=== PATIENT | male | born 1945 | race Caucasian/White ===

== ENCOUNTER 2016-12-23 11:30 | Emergency (ER) | payer MEDICARE, OTHER ==
[2016-12-23 11:33] VITALS: BP 133/62; PULSE 96; RESP 18; TEMP 97.4
[2016-12-23] MEDS ORDERED: TOPICAL SKIN ADHESIVE 1 EACH AMP TOPICAL ONE (11:48)
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
== END 2016-12-23 12:13 | disposition home or self-care (01) ==
LOC: EC 11:30
DX: S01.81XA Laceration without foreign body of other part of head, initial encounter (principal); I11.0 Hypertensive heart disease with heart failure; I50.9 Heart failure, unspecified; I48.91 Unspecified atrial fibrillation; F32.9 Major depressive disorder, single episode, unspecified; Z87.891 Personal history of nicotine dependence; Z79.82 Long term (current) use of aspirin; Z79.899 Other long term (current) drug therapy; W22.09XA Striking against other stationary object, initial encounter
CPT/HCPCS: 12013; 99282

== ENCOUNTER 2017-04-10 13:40 | Emergency (ER) | payer MEDICARE, OTHER ==
[2017-04-10 14:03] VITALS: TEMP 98.2
[2017-04-10] MEDS ORDERED: SODIUM CHLORIDE 0.9% 500 ML IV STA (14:41)
--- NOTE | 2017-04-10 15:02 | ED ---
General Adult HPI - General Chief complaint: Shortness of Breath Stated complaint: anxiety Time Seen by Provider: 04/10/17 14:36 Source: EMS, RN notes reviewed, Caregiver Mode of arrival: EMS Limitations: altered mental status - History of Present Illness Initial comments: 71 yo male presents to the ER with cc of episode of anxiety and shortness of breath. They state that he was very shaky today he seemed to be having some difficulty in breathing today. They state that they were concerned due to the patient's behavior so they thought they should be seen. He stated his blood pressure was elevated during that period. They state that he does suffer from mental handicap they state that he does suffer from shortness of breath and time to time but this just seemed different so they were concerned. Patient denies any recent fever, chills, shortness of breath, chest pain, back pain, abdominal pain, nausea vomiting, numbness or tingling, dysuria or hematuria, constipation or diarrhea, headaches or visual changes, or any other current symptoms. - Related Data Home Medications Medication Instructions Recorded Confirmed Simvastatin [Zocor] 40 mg PO HS 06/21/15 04/10/17 Tamsulosin [Flomax] 0.4 mg PO BID 06/21/15 04/10/17 busPIRone HCL [Buspar] 30 mg PO BID 06/21/15 04/10/17 Aspirin EC [Ecotrin Low Dose] 81 mg PO HS 07/02/16 04/10/17 Benazepril HCl 20 mg PO BID 07/02/16 04/10/17 DULoxetine HCL [Cymbalta] 60 mg PO DAILY 07/02/16 04/10/17 Econazole Nitrate 1 applic TOPICAL HS 07/02/16 04/10/17 Isosorbide Mononitrate ER [Imdur] 30 mg PO HS 07/02/16 04/10/17 Divalproex [Depakote] 250 mg PO HS 04/10/17 04/10/17 Furosemide [Lasix] 20 mg PO DAILY 04/10/17 04/10/17 Metoprolol Succinate [Toprol XL] 50 mg PO DAILY 04/10/17 04/10/17 guaiFENesin-DM 100-10MG/5ML 10 ml PO Q4H PRN 04/10/17 04/10/17 [Robitussin DM] hydrALAZINE HCL [Apresoline] 50 mg PO TID 04/10/17 04/10/17 Allergies Allergy/AdvReac Type Severity Reaction Status Date / Time No Known Allergies Allergy Verified 04/10/17 14:11 Review of Systems ROS Statement: Those systems with pertinent positive or pertinent negative responses have been documented in the HPI. ROS Other: All systems not noted in ROS Statement are negative. Past Medical History Past Medical History: Atrial Fibrillation, Heart Failure, Dementia, Hypertension , Prostate Disorder Additional Past Medical History / Comment(s): Mild mental retardation, lives in a detention. Slightly SOB @ times, has some dizziness @ times. History of Any Multi-Drug Resistant Organisms: None Reported Past Surgical History: Unable to Obtain Additional Past Surgical History / Comment(s): Cataracts, teeth extracted,fell at detention and required stitiches in the past. Full surgical hx. not available. Past Anesthesia/Blood Transfusion Reactions: No Reported Reaction Past Psychological History: Depression Smoking Status: Former smoker Past Alcohol Use History: None Reported Past Drug Use History: None Reported - Past Family History Father History Unknown: Yes Family Medical History: Unable to Obtain Mother History Unknown: Yes Family Medical History: Unable to Obtain General Exam - General Exam Comments Initial Comments: General: The patient is awake and alert, in no distress, and does not appear acutely ill. Eye: Pupils are equal, round and reactive to light, extra-ocular movements are intact; there is normal conjunctiva bilaterally. No signs of icterus. Ears, nose, mouth and throat: There are moist mucous membranes and no oral lesions. Neck: The neck is supple, there is no tenderness. Cardiovascular: There is a regular rate and rhythm. No murmur, rub or gallop is appreciated. Respiratory: Lungs are clear to auscultation, respirations are non-labored, breath sounds are equal. No wheezes, stridor, rales, or rhonchi. Gastrointestinal: Soft, non-distended, non-tender abdomen without masses or organomegaly noted. There is no rebound or guarding present. No CVA tenderness. Bowel sounds are unremarkable. Back: There is no tenderness to palpation in the midline. There is no obvious deformity. No rashes noted. Musculoskeletal: Normal ROM, no tenderness, There is no pedal edema. There is no calf tenderness or swelling. Sensation intact. Pulses equal bilaterally 2+. Neurological: CN II-XII intact, There are no obvious motor or sensory deficits. Coordination appears grossly intact. Speech is normal. Skin: Skin is warm and dry and no rashes or lesions are noted. Psychiatric: Cooperative, appropriate mood & affect, normal judgment. Limitations: altered mental status Course Vital Signs 04/10/17 13:59 Temperature 98.2 F Pulse Rate 83 Respiratory 18 Rate Blood Pressure 177/90 O2 Sat by Pulse 97 Oximetry EKG Findings - EKG Comments: EKG Findings:: normal sinus rhythm 80 bpm, normal axis, no atopy, no S-T depressions or elevations, Medical Decision Making - Medical Decision Making 70-year-old male presents for episode where he seemed to be having difficulty breathing. Patient has remained stable here and is 97 on room air. Patient decided 50 comfortably that he has had no episodes and blood work is reviewed and show any acute processes. This time we discussed likely upper respiratory infection. We discussed follow-up with Dr. donnie sagastume. We discussed other etiologies and when to come back to the ER. Family and patient stated he understood and they are in agreement with plan. They'll be discharged. - Lab Data Result diagrams: 04/10/17 15:13 04/10/17 15:13 Lab Results 04/10/17 04/10/17 04/10/17 Range/Units 15:13 15:13 15:13 WBC 12.4 H (3.8-10.6) k/uL RBC 4.94 (4.30-5.90) m/uL Hgb 15.9 (13.0-17.5) gm/dL Hct 45.8 (39.0-53.0) % MCV 92.6 (80.0-100.0) fL MCH 32.2 (25.0-35.0) pg MCHC 34.8 (31.0-37.0) g/dL RDW 12.5 (11.5-15.5) % Plt Count 212 (150-450) k/uL Neutrophils % 86 % Lymphocytes % 4 % Monocytes % 6 % Eosinophils % 2 % Basophils % 0 % Neutrophils # 10.7 H (1.3-7.7) k/uL Lymphocytes # 0.5 L (1.0-4.8) k/uL Monocytes # 0.7 (0-1.0) k/uL Eosinophils # 0.2 (0-0.7) k/uL Basophils # 0.0 (0-0.2) k/uL PT (9.0-12.0) sec INR (<1.2) APTT (22.0-30.0) sec Sodium 132 L (137-145) mmol/L Potassium 4.1 (3.5-5.1) mmol/L Chloride 98 (98-107) mmol/L Carbon Dioxide 23 (22-30) mmol/L Anion Gap 11 mmol/L BUN 14 (9-20) mg/dL Creatinine 0.94 (0.66-1.25) mg/dL Est GFR (MDRD) Af Amer >60 (>60 ml/min/1.73 sqM) Est GFR (MDRD) Non-Af >60 (>60 ml/min/1.73 sqM) Glucose 121 H (74-99) mg/dL Calcium 9.2 (8.4-10.2) mg/dL Magnesium 1.9 (1.6-2.3) mg/dL Total Bilirubin 1.0 (0.2-1.3) mg/dL AST 23 (17-59) U/L ALT 33 (21-72) U/L Alkaline Phosphatase 79 (38-126) U/L Total Creatine Kinase 290 H (55-170) U/L CK-MB (CK-2) 2.6 H* (0.0-2.4) ng/mL CK-MB (CK-2) Rel Index 0.9 Troponin I <0.012 (0.000-0.034) ng/mL Total Protein 7.5 (6.3-8.2) g/dL Albumin 4.6 (3.5-5.0) g/dL 04/10/17 Range/Units 15:13 WBC (3.8-10.6) k/uL RBC (4.30-5.90) m/uL Hgb (13.0-17.5) gm/dL Hct (39.0-53.0) % MCV (80.0-100.0) fL MCH (25.0-35.0) pg MCHC (31.0-37.0) g/dL RDW (11.5-15.5) % Plt Count (150-450) k/uL Neutrophils % % Lymphocytes % % Monocytes % % Eosinophils % % Basophils % % Neutrophils # (1.3-7.7) k/uL Lymphocytes # (1.0-4.8) k/uL Monocytes # (0-1.0) k/uL Eosinophils # (0-0.7) k/uL Basophils # (0-0.2) k/uL PT 10.6 (9.0-12.0) sec INR 1.0 (<1.2) APTT 27.7 (22.0-30.0) sec Sodium (137-145) mmol/L Potassium (3.5-5.1) mmol/L Chloride (98-107) mmol/L Carbon Dioxide (22-30) mmol/L Anion Gap mmol/L BUN (9-20) mg/dL Creatinine (0.66-1.25) mg/dL Est GFR (MDRD) Af Amer (>60 ml/min/1.73 sqM) Est GFR (MDRD) Non-Af (>60 ml/min/1.73 sqM) Glucose (74-99) mg/dL Calcium (8.4-10.2) mg/dL Magnesium (1.6-2.3) mg/dL Total Bilirubin (0.2-1.3) mg/dL AST (17-59) U/L ALT (21-72) U/L Alkaline Phosphatase (38-126) U/L Total Creatine Kinase (55-170) U/L CK-MB (CK-2) (0.0-2.4) ng/mL CK-MB (CK-2) Rel Index Troponin I (0.000-0.034) ng/mL Total Protein (6.3-8.2) g/dL Albumin (3.5-5.0) g/dL - Radiology Data Radiology results: report reviewed, image reviewed Disposition Clinical Impression: Upper respiratory infection, Cough Disposition: HOME SELF-CARE Condition: Stable Instructions: Upper Respiratory Infection (ED) Additional Instructions: Please use medication as discussed. Please follow up with family doctor if symptoms have not improved over the next two days. Please return to the emergency room if your symptoms increase or worsen or for any other concerns. Referrals: Sari Molina MD [STAFF PHYSICIAN] - 1-2 days Time of Disposition: 16:13
[2017-04-10 15:24] LABS: Basophils % (A) 0 %; CH 32.1; CHCM 34.8; Eosinophils # (A) 0.2 k/uL (0-0.7); Eosinophils % (A) 2 %; HCT 45.8 % (39.0-53.0); HDW 2.48; HGB 15.9 gm/dL (13.0-17.5); Luc % (Auto) 2; Lymphocytes # (A) 0.5 k/uL (1.0-4.8); Lymphocytes % (A) 4 %; MCH 32.2 pg (25.0-35.0); MCHC 34.8 g/dL (31.0-37.0); MCV 92.6 fL (80.0-100.0); Mean Platelet Volume 6.7; Monocytes # (A) 0.7 k/uL (0-1.0); Monocytes % (A) 6 %; Neutrophils # (A) 10.7 k/uL (1.3-7.7); Neutrophils % (A) 86 %; RBC 4.94 m/uL (4.30-5.90); RDW 12.5 % (11.5-15.5); WBC 12.4 k/uL (3.8-10.6); WBC (Perox) 12.49
[2017-04-10 15:36] LABS: ALT 33 U/L (21-72); AST 23 U/L (17-59); Alkaline Phosphatase 79 U/L (38-126); Anion Gap 11 mmol/L; Blood Urea Nitrogen 14 mg/dL (9-20); Calcium 9.2 mg/dL (8.4-10.2); Carbon Dioxide 23 mmol/L (22-30); Chloride 98 mmol/L (98-107); Glucose 121 mg/dL (74-99); Magnesium 1.9 mg/dL (1.6-2.3); Non-African American GFR(MDRD) >60 (>60 ml/min/1.73 sqM); Potassium 4.1 mmol/L (3.5-5.1); Sodium 132 mmol/L (137-145); Total Protein 7.5 g/dL (6.3-8.2)
[2017-04-10 15:42] LABS: Partial Thromboplastin Time 27.7 sec (22.0-30.0); Prothrombin Time 10.6 sec (9.0-12.0)
[2017-04-10 15:44] LABS: Creatine Kinase 290 U/L (55-170)
[2017-04-10 15:57] LABS: Troponin I <0.012 ng/mL (0.000-0.034)
[2017-04-10 15:59] LABS: Creatine Kinase MB 2.6 ng/mL (0.0-2.4)
--- NOTE | 2017-04-10 16:05 | XR ---
EXAMINATION TYPE: XR chest 2V DATE OF EXAM: 04/10/2017 COMPARISON: Chest x-ray July 04, 2016. HISTORY: Anxiety and shortness of breath TECHNIQUE: Frontal and lateral views of the chest are obtained. FINDINGS: There is chronic parenchymal change without suspicious focal air space opacity, pleural ef fusion, or pneumothorax seen. The cardiac silhouette size is enlarged with ectatic and atherosclerot ic thoracic aorta. The osseous structures are demineralized. IMPRESSION: Chronic parenchymal changes and cardiomegaly without acute pulmonary process currently.
[2017-04-10 16:33] VITALS: BP 165/86; PULSE 87; RESP 17
== END 2017-04-10 16:33 | disposition home or self-care (01) ==
LOC: EC 13:40
DX: J06.9 Acute upper respiratory infection, unspecified (principal); R06.02 Shortness of breath; I48.91 Unspecified atrial fibrillation; I50.9 Heart failure, unspecified; I11.0 Hypertensive heart disease with heart failure; N42.9 Disorder of prostate, unspecified; F03.90 Unspecified dementia, unspecified severity, without behavioral disturbance, psychotic disturbance, mood disturbance, and anxiety; F32.9 Major depressive disorder, single episode, unspecified; Z87.891 Personal history of nicotine dependence; Z79.82 Long term (current) use of aspirin; Z79.899 Other long term (current) drug therapy
CPT/HCPCS: 36415; 71020; 80053; 82550; 82553; 83735; 84484; 85025; 85610; 85730; 93005; 96360; 99285

== ENCOUNTER 2017-05-14 09:05 | Inpatient (IN) | payer MEDICARE, OTHER ==
[2017-05-14 09:30] LABS: Glucose,Whole Blood 105 mg/dL (75-99)
[2017-05-14] MEDS ORDERED: SODIUM CHLORIDE 0.9% 1,000 ML IV STA (09:30)
--- NOTE | 2017-05-14 09:34 | ED ---
Neuro HPI - General Chief Complaint: Neuro Symptoms/Deficit Stated Complaint: slurred speach,facial droop Time Seen by Provider: 05/14/17 09:20 Source: patient, RN notes reviewed, old records reviewed, Caregiver Mode of arrival: wheelchair Limitations: physical limitation - History of Present Illness Is the patient presenting with stroke symptoms?: No Initial Comments: This is a 71-year-old male with a history of posttraumatic stress disorder hypertension possible UTI recently who is noted by his caregiver this morning to have right-sided facial droop leaning to the side and tongue deviating to the right side. This is since cleared up. He seems more back to his usual salt he's had no recent fevers chills nausea vomiting sweats no cough or phlegm production. - Related Data Home Medications: Home Medications Medication Instructions Recorded Confirmed Simvastatin [Zocor] 40 mg PO HS 06/21/15 05/14/17 Tamsulosin [Flomax] 0.4 mg PO BID 06/21/15 05/14/17 busPIRone HCL [Buspar] 30 mg PO BID 06/21/15 05/14/17 Aspirin EC [Ecotrin Low Dose] 81 mg PO HS 07/02/16 05/14/17 Benazepril HCl 20 mg PO BID 07/02/16 05/14/17 DULoxetine HCL [Cymbalta] 60 mg PO DAILY 07/02/16 05/14/17 Econazole Nitrate 1 applic TOPICAL HS 07/02/16 05/14/17 Isosorbide Mononitrate ER [Imdur] 30 mg PO HS 07/02/16 05/14/17 Divalproex [Depakote] 250 mg PO HS 04/10/17 05/14/17 Furosemide [Lasix] 20 mg PO DAILY 04/10/17 05/14/17 Metoprolol Succinate [Toprol XL] 50 mg PO DAILY 04/10/17 05/14/17 guaiFENesin-DM 100-10MG/5ML 10 ml PO Q4H PRN 04/10/17 05/14/17 [Robitussin DM] hydrALAZINE HCL [Apresoline] 50 mg PO TID 04/10/17 05/14/17 Loratadine [Claritin] 10 mg PO HS 05/14/17 05/14/17 hydrALAZINE HCL [Apresoline] 25 mg PO BID PRN 05/14/17 05/14/17 Allergies/Adverse Reactions: Allergies Allergy/AdvReac Type Severity Reaction Status Date / Time No Known Allergies Allergy Verified 05/14/17 09:46 Review of Systems ROS Statement: Those systems with pertinent positive or pertinent negative responses have been documented in the HPI. ROS Other: All systems not noted in ROS Statement are negative. General Exam - General Exam Comments Initial Comments: This is a well-developed asthenic appearing male who seems awake alert at this time Limitations: physical limitation General appearance: alert, in no apparent distress Head exam: Present: atraumatic, normocephalic, normal inspection Eye exam: Present: normal appearance, PERRL, EOMI. Absent: scleral icterus, conjunctival injection, periorbital swelling ENT exam: Present: mucous membranes dry, other (The patient is edentulous) Neck exam: Present: normal inspection. Absent: tenderness, meningismus, lymphadenopathy Respiratory exam: Present: normal lung sounds bilaterally. Absent: respiratory distress, wheezes, rales, rhonchi, stridor Cardiovascular Exam: Present: normal rhythm, irregular rhythm (Evidence of PVCs) , normal heart sounds. Absent: systolic murmur, diastolic murmur, rubs, gallop , clicks GI/Abdominal exam: Present: soft, normal bowel sounds. Absent: distended, tenderness, guarding, rebound, rigid Extremities exam: Present: normal inspection, full ROM, normal capillary refill. Absent: tenderness, pedal edema, joint swelling, calf tenderness Back exam: Present: normal inspection Neurological exam: Present: alert, oriented X3, CN II-XII intact Psychiatric exam: Present: normal affect, normal mood Skin exam: Present: warm, dry, intact, normal color. Absent: rash Stroke MDM - Lab Data Result diagrams: 05/14/17 09:40 05/14/17 09:40 Lab Results 05/14/17 05/14/17 05/14/17 Range/Units 09:28 09:40 09:40 WBC 6.3 (3.8-10.6) k/uL RBC 4.54 (4.30-5.90) m/uL Hgb 14.3 (13.0-17.5) gm/dL Hct 41.9 (39.0-53.0) % MCV 92.3 (80.0-100.0) fL MCH 31.4 (25.0-35.0) pg MCHC 34.1 (31.0-37.0) g/dL RDW 13.5 (11.5-15.5) % Plt Count 231 (150-450) k/uL Neutrophils % 57 % Lymphocytes % 23 % Monocytes % 10 % Eosinophils % 6 % Basophils % 1 % Neutrophils # 3.6 (1.3-7.7) k/uL Lymphocytes # 1.4 (1.0-4.8) k/uL Monocytes # 0.6 (0-1.0) k/uL Eosinophils # 0.4 (0-0.7) k/uL Basophils # 0.0 (0-0.2) k/uL PT (9.0-12.0) sec INR (<1.2) APTT (22.0-30.0) sec Sodium (137-145) mmol/L Potassium (3.5-5.1) mmol/L Chloride (98-107) mmol/L Carbon Dioxide (22-30) mmol/L Anion Gap mmol/L BUN (9-20) mg/dL Creatinine (0.66-1.25) mg/dL Est GFR (MDRD) Af Amer (>60 ml/min/1.73 sqM) Est GFR (MDRD) Non-Af (>60 ml/min/1.73 sqM) Glucose (74-99) mg/dL POC Glucose (mg/dL) 105 H (75-99) mg/dL POC Glu Car Tracer ID Juan Jose Camacho Calcium (8.4-10.2) mg/dL Magnesium (1.6-2.3) mg/dL Total Bilirubin (0.2-1.3) mg/dL AST (17-59) U/L ALT (21-72) U/L Alkaline Phosphatase (38-126) U/L Total Creatine Kinase 576 H (55-170) U/L CK-MB (CK-2) 7.1 H* (0.0-2.4) ng/mL CK-MB (CK-2) Rel Index 1.2 Troponin I <0.012 (0.000-0.034) ng/mL Total Protein (6.3-8.2) g/dL Albumin (3.5-5.0) g/dL 05/14/17 05/14/17 Range/Units 09:40 09:40 WBC (3.8-10.6) k/uL RBC (4.30-5.90) m/uL Hgb (13.0-17.5) gm/dL Hct (39.0-53.0) % MCV (80.0-100.0) fL MCH (25.0-35.0) pg MCHC (31.0-37.0) g/dL RDW (11.5-15.5) % Plt Count (150-450) k/uL Neutrophils % % Lymphocytes % % Monocytes % % Eosinophils % % Basophils % % Neutrophils # (1.3-7.7) k/uL Lymphocytes # (1.0-4.8) k/uL Monocytes # (0-1.0) k/uL Eosinophils # (0-0.7) k/uL Basophils # (0-0.2) k/uL PT 10.3 (9.0-12.0) sec INR 1.0 (<1.2) APTT 29.8 (22.0-30.0) sec Sodium 133 L (137-145) mmol/L Potassium 4.3 (3.5-5.1) mmol/L Chloride 98 (98-107) mmol/L Carbon Dioxide 28 (22-30) mmol/L Anion Gap 7 mmol/L BUN 22 H (9-20) mg/dL Creatinine 1.07 (0.66-1.25) mg/dL Est GFR (MDRD) Af Amer >60 (>60 ml/min/1.73 sqM) Est GFR (MDRD) Non-Af >60 (>60 ml/min/1.73 sqM) Glucose 89 (74-99) mg/dL POC Glucose (mg/dL) (75-99) mg/dL POC Glu Car Tracer ID Calcium 9.4 (8.4-10.2) mg/dL Magnesium 1.9 (1.6-2.3) mg/dL Total Bilirubin 0.7 (0.2-1.3) mg/dL AST 36 (17-59) U/L ALT 35 (21-72) U/L Alkaline Phosphatase 53 (38-126) U/L Total Creatine Kinase (55-170) U/L CK-MB (CK-2) (0.0-2.4) ng/mL CK-MB (CK-2) Rel Index Troponin I (0.000-0.034) ng/mL Total Protein 7.0 (6.3-8.2) g/dL Albumin 4.0 (3.5-5.0) g/dL - NIH Stroke Scale 1a. Level of Consciousness: (0) alert 1b. LOC Questions: (0) answers correctly 1c. LOC Commands: (0) performs tasks correctly 2. Best Gaze: (0) normal 3. Visual: (0) no visual loss 4. Facial Palsy: (0) normal symmetrical movement 5a. Motor Arm Left: (0) no drift 5b. Motor Arm Right: (0) no drift 6a. Motor Leg Left: (0) no drift 6b. Motor Leg Right: (0) no drift 7. Limb Ataxia: (0) absent 8. Sensory: (0) normal 9. Best Language: (0) no aphasia 10. Dysarthria: (0) normal 11. Extinction/Inattention: (0) no abnormality - Thrombolytic Inclusion/Exclusion Thrombolytic Contraindications: Rapidly Improving s/s - Medical Decision Making I did review the imaging and reports no acute findings. Patient is demonstrated no further symptoms he did have clinical evidence of TIA. He will be admitted I did discuss case with the patient the caregiver and with the admitting service. - EKG Data -: EKG Interpreted by Me EKG shows normal: sinus rhythm (Sinus rhythm rate 73. Interval 138 QRS 80 QT since QTC of 426/469 evidence of PVCs from 2 foci) Past Medical History Past Medical History: Atrial Fibrillation, Heart Failure, Dementia, Hypertension , Prostate Disorder Additional Past Medical History / Comment(s): Mild mental retardation, lives in a detention. Slightly SOB @ times, has some dizziness @ times. History of Any Multi-Drug Resistant Organisms: None Reported Past Surgical History: Unable to Obtain Additional Past Surgical History / Comment(s): Cataracts, teeth extracted,fell at detention and required stitiches in the past. Full surgical hx. not available. Past Anesthesia/Blood Transfusion Reactions: No Reported Reaction Past Psychological History: Depression Smoking Status: Former smoker Past Alcohol Use History: None Reported Past Drug Use History: None Reported - Past Family History Father History Unknown: Yes Family Medical History: Unable to Obtain Mother History Unknown: Yes Family Medical History: Unable to Obtain Course Vital Signs 05/14/17 05/14/17 05/14/17 09:16 09:30 09:40 Temperature 97.5 F L 97.3 F L 97.1 F L Pulse Rate 83 70 69 Respiratory 20 18 18 Rate Blood Pressure 158/86 164/87 160/83 O2 Sat by Pulse 97 99 98 Oximetry 05/14/17 05/14/17 05/14/17 09:55 10:10 10:25 Temperature 97.5 F L 97.6 F 97.0 F L Pulse Rate 70 65 70 Respiratory 17 18 18 Rate Blood Pressure 138/77 137/71 135/73 O2 Sat by Pulse 99 99 99 Oximetry 05/14/17 05/14/17 05/14/17 10:35 10:40 11:28 Temperature 97 F L Pulse Rate 72 64 68 Respiratory 17 18 18 Rate Blood Pressure 85/67 114/70 135/79 O2 Sat by Pulse 97 99 100 Oximetry - Reevaluation(s) Reevaluation #1: 05/14/17 11:44 I did reevaluate patient no further findings per the caregiver. No new complaints Disposition Clinical Impression: Transient cerebral ischemia Disposition: ADMITTED IP TO THIS [facility] Condition: Stable Referrals: Elliot Wolf MD [Primary Care Provider] - 1-2 days
[2017-05-14 09:59] LABS: Basophils % (A) 1 %; CH 31.1; CHCM 33.8; Eosinophils # (A) 0.4 k/uL (0-0.7); Eosinophils % (A) 6 %; HCT 41.9 % (39.0-53.0); HDW 2.34; HGB 14.3 gm/dL (13.0-17.5); Luc # (Auto) 0.24; Luc % (Auto) 4; Lymphocytes # (A) 1.4 k/uL (1.0-4.8); Lymphocytes % (A) 23 %; MCH 31.4 pg (25.0-35.0); MCHC 34.1 g/dL (31.0-37.0); MCV 92.3 fL (80.0-100.0); Mean Platelet Volume 7.9; Monocytes # (A) 0.6 k/uL (0-1.0); Monocytes % (A) 10 %; Neutrophils # (A) 3.6 k/uL (1.3-7.7); Neutrophils % (A) 57 %; RBC 4.54 m/uL (4.30-5.90); RDW 13.5 % (11.5-15.5); WBC 6.3 k/uL (3.8-10.6); WBC (Perox) 6.61
[2017-05-14 10:03] LABS: Partial Thromboplastin Time 29.8 sec (22.0-30.0); Prothrombin Time 10.3 sec (9.0-12.0)
[2017-05-14 10:04] LABS: ALT 35 U/L (21-72); AST 36 U/L (17-59); Alkaline Phosphatase 53 U/L (38-126); Anion Gap 7 mmol/L; Blood Urea Nitrogen 22 mg/dL (9-20); Calcium 9.4 mg/dL (8.4-10.2); Carbon Dioxide 28 mmol/L (22-30); Chloride 98 mmol/L (98-107); Glucose 89 mg/dL (74-99); Magnesium 1.9 mg/dL (1.6-2.3); Non-African American GFR(MDRD) >60 (>60 ml/min/1.73 sqM); Potassium 4.3 mmol/L (3.5-5.1); Sodium 133 mmol/L (137-145); Total Bilirubin 0.7 mg/dL (0.2-1.3)
--- NOTE | 2017-05-14 10:11 | CT ---
EXAMINATION TYPE: CT brain wo con for TPA DATE OF EXAM: 05/14/2017 COMPARISON: NONE HISTORY: 71-year-old male Lt sided facial droop, slurred speech TECHNIQUE: Examination was done in axial plane without intravenous contrast. Coronal and sagittal r econstructions performed. CT DLP: 1033.9 mGycm Automated exposure control for dose reduction was used. FINDINGS: There is no evidence of acute intracranial hemorrhage, acute ischemic changes, mass, mass-effect, or extra-axial fluid collection. There is no effacement of cerebral sulci or basal subarachnoid cister ns. 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 Mild to moderate patchy white matter hypodensities unchanged from 07/02/2016. There is no midline shift. Spangler-white matter distinction is preserved. Mild mucosal thickening throughout the ethmoid air cells and left maxillary sinus. Rightward nasal se ptal deviation. Mastoid air cells are well pneumatized. IMPRESSION: 1. No acute intracranial abnormality seen. If symptoms persist, follow-up CT or MRI. 2. Agenesis of the corpus callosum redemonstrated. Similar patchy white matter hypodensities suggest changes of chronic small vessel ischemic disease.
--- NOTE | 2017-05-14 10:14 | XR ---
EXAMINATION TYPE: XR chest 2V DATE OF EXAM: 05/14/2017 COMPARISON: 04/10/2017 HISTORY: 71-year-old male slurred speech, altered mental status, TECHNIQUE: Frontal and lateral views FINDINGS: Heart is upper limits of normal in size. Mild elongation/ectasia of the thoracic aorta is unchanged. Diffuse interstitial prominence is unchanged. Old healed left-sided rib fracture deformity. No consol idation or pleural effusion. Endplate spondylosis midthoracic spine. IMPRESSION: Chronic changes and borderline heart size. No acute process seen.
[2017-05-14 10:17] LABS: Creatine Kinase 576 U/L (55-170)
[2017-05-14 10:30] LABS: Troponin I <0.012 ng/mL (0.000-0.034)
[2017-05-14 10:39] LABS: Creatine Kinase MB 7.1 ng/mL (0.0-2.4)
[2017-05-14] MEDS ORDERED: hydrALAZINE HCL 25 MG TAB PO PRN (11:48)
[2017-05-14] MEDS ORDERED: guaiFENesin-DM 100-10MG/5ML 10 ML CUP PO PRN (11:48)
[2017-05-14] MEDS: SODIUM CHLORIDE 0.9% 1,000 ML IV SCH (12:05)
--- NOTE | 2017-05-14 14:44 | US ---
EXAMINATION TYPE: US carotid duplex BILAT DATE OF EXAM: 05/14/2017 COMPARISON: US 2015 carotids CLINICAL HISTORY: Stenosis. Slurred speech, face drooping EXAM MEASUREMENTS: RIGHT: Peak Systolic Velocity (PSV) cm/sec ----- Right CCA: 60.8 ----- Right ICA: 102.0 ----- Right ECA: 91.0 ICA/CCA ratio: 1.7 RIGHT: End Diastole cm/sec ----- Right CCA: 16.2 ----- Right ICA: 34.8 ----- Right ECA: 12.8 LEFT: Peak Systolic Velocity (PSV) cm/sec ----- Left CCA: 61.2 ----- Left ICA: 94.3 ----- Left ECA: 121.3 ICA/CCA ratio: 1.5 LEFT: End Diastole cm/sec ----- Left CCA: 16.1 ----- Left ICA: 31.5 ----- Left ECA: 31.5 VERTEBRALS (direction of flow): Right Vertebral: Antegrade Left Vertebral: Antegrade Rhythm: Normal Bilateral intimal thickening, plaque bilateral bulb and left CCA, no elevated velocities, no signific ant stenosis. Grayscale, color Doppler, spectral Doppler imaging performed of the carotid arteries IMPRESSION: No significant hemodynamic stenosis of the proximal internal carotid arteries bilaterall y by Doppler criteria, an indirect measurement of carotid stenosis
[2017-05-14] MEDS: hydrALAZINE HCL 50 MG TAB PO SCH ×2 (17:47→21:09)
[2017-05-14 19:03] LABS: Glucose,Whole Blood 119 mg/dL (75-99)
--- NOTE | 2017-05-14 19:05 | P.CNNES ---
History of Present Illness Consult date: 05/14/17 History of Present Illness: The patient is a 71-year-old man with history of posttraumatic stress disorder who resides in a [facility]. Apparently he was found by caregiver to have right -sided facial droop and tongue deviation to the right. He was brought to the hospital with these symptoms. The patient is a poor historian. He does have a history of mild MR atrial fibrillation dementia and hypertension. The patient denies any new weakness numbness or visual complaint. The patient had a CT of the brain which showed agenesis of the corpus callosum and chronic small vessel ischemic changes Review of Systems ROS unobtainable: due to mental status Past Medical History Past Medical History: Atrial Fibrillation, Heart Failure, Dementia, Hyperlipidemia, Hypertension Additional Past Medical History / Comment(s): Recent UTI-completed ABX, recently been "choking alittle", mild mental retardation, vertigo at times, SOB at times. History of Any Multi-Drug Resistant Organisms: None Reported Past Surgical History: Unable to Obtain Additional Past Surgical History / Comment(s): Bilateral cataracts removed with lens implants, teeth extracted. Past Anesthesia/Blood Transfusion Reactions: No Reported Reaction Smoking Status: Former smoker - Past Family History Father History Unknown: Yes Family Medical History: Unable to Obtain Mother History Unknown: Yes Family Medical History: Blood Disorder Additional Family Medical History / Comment(s): Mother had Factor 8 disease and was a bleeder. Medications and Allergies Home Medications Medication Instructions Recorded Confirmed Type Simvastatin [Zocor] 40 mg PO HS 06/21/15 05/14/17 History Tamsulosin [Flomax] 0.4 mg PO BID 06/21/15 05/14/17 History busPIRone HCL [Buspar] 30 mg PO BID 06/21/15 05/14/17 History Aspirin EC [Ecotrin Low Dose] 81 mg PO HS 07/02/16 05/14/17 History Benazepril HCl 20 mg PO BID 07/02/16 05/14/17 History DULoxetine HCL [Cymbalta] 60 mg PO DAILY 07/02/16 05/14/17 History Econazole Nitrate 1 applic TOPICAL HS 07/02/16 05/14/17 History Isosorbide Mononitrate ER [Imdur] 30 mg PO HS 07/02/16 05/14/17 History Divalproex [Depakote] 250 mg PO HS 04/10/17 05/14/17 History Furosemide [Lasix] 20 mg PO DAILY 04/10/17 05/14/17 History Metoprolol Succinate [Toprol XL] 50 mg PO DAILY 04/10/17 05/14/17 History guaiFENesin-DM 100-10MG/5ML 10 ml PO Q4H PRN 04/10/17 05/14/17 History [Robitussin DM] hydrALAZINE HCL [Apresoline] 50 mg PO TID 04/10/17 05/14/17 History Loratadine [Claritin] 10 mg PO HS 05/14/17 05/14/17 History hydrALAZINE HCL [Apresoline] 25 mg PO BID PRN 05/14/17 05/14/17 History Allergies Allergy/AdvReac Type Severity Reaction Status Date / Time No Known Allergies Allergy Verified 05/14/17 09:46 Physical Examination - Vital Signs Vital Signs: Vital Signs Temp Pulse Pulse Resp BP BP Pulse Ox 05/14/17 15:16 63 16 148/71 100 05/14/17 13:40 97.7 F 72 15 150/78 05/14/17 12:40 97.7 F 68 18 133/82 100 05/14/17 12:05 97 F L 66 15 133/62 100 05/14/17 11:40 97.4 F L 69 18 135/79 98 05/14/17 11:28 68 18 135/79 100 05/14/17 11:10 97.6 F 67 18 126/76 99 05/14/17 10:40 64 18 114/70 99 05/14/17 10:35 97 F L 72 17 85/67 97 05/14/17 10:25 97.0 F L 70 18 135/73 99 05/14/17 10:10 97.6 F 65 18 137/71 99 05/14/17 09:55 97.5 F L 70 17 138/77 99 05/14/17 09:40 97.1 F L 69 18 160/83 98 05/14/17 09:30 97.3 F L 70 18 164/87 99 05/14/17 09:16 97.5 F L 83 20 158/86 97 Intake and Output 05/14/17 05/14/17 05/14/17 06:59 14:59 22:59 Intake Total 180 Output Total 10 Balance 170 Intake: Oral 180 Output: Urine 10 Other: Voiding Method Urinal # Voids 1 Weight 58.967 kg Patient Weight 05/15/17 06:59 Weight 58.967 kg - Constitutional General appearance: average body habitus - EENT EENT: PERRL, hearing intact, vision intact - Respiratory Respiratory: lungs clear - Cardiovascular Cardiovascular: regular rate - Neurologic Total status the patient is mentally challenged. He did follow simple commands. He has some speech dysarthria. Cranial nerve examination: PERRL, EOMI, VFF, face symmetric, tongue midline Speech examination: other (Dysarthria) Detailed motor examination: grossly full strength in all extremities Results - Laboratory Findings CBC and BMP: 05/14/17 09:40 05/14/17 09:40 Abnormal Lab Findings: Abnormal Labs 05/14/17 05/14/17 05/14/17 09:28 09:40 09:40 Sodium 133 L BUN 22 H POC Glucose (mg/dL) 105 H Total Creatine Kinase 576 H CK-MB (CK-2) 7.1 H* Assessment and Plan (1) Transient cerebral ischemia Current Visit: Yes Status: Acute SNOMED Code(s): 353053747 (2) Cognitive developmental delay Current Visit: No Status: Chronic SNOMED Code(s): 189738032 Plan: The patient is a 71-year-old man admitted to the hospital with transient facial droop. He has had a CAT scan of the brain which was unremarkable except for stable appearing agenesis of the corpus callosum and chronic small vessel ischemic changes. He has Had a carotid ultrasound. This did not reveal any significant stenosis. . Recommend echocardiogram Patient's main risk factor for stroke is atrial fibrillation. Recommend cardiology evaluation.
[2017-05-14] MEDS: ASPIRIN 81 MG PO SCH (20:12)
[2017-05-14] MEDS: busPIRone HCl 10 MG TAB PO SCH (20:12)
[2017-05-14] MEDS: ISOSORBIDE MONONITRATE ER 30 MG TAB.ER.24H PO SCH (20:13)
[2017-05-14] MEDS: KETOCONAZOLE 2% SHAMPOO 1 APPLIC/ML TOPICAL SCH (20:13)
[2017-05-14] MEDS: DIVALPROEX 250 MG TABLET.DR PO SCH (20:13)
[2017-05-14] MEDS: TAMSULOSIN 0.4 MG CAP.ER.24H PO SCH (20:14)
[2017-05-14] MEDS ORDERED: LORATADINE 10 MG TAB PO SCH (21:00)
[2017-05-14] MEDS ORDERED: ATORVASTATIN 20 MG TAB PO SCH (21:00)
[2017-05-14 21:01] LABS: Appearance,Urine Cloudy (Clear); Bacteria,Urine Rare /hpf; Bilirubin,Urine Negative (Negative); Glucose,Urine (UA) Negative (Negative); Ketones,Urine Negative (Negative); Leukocyte Esterase,Urine Negative (Negative); Nitrite,Urine Negative (Negative); Particle Count 10005; Protein,Urine Negative (Negative); RBC,Urine 2 /hpf (0-5); Specific Gravity,Urine 1.009 (1.001-1.035); UA Billing (MACRO vs. MICRO) MICRO; Urobilinogen,Urine <2.0 mg/dL (<2.0); WBC,Urine 1 /hpf (0-5)
--- NOTE | 2017-05-14 23:02 | P.HPIM ---
History of Present Illness H&P Date: 05/14/17 Chief Complaint: Slurred speech facial droop HISTORY OF PRESENT ILLNESS: 71-year-old male with developmental delay patient of Dr. Lj Wolf chronic stable medical conditions that include atrial fibrillation, heart failure, dementia, hyperlipidemia, hypertension who resides in a nursing home was found by his caregivers to have right-sided facial droop and tongue deviation to the right. He was brought to the hospital for further evaluation, patient himself is a poor historian, most information obtained from medical record. REVIEW OF SYSTEMS Difficult to complete due to patient's developmental delay PAST MEDICAL HISTORY Past medical history: Atrial fibrillation, heart failure, dementia, hypertension , prostate disorder Past surgical history: Cataracts, teeth extracted, full history not available Past psychological history: Depression SOCIAL HISTORY: Additional psychological/social history: Smoking use history: One pack per day 30 years, quit in 1996 Alcohol use history: None Drug use history: None FAMILY HISTORY: Mother: Factor VIII bleeding disorder Father: Unavailable HOME MEDICATION: Hydralazine 25 mg by mouth twice a day when necessary Robitussin-DM 10 mL by mouth every 4 hours when necessary, Claritin 10 mg by mouth at bedtime Isosorbide mononitrate ER 30 mg by mouth at bedtime Econazole Nitrate topical application at at bedtime. Aspirin EC 81 mg by mouth at bedtime Hydralazine 50 mg by mouth 3 times a day Tamsulosin 0.4 mg by mouth twice a day Simvastatin 40 mg by mouth at bedtime Divalproex 250 mg by mouth at bedtime Benzapril 20 mg by mouth twice a day Buspirone 30 mg by mouth twice a day metoprolol succinate 50 mg by mouth daily Furosemide 20 mg by mouth daily Duloxetine 60 mg by mouth daily ALLERGIES: No known ALLERGIES VITAL SIGNS: [Temperature 98.7, pulse 81, respiratory rate 19, blood pressure 180/90, oxygen saturation 98% on 2 L. BMI noted] GENERAL: [Thin build, lying in bed, comfortable]. EYES: [Pupils equal. Conjunctiva juan c]l. HEENT: [External appearance of nose and ears normal, oral cavity grossly normal] . NECK: [JVD not raised; masses not palpable]. HEART: [First and second heart sounds are normal; no edema]. LUNGS:[ Respiratory rate normal; clear to auscultation]. ABDOMEN: [Soft, nontender, liver spleen not palpable, no masses palpable]. LYMPHATICS: [No lymph nodes palpable in the axilla and neck]. PSYCH: [Alert and oriented x3; mood and affect juan c]l. NEUROLOGICAL: [Cranial nerves grossly intact; no facial asymmetry, power and sensation grossly intact]. INVESTIGATIONS: CBC grossly unremarkable sodium 133, Accu-Cheks noted. Brain CT: No acute intracranial abnormality seen. Agenesis of the corpus callosum redemonstrated. Similar patchy white matter hypodensities suggest changes of chronic small vessel ischemic disease Carotid ultrasound: No significant hemodynamic stenosis of the proximal internal carotid arteries bilaterally ASSESSMENT: -Possible Trans-ischemic attack in a patient who experienced tongue deviation and right sided facial droop -Essential hypertension, -benign prostatic hypertrophy -Chronic persistent atrial fibrillation, controlled rate not on any anti- coagulation at this time -Medical debility, patient uses a walker -Medical asthenia -Depression not otherwise specified PLAN: Home medication reordered, serial neuro checks, neurology consulted. We will continue to follow closely. 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 Pink. Past Medical History Past Medical History: Atrial Fibrillation, Heart Failure, Dementia, Hyperlipidemia, Hypertension Additional Past Medical History / Comment(s): Recent UTI-completed ABX, recently been "choking alittle", mild mental retardation, vertigo at times, SOB at times. History of Any Multi-Drug Resistant Organisms: None Reported Past Surgical History: Unable to Obtain Additional Past Surgical History / Comment(s): Bilateral cataracts removed with lens implants, teeth extracted. Past Anesthesia/Blood Transfusion Reactions: No Reported Reaction Smoking Status: Former smoker - Past Family History Father History Unknown: Yes Family Medical History: Unable to Obtain Mother History Unknown: Yes Family Medical History: Blood Disorder Additional Family Medical History / Comment(s): Mother had Factor 8 disease and was a bleeder. Medications and Allergies Home Medications Medication Instructions Recorded Confirmed Type Simvastatin [Zocor] 40 mg PO HS 06/21/15 05/14/17 History Tamsulosin [Flomax] 0.4 mg PO BID 06/21/15 05/14/17 History busPIRone HCL [Buspar] 30 mg PO BID 06/21/15 05/14/17 History Aspirin EC [Ecotrin Low Dose] 81 mg PO HS 07/02/16 05/14/17 History Benazepril HCl 20 mg PO BID 07/02/16 05/14/17 History DULoxetine HCL [Cymbalta] 60 mg PO DAILY 07/02/16 05/14/17 History Econazole Nitrate 1 applic TOPICAL HS 07/02/16 05/14/17 History Isosorbide Mononitrate ER [Imdur] 30 mg PO HS 07/02/16 05/14/17 History Divalproex [Depakote] 250 mg PO HS 04/10/17 05/14/17 History Furosemide [Lasix] 20 mg PO DAILY 04/10/17 05/14/17 History Metoprolol Succinate [Toprol XL] 50 mg PO DAILY 04/10/17 05/14/17 History guaiFENesin-DM 100-10MG/5ML 10 ml PO Q4H PRN 04/10/17 05/14/17 History [Robitussin DM] hydrALAZINE HCL [Apresoline] 50 mg PO TID 04/10/17 05/14/17 History Loratadine [Claritin] 10 mg PO HS 05/14/17 05/14/17 History hydrALAZINE HCL [Apresoline] 25 mg PO BID PRN 05/14/17 05/14/17 History Allergies Allergy/AdvReac Type Severity Reaction Status Date / Time No Known Allergies Allergy Verified 05/14/17 09:46 Physical Exam Vitals: Vital Signs Temp Pulse Pulse Resp BP BP Pulse Ox 05/14/17 20:00 98.7 F 81 19 180/90 98 05/14/17 15:16 63 16 148/71 100 05/14/17 13:40 97.7 F 72 15 150/78 05/14/17 12:40 97.7 F 68 18 133/82 100 05/14/17 12:05 97 F L 66 15 133/62 100 05/14/17 11:40 97.4 F L 69 18 135/79 98 05/14/17 11:28 68 18 135/79 100 05/14/17 11:10 97.6 F 67 18 126/76 99 05/14/17 10:40 64 18 114/70 99 05/14/17 10:35 97 F L 72 17 85/67 97 05/14/17 10:25 97.0 F L 70 18 135/73 99 05/14/17 10:10 97.6 F 65 18 137/71 99 05/14/17 09:55 97.5 F L 70 17 138/77 99 05/14/17 09:40 97.1 F L 69 18 160/83 98 05/14/17 09:30 97.3 F L 70 18 164/87 99 05/14/17 09:16 97.5 F L 83 20 158/86 97 Intake and Output 05/14/17 05/14/17 05/14/17 06:59 14:59 22:59 Intake Total 360 Output Total 810 Balance -450 Intake: Oral 360 Output: Urine 810 Other: Voiding Method Urinal Incontinent # Voids 0 # Bowel Movements 1 Weight 58.967 kg Patient Weight 05/15/17 06:59 Weight 58.967 kg Results CBC & Chem 7: 05/14/17 09:40 05/14/17 09:40 Labs: Abnormal Lab Results - Last 24 Hours (Table) 05/14/17 05/14/17 05/14/17 Range/Units 09:28 09:40 09:40 Sodium 133 L (137-145) mmol/L BUN 22 H (9-20) mg/dL POC Glucose (mg/dL) 105 H (75-99) mg/dL Total Creatine Kinase 576 H (55-170) U/L CK-MB (CK-2) 7.1 H* (0.0-2.4) ng/mL Urine Bacteria (None) /hpf 05/14/17 05/14/17 Range/Units 19:01 19:15 Sodium (137-145) mmol/L BUN (9-20) mg/dL POC Glucose (mg/dL) 119 H (75-99) mg/dL Total Creatine Kinase (55-170) U/L CK-MB (CK-2) (0.0-2.4) ng/mL Urine Bacteria Rare H (None) /hpf Thrombosis Risk Factor Assmnt - Choose All That Apply Any of the Below Risk Factors Present?: Yes Other Risk Factors: Yes Each Risk Factor Represents 2 Points: Age 61-74 years Other congenital or acquired thrombophilia - If yes, enter type in comment: No Thrombosis Risk Factor Assessment Total Risk Factor Score: 2 Thrombosis Risk Factor Assessment Level: Low Risk
[2017-05-15 00:17] LABS: Cholesterol 101 mg/dL (<200); HDL Cholesterol 57 mg/dL (40-60)
--- NOTE | 2017-05-15 07:54 | HP ---
HISTORY AND PHYSICAL DATE OF ADMISSION: 05/14/2017. ATTENDING NOTE: This patient is seen and examined by me. I discussed with my nurse practitioner, Ms. Malhotra. This is a 71-year-old patient who lives in a senior living. Followed by [facility], Dr. Wolf. Chronic stable medical condition includes BPH, hypertension, atrial fibrillation, history of mental retardation, uses a walker to get about. Patient is not a good historian. Patient was sent in because there was some facial asymmetry noted. Exact duration is unknown, but symptoms completely resolved by the time he came here. Patient denies any double vision, any headache, or any weakness of any particular site. EXAMINATION: On examination, temperature 97.7, pulse 72, respirations 15, blood pressure 150/78, pulse ox 100 on 2-L. GENERAL APPEARANCE: Lying in bed. Patient has a prominent nasal bridge. No facial asymmetry. LUNGS: Clear. CARDIOVASCULAR: First and second sounds are normal. NEUROLOGICAL: Weinberg equal and symmetrical. Sensation grossly preserved. INVESTIGATIONS: White count normal, hemoglobin 14.3, potassium 4.3, troponin negative. EKG shows PVCs. Carotid Doppler unremarkable. CT scan of the brain nonspecific. ASSESSMENT: 1. Possible transient ischemic attack. 2. Benign prostatic hypertrophy. 3. Essential hypertension. 4. PVCs. 5. Gait dysfunction, at baseline uses a walker. 6. Chronic mental retardation with significant cognitive impairment. PLAN: Patient is on aspirin. Neurology was consulted. Neuro checks are in place. Will also add Lipitor. Patient's symptoms are completely resolved. 1. MMODL / IJN: [id number] /
[2017-05-15] MEDS: METOPROLOL SUCCINATE (ER) 50 MG TAB.ER.24H PO SCH (08:44)
[2017-05-15] MEDS: FUROSEMIDE 20 MG TAB PO SCH (08:44)
[2017-05-15] MEDS: TAMSULOSIN 0.4 MG CAP.ER.24H PO SCH ×2 (08:44→20:18)
[2017-05-15] MEDS: hydrALAZINE HCL 50 MG TAB PO SCH ×3 (08:44→22:11)
[2017-05-15] MEDS: busPIRone HCl 10 MG TAB PO SCH ×2 (08:44→20:16)
[2017-05-15] MEDS: CLOPIDOGREL 75 MG TAB PO SCH (08:44)
[2017-05-15] MEDS: ENOXAPARIN 40 MG/0.4 ML SYRINGE SQ SCH (08:45)
[2017-05-15] MEDS: LISINOPRIL 20 MG TAB PO SCH (08:45)
[2017-05-15] MEDS: DULoxetine HCL 60 MG CAPSULE.DR PO SCH (08:45)
[2017-05-15] MEDS ORDERED: ASPIRIN 325 MG TAB PO SCH (09:00)
--- NOTE | 2017-05-15 12:37 | ECHOF ---
Referral Reason:TIA MEASUREMENTS -------- HEIGHT: 170.2 cm WEIGHT: 55.8 kg BP: 113/69 IVSd: 1.3 cm (0.6 - 1.1) LVIDd: 4.3 cm (3.9 - 5.3) LVPWd: 1.2 cm (0.6 - 1.1) IVSs: 1.6 cm LVIDs: 3.4 cm LVPWs: 1.1 cm LA Diam: 3.8 cm (2.7 - 3.8) LAESV Index (A-L): 51.18 ml/m Ao Diam: 3.5 cm (2.0 - 3.7) AV Cusp: 2.6 cm (1.5 - 2.6) LA Diam: 4.3 cm (2.7 - 3.8) MV E Jabier: 0.95 m/s MV DecT: 218 ms MV A Jabier: 0.62 m/s MV E/A Ratio: 1.53 AR PHT: 367 ms RAP: 5.00 mmHg RVSP: 35.07 mmHg FINDINGS -------- Sinus rhythm. This was a technically good study. The left ventricular size is normal. There is mild concentric left ventricular hypertrophy. Overa ll left ventricular systolic function is normal with, an EF between 55 - 60 %. The right ventricle is normal in size. LA is severely dilated >40 ml/m2 The right atrial size is normal. There is mild aortic regurgitation. Mild mitral regurgitation is present. Mild tricuspid regurgitation present. There is no evidence of pulmonary hypertension. The right v entricular systolic pressure, as measured by Doppler, is 35.07mmHg. Trace/mild (physiologic) pulmonic regurgitation. The aortic root size is normal. There is no pericardial effusion. CONCLUSIONS -------- 1. The left ventricular size is normal. 2. There is mild concentric left ventricular hypertrophy. 3. Overall left ventricular systolic function is normal with, an EF between 55 - 60 %. 4. LA is severely dilated >40 ml/m2 5. There is mild aortic regurgitation. 6. Mild mitral regurgitation is present. 7. Mild tricuspid regurgitation present. 8. There is no evidence of pulmonary hypertension. 9. The right ventricular systolic pressure, as measured by Doppler, is 35.07mmHg. 10. Trace/mild (physiologic) pulmonic regurgitation. 11. The aortic root size is normal. 12. There is no pericardial effusion. FREIGHT ADJUSTER: Hortencia Chan RDCS
[2017-05-15 13:39] LABS: Appearance,Urine Cloudy (Clear); Bilirubin,Urine Negative (Negative); Glucose,Urine (UA) Negative (Negative); Ketones,Urine Trace (Negative); Leukocyte Esterase,Urine Moderate (Negative); Mucus,Urine Occasional /hpf; Nitrite,Urine Negative (Negative); Particle Count 2452; Protein,Urine Trace (Negative); RBC,Urine 110 /hpf (0-5); Specific Gravity,Urine 1.017 (1.001-1.035); Sperm,Urine Rare /hpf; Squamous Epithelial Cell,Urine 1 /hpf (0-4); UA Billing (MACRO vs. MICRO) MICRO; Urobilinogen,Urine <2.0 mg/dL (<2.0); WBC,Urine 20 /hpf (0-5)
[2017-05-15] MEDS: SODIUM CHLORIDE 0.9% 1,000 ML IV SCH (14:25)
[2017-05-15] MEDS ORDERED: RX INFO: IV CONTRAST WAS GIVEN 1 EACH MISC MISCELLANE PRN (15:34)
[2017-05-15] MEDS: cefTRIAXone IN SWFI 1,000 MG/10 ML SYRINGE IVP SCH (16:13)
--- NOTE | 2017-05-15 18:22 | PN ---
PROGRESS NOTE DATE OF SERVICE: 05/15/2017 ATTENDING NOTE: Patient was seen and examined by me. I discussed with my nurse practitioner, Ms. Malhotra. This is a patient from a shelter, admitted with what was initially felt to be a TIA with facial asymmetry. The patient's caregiver is present. The patient states her speech is also affected and is sometimes having difficulty finding words. This is still persistent. Patient has some numbness in the face. Speech Therapy has been consulted. EXAMINATION: Temperature 97.7, pulse 70, blood pressure 122/65, pulse ox 97% on room air. Speech is slightly slow. INVESTIGATIONS: White count 6.3. Potassium 4.3. Additionally, the patient is complaining of some difficulty urine and suprapubic discomfort and patient's UA was sent off, which has come back showing positive with leuko esterase. ASSESSMENT: 1. Acute stroke. 2. Acute urinary tract infection with cystitis. PLAN: Will start the patient on IV ceftriaxone. Will do a CT angio of the brain and neck. Care was discussed with the caregiver at the bedside. The patient is to continue with aspirin and Lipitor. Follow. MMODL / IJN: [id number] /
[2017-05-15] MEDS: ATORVASTATIN 40 MG TAB PO SCH (20:16)
[2017-05-15] MEDS: ASPIRIN 81 MG PO SCH (20:16)
[2017-05-15] MEDS: ISOSORBIDE MONONITRATE ER 30 MG TAB.ER.24H PO SCH (20:17)
[2017-05-15] MEDS: DIVALPROEX 250 MG TABLET.DR PO SCH (20:17)
[2017-05-15] MEDS: KETOCONAZOLE 2% SHAMPOO 1 APPLIC/ML TOPICAL SCH (20:18)
--- NOTE | 2017-05-15 20:47 | P.PN ---
Progress Note - Text Progress Note Date: 05/15/17 DATE OF SERVICE: 05/15/2017 PRESENTING COMPLAINT: Slurred speech facial droop HISTORY OF PRESENT ILLNESS: 71-year-old male developed mental delay presented to the emergency department with right facial droop and slurred speech. Patient lives in a care home has developmental delay. Caregivers were alerted to the change in the patient brought him in and was admitted for the same. INTERVAL HISTORY: 05/15/2017: Patient seen in follow-up today, sitting up appears comfortable, however says he doesn't feel right. Caregiver from care home is at the bedside and is able to fill in details. Patient states he has continued numbness to his nose is doesn't feel right and the fact that he can't speak more clearly isn't him. Also having burning with urination urine culture and UA sent. Tolerating his diet eating about 50-75% of his meal requires transfer assistance, last BM 05/15. REVIEW OF SYSTEMS: Done for constitutional ,cardiovascular, GI, pulmonary with relevant findings as above. CURRENT MEDICATIONS Aspirin, Lipitor, BuSpar, Rocephin, Plavix, Depakote, Cymbalta, Lovenox, Lasix, Robitussin, Apresoline, Imdur, Zestril, Toprol-XL, Flomax. PHYSICAL EXAM VITAL SIGNS: Temperature 96.2, pulse 67, respiratory rate 18, blood pressure 120/66, oxygen saturation 97% on room air. GENERAL APPEARANCE: Lying in bed, not in distress. EYES: Pupils equal. Conjunctiva normal. NECK: JVD not raised. Mass not palpable. RESPIRATORY: Respiratory effort normal. Lungs clear to auscultation. CARDIOVASCULAR: First and second sounds normal. No edema. ABDOMEN: Soft. Liver and spleen not palpable. No tenderness. No mass palpable. PSYCHIATRY: Alert and oriented x3. Mood and affect normal. NEUROLOGICAL: Mild right facial droop and numbness in the face Power and sensation grossly intact INVESTIGATIONS: No new labs Echocardiogram: Sinus rhythm, mild mitral, aortic and tricuspid regurgitation ASSESSMENT: -Acute stroke -Acute urinary tract infection with cystitis -Essential hypertension -Benign prostatic hypertrophy -Chronic persistent atrial fibrillation, rate controlled not on any anticoagulation at this time, currently in sinus rhythm. -Medical debility, patient uses walker. -Medical asthenia. -Depression not otherwise specified. PLAN: Start the patient on ceftriaxone for urinary tract infection. CT angios the brain and neck pending. Await additional recommendations from neurology. Continue current medication and treatment plan. Plan of care discussed with caregiver and patient at the bedside. We will follow closely. 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 Pink
[2017-05-16] MEDS: hydrALAZINE HCL 50 MG TAB PO SCH ×3 (08:14→21:14)
[2017-05-16] MEDS: busPIRone HCl 10 MG TAB PO SCH ×2 (08:14→19:51)
[2017-05-16] MEDS: METOPROLOL SUCCINATE (ER) 50 MG TAB.ER.24H PO SCH (08:14)
[2017-05-16] MEDS: DULoxetine HCL 60 MG CAPSULE.DR PO SCH (08:14)
[2017-05-16] MEDS: FUROSEMIDE 20 MG TAB PO SCH (08:14)
[2017-05-16] MEDS: ENOXAPARIN 40 MG/0.4 ML SYRINGE SQ SCH (08:15)
[2017-05-16] MEDS: TAMSULOSIN 0.4 MG CAP.ER.24H PO SCH ×3 (08:15→21:14)
[2017-05-16] MEDS: LISINOPRIL 20 MG TAB PO SCH (08:15)
[2017-05-16] MEDS: CLOPIDOGREL 75 MG TAB PO SCH (08:15)
[2017-05-16] MEDS: cefTRIAXone IN SWFI 1,000 MG/10 ML SYRINGE IVP SCH (08:19)
[2017-05-16] MEDS: SODIUM CHLORIDE 0.9% 1,000 ML IV SCH (11:53)
--- NOTE | 2017-05-16 12:05 | CT ---
EXAMINATION TYPE: CT angio head neck DATE OF EXAM: 05/15/2017 HISTORY: Acute stroke. COMPARISON: Ultrasound Doppler duplex 05/14/2017, CT brain 05/14/2017 CT DLP: 227.5 mGycm. Automated Exposure Control for Dose Reduction was Utilized. TECHNIQUE: CTA scan of the neck and [place] of [place] is performed without and with IV Contrast, zane ent injected with 65 mL of Omnipaque 350, axial images are obtained, coronal and sagittal reformatted images are reviewed. Three-D reconstructed images are created on an independent workstation and revi ewed. FINDINGS: Carotid/Vascular Structures: The transverse aorta, innominate artery, left and right common carotid a rteries, left and right subclavian arteries are patent. The vertebral arteries are patent and codomin ant. Internal and external carotid arteries are patent, no evident filling defect to suggest dissecti on, no hemodynamic significant stenosis evident. Vascular calcifications are mild. Ascending aorta is dilated. Descending aorta also ectatic. [place] of [place] shows no evident aneurysm. No vascular malformation. Internal carotid arteries, vert ebrobasilar system are patent. No filling defect to suggest embolus or dissection. Other: Degenerative disc disease, multilevel foraminal encroachment present within the cervical spine . Sinus disease noted incidentally. Patient is edentulous. Previously described brain changes are not ed incidentally. IMPRESSION: Mild atheromatous changes. No abnormality evident to account for patient's symptoms.
[2017-05-16] MEDS ORDERED: ACETAMINOPHEN TAB 325 MG TAB PO PRN (17:16)
--- NOTE | 2017-05-16 17:45 | P.PN ---
Progress Note - Text Progress Note Date: 05/16/17 DATE OF SERVICE: 05/16/2017 PRESENTING COMPLAINT: Slurred speech facial droop HISTORY OF PRESENT ILLNESS: 71-year-old male developed mental delay presented to the emergency department with right facial droop and slurred speech. Patient lives in a skilled nursing has developmental delay. Caregivers were alerted to the change in the patient brought him in and was admitted for the same. INTERVAL HISTORY: 05/16/2017: Patient sitting up on the edge of the bed eating his lunch states he feels somewhat better continues to have suprapubic pain, patient developed urinary retention yesterday was straight cathed 3 separate occasions [place] catheter placed. Patient urine blood-tinged, remains on antibiotic therapy, tolerating his diet, requires transfer assistance. 05/15/2017: Patient seen in follow-up today, sitting up appears comfortable, however says he doesn't feel right. Caregiver from skilled nursing is at the bedside and is able to fill in details. Patient states he has continued numbness to his nose is doesn't feel right and the fact that he can't speak more clearly isn't him. Also having burning with urination urine culture and UA sent. Tolerating his diet eating about 50-75% of his meal requires transfer assistance, last BM 05/15. REVIEW OF SYSTEMS: Done for constitutional ,cardiovascular, GI, pulmonary with relevant findings as above. CURRENT MEDICATIONS Acetaminophen Aspirin, Lipitor, BuSpar, Rocephin, Plavix, Depakote, Cymbalta, Lovenox, Lasix, Robitussin, Apresoline, Imdur, Zestril, Toprol-XL, Flomax. PHYSICAL EXAM VITAL SIGNS: Temperature 97.6, pulse 77, respiratory rate 18, blood pressure 170/83, oxygen saturation 96% on room air GENERAL APPEARANCE: Sitting on the edge of the bed, not in distress. EYES: Pupils equal. Conjunctiva normal. NECK: JVD not raised. Mass not palpable. RESPIRATORY: Respiratory effort normal. Lungs diminished to auscultation. CARDIOVASCULAR: First and second sounds normal. No edema. ABDOMEN: Soft. Liver and spleen not palpable. No tenderness. No mass palpable. PSYCHIATRY: Alert and oriented x3. Mood and affect normal. NEUROLOGICAL: Mild right facial droop and numbness in the face Power and sensation grossly intact INVESTIGATIONS: No new labs ASSESSMENT: -Acute stroke -Acute urinary tract infection with cystitis -Urinary retention likely due to BPH -Essential hypertension -Benign prostatic hypertrophy -Chronic persistent atrial fibrillation, rate controlled not on any anticoagulation at this time, currently in sinus rhythm. -Medical debility, patient uses walker. -Medical asthenia. -Depression not otherwise specified. PLAN: Continue ceftriaxone for urinary tract infection. Patient developed urinary retention yesterday was straight cathed 3 times and [place] catheter was subsequently placed. Flomax added to patient's regimen. CTA of the brain and neck negative for any abnormality to account for the patient's symptoms of stroke. Await additional input from neurology. Continue current medication and treatment plan. Plan of care discussed with caregiver and patient at the bedside. We will follow closely. [employer] T[employer]NER AND FORMER statement: Patient was seen and examined by nurse practitioner Carla Malhotra and all elements of the case discussed with attending Dr. Pink
[2017-05-16] MEDS: ISOSORBIDE MONONITRATE ER 30 MG TAB.ER.24H PO SCH (19:51)
[2017-05-16] MEDS: ASPIRIN 81 MG PO SCH (19:51)
[2017-05-16] MEDS: DIVALPROEX 250 MG TABLET.DR PO SCH (19:51)
[2017-05-16] MEDS: ATORVASTATIN 40 MG TAB PO SCH (19:51)
[2017-05-16] MEDS: KETOCONAZOLE 2% SHAMPOO 1 APPLIC/ML TOPICAL SCH (21:14)
--- NOTE | 2017-05-16 22:47 | PN ---
PROGRESS NOTE DATE OF SERVICE: 05/16/2017 ATTENDING NOTE: The patient was seen and examined be. I discussed with my nurse practitioner, Ms. Malhotra. This is a patient admitted with acute stroke affecting his speech and facial droop. Speech has actually improved. In the meantime, patient also developed some acute renal failure from acute UTI for which patient is on IV antibiotics. Appetite is getting better. EXAMINATION: Afebrile, pulse 59, blood pressure 162/80. LUNGS: Clear. ABDOMEN: Suprapubic tenderness has decreased. ASSESSMENT: 1. Acute stroke, possibly in the speech area of the internal capsule, likely ischemic in a right-handed patient. 2. Acute urinary tract infection with cystitis with urine cultures pending. PLAN: Continue patient on aspirin and IV ceftriaxone. The patient will continue to get better. Will discontinue patient's [place] catheter in the morning. The patient's Flomax will be changed to 0.8 mg q.h.s. MMNICKOL / GONZALON: [id number] /
[2017-05-17 08:03] LABS: Basophils # (A) 0.1 k/uL (0-0.2); Basophils % (A) 1 %; CH 30.9; CHCM 32.6; Eosinophils # (A) 0.4 k/uL (0-0.7); Eosinophils % (A) 4 %; HCT 45.4 % (39.0-53.0); HDW 2.36; HGB 15.1 gm/dL (13.0-17.5); Luc # (Auto) 0.27; Luc % (Auto) 3; Lymphocytes # (A) 1.8 k/uL (1.0-4.8); Lymphocytes % (A) 17 %; MCH 31.6 pg (25.0-35.0); MCHC 33.2 g/dL (31.0-37.0); MCV 95.3 fL (80.0-100.0); Mean Platelet Volume 7.6; Monocytes # (A) 0.8 k/uL (0-1.0); Monocytes % (A) 8 %; Neutrophils # (A) 7.4 k/uL (1.3-7.7); Neutrophils % (A) 69 %; RBC 4.76 m/uL (4.30-5.90); WBC 10.7 k/uL (3.8-10.6); WBC (Perox) 10.26
[2017-05-17] MEDS: busPIRone HCl 10 MG TAB PO SCH ×2 (08:13→20:29)
[2017-05-17] MEDS: hydrALAZINE HCL 50 MG TAB PO SCH ×3 (08:13→21:32)
[2017-05-17] MEDS: DULoxetine HCL 60 MG CAPSULE.DR PO SCH (08:13)
[2017-05-17] MEDS: FUROSEMIDE 20 MG TAB PO SCH (08:13)
[2017-05-17] MEDS: CLOPIDOGREL 75 MG TAB PO SCH (08:13)
[2017-05-17] MEDS: ENOXAPARIN 40 MG/0.4 ML SYRINGE SQ SCH (08:13)
[2017-05-17] MEDS: LISINOPRIL 20 MG TAB PO SCH (08:14)
[2017-05-17] MEDS: METOPROLOL SUCCINATE (ER) 50 MG TAB.ER.24H PO SCH (08:14)
[2017-05-17 08:21] LABS: Anion Gap 13 mmol/L; Blood Urea Nitrogen 15 mg/dL (9-20); Calcium 9.4 mg/dL (8.4-10.2); Carbon Dioxide 25 mmol/L (22-30); Chloride 101 mmol/L (98-107); Glucose 98 mg/dL (74-99); Non-African American GFR(MDRD) >60 (>60 ml/min/1.73 sqM); Potassium 4.1 mmol/L (3.5-5.1); Sodium 139 mmol/L (137-145)
[2017-05-17] MEDS: cefTRIAXone IN SWFI 1,000 MG/10 ML SYRINGE IVP SCH (08:36)
[2017-05-17] MEDS: SODIUM CHLORIDE 0.9% 1,000 ML IV SCH (10:58)
[2017-05-17] MEDS: TAMSULOSIN 0.4 MG CAP.ER.24H PO SCH (16:21)
--- NOTE | 2017-05-17 18:54 | P.PN ---
Progress Note - Text Progress Note Date: 05/17/17 DATE OF SERVICE: 05/17/2017 PRESENTING COMPLAINT: Slurred speech facial droop HISTORY OF PRESENT ILLNESS: 71-year-old male developed mental delay presented to the emergency department with right facial droop and slurred speech. Patient lives in a correction has developmental delay. Caregivers were alerted to the change in the patient brought him in and was admitted for the same. INTERVAL HISTORY: 05/17/2017: Patient lying in bed appears comfortable, no facial droop noted, no complaints of numbness, speech is still somewhat difficult to understand. Mentation and ability to communicate his thoughts appears to be at his baseline. continues to have suprapubic pain Canada removed yesterday, urinating about 100 mL each time he urinates, and it is frequently. Urine is bloody. Continues to have urinary retention, straight cathed one time. Tolerating his diet, up with assistance, last BM 05/15/2017. 05/16/2017: Patient sitting up on the edge of the bed eating his lunch states he feels somewhat better continues to have suprapubic pain, patient developed urinary retention yesterday was straight cathed 3 separate occasions [place] catheter placed. Patient urine blood-tinged, remains on antibiotic therapy, tolerating his diet, requires transfer assistance. 05/15/2017: Patient seen in follow-up today, sitting up appears comfortable, however says he doesn't feel right. Caregiver from correction is at the bedside and is able to fill in details. Patient states he has continued numbness to his nose is doesn't feel right and the fact that he can't speak more clearly isn't him. Also having burning with urination urine culture and UA sent. Tolerating his diet eating about 50-75% of his meal requires transfer assistance, last BM 05/15. REVIEW OF SYSTEMS: Done for constitutional ,cardiovascular, GI, pulmonary with relevant findings as above. CURRENT MEDICATIONS Acetaminophen Aspirin, Lipitor, BuSpar, Rocephin, Plavix, Depakote, Cymbalta, Lovenox, Lasix, Robitussin, Apresoline, Imdur, Zestril, Toprol-XL, Flomax. PHYSICAL EXAM VITAL SIGNS: Temperature 97.4, pulse 72, respiratory rate 17, blood pressure 142/86, oxygen saturation 98% on room air. GENERAL APPEARANCE: Lying in bed, not in distress. EYES: Pupils equal. Conjunctiva normal. NECK: JVD not raised. Mass not palpable. RESPIRATORY: Respiratory effort normal. Lungs diminished to auscultation. CARDIOVASCULAR: First and second sounds normal. No edema. ABDOMEN: Soft. Liver and spleen not palpable. No tenderness. No mass palpable. PSYCHIATRY: Alert and oriented x3. Mood and affect normal. NEUROLOGICAL: Mild right facial droop and numbness in the face Power and sensation grossly intact GENITOURINARY: Bloody drainage noted from patient's penis, urine continues to be pink tinged INVESTIGATIONS: White blood cell count 10.7, BMP unremarkable Urine culture pending ASSESSMENT: -Acute stroke with some speech dysarthria, tongue deviation and right-sided facial droop, improving -Acute urinary tract infection with cystitis, slow to respond -Urinary retention likely due to BPH -Hematuria secondary to straight catheterization -Essential hypertension -Benign prostatic hypertrophy -Chronic persistent atrial fibrillation, rate controlled not on any anticoagulation at this time, currently in sinus rhythm. -Medical debility, patient uses walker. -Medical asthenia. -Depression not otherwise specified. -Leukocytosis likely due to UTI PLAN: Continue serial neuro checks, ceftriaxone for urinary tract infection. Patient continues to have urinary retention requiring straight catheterization, [place] replaced, urology consulted, plan of care discussed at the bedside we will continue to monitor closely. HIDE PASTER statement: Patient was seen and examined by nurse practitioner Carla Malhotra and all elements of the case discussed with attending Dr. Pink
--- NOTE | 2017-05-17 19:12 | PN ---
PROGRESS NOTE DATE OF SERVICE: 06/16/17. The patient is seen and examined by me. I discussed with my nurse practitioner, Ms. Mariemandieelaina. Patient admitted with stroke, also UTI. [place] catheter was taken out this morning. Patient had some hematuria. Otherwise, urinary symptoms are much improved. EXAM: Afebrile, pulse 72, respirations 17, blood pressure 142/86, pulse ox 98% on room air. ABDOMEN: Soft, nontender. Mild facial numbness as before. LABORATORY DATA: White count 10.7, potassium 4.1. Urine culture came back negative. ASSESSMENT: 1. Acute stroke, possibly in the speech area and the internal capsule, likely ischemic in a right-handed patient. 2. Acute urinary tract infection with cystitis with urine culture being negative. 3. Benign prostatic hypertrophy. 4. Traumatic hematuria with benign prostatic hypertrophy causing urinary retention. PLAN: We will see how the patient has done without the trial of DC [place] catheter. The patient's Flomax was changed to 0.8 q.h.s. yesterday. If there are more urine symptoms we will have to consult Urology for the same. In the meantime, continue with antibiotics. MMODL / IJN: [id number] /
[2017-05-17] MEDS: DIVALPROEX 250 MG TABLET.DR PO SCH (20:29)
[2017-05-17] MEDS: KETOCONAZOLE 2% SHAMPOO 1 APPLIC/ML TOPICAL SCH (20:29)
[2017-05-17] MEDS: ISOSORBIDE MONONITRATE ER 30 MG TAB.ER.24H PO SCH (20:29)
[2017-05-17] MEDS: ASPIRIN 81 MG PO SCH (20:29)
[2017-05-17] MEDS: ATORVASTATIN 40 MG TAB PO SCH (20:29)
[2017-05-18] MEDS: busPIRone HCl 10 MG TAB PO SCH (07:26)
[2017-05-18] MEDS: LISINOPRIL 20 MG TAB PO SCH (07:26)
[2017-05-18] MEDS: METOPROLOL SUCCINATE (ER) 50 MG TAB.ER.24H PO SCH (07:26)
[2017-05-18] MEDS: DULoxetine HCL 60 MG CAPSULE.DR PO SCH (07:26)
[2017-05-18] MEDS: CLOPIDOGREL 75 MG TAB PO SCH (07:26)
[2017-05-18] MEDS: FUROSEMIDE 20 MG TAB PO SCH (07:26)
[2017-05-18] MEDS: hydrALAZINE HCL 50 MG TAB PO SCH (07:26)
[2017-05-18] MEDS: ENOXAPARIN 40 MG/0.4 ML SYRINGE SQ SCH (07:27)
[2017-05-18 07:30] VITALS: BP 125/72; PULSE 65; RESP 16; TEMP 96.8
--- NOTE | 2017-05-18 07:38 | P.GSCN ---
History of Present Illness Consult date: 05/18/17 Reason for Consult: Retention and hematuria. History of present illness: The patient is a 71-year-old gentleman from a [facility] was brought to the hospital because of facial droop and slurring of speech.. That he has had a transient ischemic attack. The symptoms seem to be improving. The patient has gone into urinary retention during this period of time. He was on intermittent catheterization but now has an indwelling catheter. 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 He apparently was on tamsulosin twice a day prehospitalization. I'm not aware as to whether he has seen a urologist in the past. He had inflamed looking urine at the culture was negative. He is little blood in the [place] catheter. Denies problems prior to coming into the hospital with urination however how reliable that is, isn't certain. Review of Systems ROS unobtainable: due to mental status Past Medical History Past Medical History: Atrial Fibrillation, Heart Failure, Dementia, Hyperlipidemia, Hypertension Additional Past Medical History / Comment(s): Recent UTI-completed ABX, recently been "choking alittle", mild mental retardation, vertigo at times, SOB at times. History of Any Multi-Drug Resistant Organisms: None Reported Past Surgical History: Unable to Obtain Additional Past Surgical History / Comment(s): Bilateral cataracts removed with lens implants, teeth extracted. Past Anesthesia/Blood Transfusion Reactions: No Reported Reaction Smoking Status: Former smoker - Past Family History Father History Unknown: Yes Family Medical History: Unable to Obtain Mother History Unknown: Yes Family Medical History: Blood Disorder Additional Family Medical History / Comment(s): Mother had Factor 8 disease and was a bleeder. Medications and Allergies Home Medications Medication Instructions Recorded Confirmed Type Simvastatin [Zocor] 40 mg PO HS 06/21/15 05/14/17 History Tamsulosin [Flomax] 0.4 mg PO BID 06/21/15 05/14/17 History busPIRone HCL [Buspar] 30 mg PO BID 06/21/15 05/14/17 History Aspirin EC [Ecotrin Low Dose] 81 mg PO HS 07/02/16 05/14/17 History Benazepril HCl 20 mg PO BID 07/02/16 05/14/17 History DULoxetine HCL [Cymbalta] 60 mg PO DAILY 07/02/16 05/14/17 History Econazole Nitrate 1 applic TOPICAL HS 07/02/16 05/14/17 History Isosorbide Mononitrate ER [Imdur] 30 mg PO HS 07/02/16 05/14/17 History Divalproex [Depakote] 250 mg PO HS 04/10/17 05/14/17 History Furosemide [Lasix] 20 mg PO DAILY 04/10/17 05/14/17 History Metoprolol Succinate [Toprol XL] 50 mg PO DAILY 04/10/17 05/14/17 History guaiFENesin-DM 100-10MG/5ML 10 ml PO Q4H PRN 04/10/17 05/14/17 History [Robitussin DM] hydrALAZINE HCL [Apresoline] 50 mg PO TID 04/10/17 05/14/17 History Loratadine [Claritin] 10 mg PO HS 05/14/17 05/14/17 History hydrALAZINE HCL [Apresoline] 25 mg PO BID PRN 05/14/17 05/14/17 History Allergies Allergy/AdvReac Type Severity Reaction Status Date / Time No Known Allergies Allergy Verified 05/14/17 09:46 Surgical - Exam Vital Signs Temp Pulse Resp BP Pulse Ox 97.5 F L 83 20 158/86 97 05/14/17 09:16 05/14/17 09:16 05/14/17 09:16 05/14/17 09:16 05/14/17 09:16 - General well developed, well nourished, no distress - ENT no hearing loss - Neck trachea midline - Respiratory normal expansion, normal respiratory effort - Cardiovascular Rhythm: regular - Abdomen Abdomen: soft, non tender - Genitourinary The penis is circumcised and normal. There is an indwelling catheter. The testes are both small. The scrotum was unremarkable. The prostate is 30 g soft and benign. - Rectum Rectum: normal sphincter tone - Integumentary no rash, no growths - Neurologic normal coordination, normal sensation - Musculoskeletal normal posture - Psychiatric oriented to person, oriented to place, speech is normal Results - Labs 05/17/17 07:34 05/17/17 07:34 Abnormal Lab Results - Last 24 Hours (Table) 05/17/17 Range/Units 07:34 WBC 10.7 H (3.8-10.6) k/uL Diabetes panel 05/17/17 Range/Units 07:34 Sodium 139 (137-145) mmol/L Potassium 4.1 (3.5-5.1) mmol/L Chloride 101 (98-107) mmol/L Carbon Dioxide 25 (22-30) mmol/L BUN 15 (9-20) mg/dL Creatinine 0.92 (0.66-1.25) mg/dL Glucose 98 (74-99) mg/dL Calcium 9.4 (8.4-10.2) mg/dL Calcium panel 05/17/17 Range/Units 07:34 Calcium 9.4 (8.4-10.2) mg/dL Pituitary panel 05/17/17 Range/Units 07:34 Sodium 139 (137-145) mmol/L Potassium 4.1 (3.5-5.1) mmol/L Chloride 101 (98-107) mmol/L Carbon Dioxide 25 (22-30) mmol/L BUN 15 (9-20) mg/dL Creatinine 0.92 (0.66-1.25) mg/dL Glucose 98 (74-99) mg/dL Calcium 9.4 (8.4-10.2) mg/dL Adrenal panel 05/17/17 Range/Units 07:34 Sodium 139 (137-145) mmol/L Potassium 4.1 (3.5-5.1) mmol/L Chloride 101 (98-107) mmol/L Carbon Dioxide 25 (22-30) mmol/L BUN 15 (9-20) mg/dL Creatinine 0.92 (0.66-1.25) mg/dL Glucose 98 (74-99) mg/dL Calcium 9.4 (8.4-10.2) mg/dL Assessment and Plan Assessment: Impression: Acute urine retention post transient ischemic attack. Chronic urinary outlet obstruction by history. Recommendations: The patient has failed intermittent catheterization now has an indwelling catheter. It is not uncommon for patients post stroke or TIA to go into urinary retention. Frequently there is bladder overdistention which leads to lower recuperation a spontaneous voiding. he apparently has a chronic outlet obstruction being on tamsulosin twice a day. I would leave the catheter in for 5 days before another voiding trial is undertaken. if He goes home he should go back with an indwelling catheter and follow-up in our office for that voiding trial.
[2017-05-18] MEDS: cefTRIAXone IN SWFI 1,000 MG/10 ML SYRINGE IVP SCH (08:02)
[2017-05-18] MEDS: SODIUM CHLORIDE 0.9% 1,000 ML IV SCH (09:51)
[2017-05-18 11:03] LABS: Basophils % (A) 0 %; CH 32.2; CHCM 34.7; Eosinophils # (A) 0.3 k/uL (0-0.7); Eosinophils % (A) 4 %; HCT 41.1 % (39.0-53.0); HDW 2.52; HGB 13.6 gm/dL (13.0-17.5); Luc # (Auto) 0.19; Luc % (Auto) 2; Lymphocytes # (A) 1.3 k/uL (1.0-4.8); Lymphocytes % (A) 16 %; MCH 30.9 pg (25.0-35.0); MCHC 33.1 g/dL (31.0-37.0); MCV 93.3 fL (80.0-100.0); Mean Platelet Volume 7.9; Monocytes # (A) 0.6 k/uL (0-1.0); Monocytes % (A) 7 %; Neutrophils # (A) 5.6 k/uL (1.3-7.7); Neutrophils % (A) 70 %; RDW 12.4 % (11.5-15.5); WBC 8.1 k/uL (3.8-10.6); WBC (Perox) 7.97
[2017-05-18 11:39] VITALS: BMI 19.3
--- NOTE | 2017-05-19 07:40 | DS ---
DISCHARGE SUMMARY DATE OF ADMISSION: 05/14/2017 DATE OF DISCHARGE: 05/18/2017 FINAL DIAGNOSES: 1. Acute stroke, possibly in the speech area and the internal capsule, likely ischemic in a right-handed patient. 2. Acute urinary tract infection with cystitis with urine cultures being negative. 3. Benign prostatic hypertrophy causing urine outflow obstruction. 4. Traumatic hematuria due to [place] catheter. 5. Essential hypertension. 6. Premature ventricular contractions. 7. Gait dysfunction, uses a walker at baseline. 8. Chronic mental retardation with significant cognitive impairment. HOSPITAL COURSE: This patient presented with acute stroke affecting his speech and some sensation on his face. A 2-D echocardiogram showed preserved LV function, no thrombus was reported. CT angio of the brain did not grape picker anything. Carotid Doppler did not show any significant stenosis. The patient's speech did improve. The patient's LDL came back at 31. The patient also developed UTI with cystitis. Cultures were negative. The patient developed urinary obstruction was given a trial of [place], was still retaining urine. Hence, [place] was placed. Seen by Urology. Patient will go home with a [place]. The patient's Flomax was changed from twice a day to once a day 0.8 mg q.h.s. On exam, abdomen is soft, nontender. The patient is able to communicate. DISCHARGE MEDICATIONS: 1. Zocor 40 mg q.h.s. 2. BuSpar 30 mg p.o. b.i.d. 3. Aspirin 81 mg p.o. q.h.s. 4. Benazepril 20 mg p.o. b.i.d. 5. Cymbalta 60 mg p.o. daily. 6. Econazole topical q.h.s. 7. Imdur ER 30 mg q.h.s. 8. Depakote 250 mg q.h.s. 9. Lasix 20 mg p.o. daily. 10.Toprol XL 50 mg p.o. daily. 11.Robitussin DM p.r.n. 12.Hydralazine 50 mg p.o. t.i.d. 13.Claritin 10 mg q.h.s. 14.Hydralazine 25 mg b.i.d. p.r.n. 15.Plavix 75 mg p.o. daily. 16.Bactrim DS 1 tab q.12, fourteen tablets. 17.Flomax 0.8 mg q.h.s. Follow up with Dr. Cason in 1 week. Follow up with Visiting Physician, Dr. Wlof, in 3 days; Dr. White in 1 week. The patient will be discharged home with a [place] catheter. Discharge planning more than 35 minutes. BERNARD / ALICJA: [id number] /
--- NOTE | 2017-06-21 16:47 | PN ---
PROGRESS NOTE ADDENDUM: Patient's progress note dictated on 05/17/17 at time at 1758 pm date transcribed 05/17/2017 at 1903 pm, the correct date of service should read May 17, 2017. MMODL / IJN: [id number] /
== END 2017-05-18 14:26 | disposition home health service (06) | DRG 64 ==
LOC: EC 09:05 → 6SEL 11:50 → 4MS4W 05-15 11:27
PROVIDERS: ADMIT Hospitalist; ATTEND Hospitalist
DX: I63.9 Cerebral infarction, unspecified (principal); Q04.0 Congenital malformations of corpus callosum; N17.9 Acute kidney failure, unspecified; F03.90 Unspecified dementia, unspecified severity, without behavioral disturbance, psychotic disturbance, mood disturbance, and anxiety; I48.1 Persistent atrial fibrillation; N13.8 Other obstructive and reflux uropathy; I50.9 Heart failure, unspecified; I11.0 Hypertensive heart disease with heart failure; E78.5 Hyperlipidemia, unspecified; F32.9 Major depressive disorder, single episode, unspecified; F43.10 Post-traumatic stress disorder, unspecified; F70 Mild intellectual disabilities; I48.2 Chronic atrial fibrillation; I49.3 Ventricular premature depolarization; N30.91 Cystitis, unspecified with hematuria; N40.1 Benign prostatic hyperplasia with lower urinary tract symptoms; R33.8 Other retention of urine; Z79.82 Long term (current) use of aspirin; Z79.899 Other long term (current) drug therapy; Z83.2 Family history of diseases of the blood and blood-forming organs and certain disorders involving the immune mechanism; Z87.891 Personal history of nicotine dependence; Z96.1 Presence of intraocular lens
CPT/HCPCS: 36415; 70450; 70496; 70498; 71020; 80048; 80053; 80061; 81001; 81003; 82550; 82553; 83735; 84484; 85025; 85610; 85730; 87086; 93005; 93306; 93880; 94760; 96360; 96361; 99285

== ENCOUNTER 2018-02-06 15:57 | Inpatient (IN) | payer MEDICARE, OTHER ==
[2018-02-06] MEDS ORDERED: SODIUM CHLORIDE 0.9% 1,000 ML IV STA (16:10)
[2018-02-06] MEDS ORDERED: SODIUM CHLORIDE 0.9% 500 ML IV STA (16:10)
[2018-02-06] MEDS ORDERED: DIAZEPAM 5 MG/ML 2 ML INJ IVP STA (16:20)
[2018-02-06 16:58] LABS: Basophils % (A) 0 %; Eosinophils # (A) 0.1 k/uL (0-0.7); Eosinophils % (A) 1 %; HGB 14.2 gm/dL (13.0-17.5); Lymphocytes # (A) 0.8 k/uL (1.0-4.8); Lymphocytes % (A) 5 %; MCH 30.3 pg (25.0-35.0); MCHC 32.9 g/dL (31.0-37.0); Monocytes # (A) 0.7 k/uL (0-1.0); Monocytes % (A) 5 %; Neutrophils # (A) 13.2 k/uL (1.3-7.7); Neutrophils % (A) 89 %; Platelet Count 210 k/uL (150-450); RBC 4.68 m/uL (4.30-5.90); WBC 14.9 k/uL (3.8-10.6)
[2018-02-06 17:06] LABS: Appearance,Urine Clear (Clear); Bilirubin,Urine Negative (Negative); Blood,Urine Negative (Negative); Color,Urine Light Yellow; Glucose,Urine (UA) 2+ (Negative); Ketones,Urine Negative (Negative); Leukocyte Esterase,Urine Negative (Negative); Nitrite,Urine Negative (Negative); Protein,Urine Negative (Negative); Specific Gravity,Urine 1.008 (1.001-1.035); Urobilinogen,Urine <2.0 mg/dL (<2.0)
[2018-02-06 17:10] LABS: Partial Thromboplastin Time 23.6 sec (22.0-30.0); Prothrombin Time 10.2 sec (9.0-12.0)
--- NOTE | 2018-02-06 17:11 | ED ---
General Adult HPI - General Chief complaint: Fall Stated complaint: Fall Time Seen by Provider: 02/06/18 16:01 Source: patient, EMS, RN notes reviewed, old records reviewed Mode of arrival: EMS Limitations: no limitations - History of Present Illness Initial comments: This is a 72-year-old male the ER for evaluation. Patient's a for evaluation regarding fall. Patient unknown cause of fall. Complaining of left-sided pain shaking not feeling well. Feels terrible. No syncope. No headache no chest pain or shortness of breath no abdominal pain - Related Data Home Medications Medication Instructions Recorded Confirmed Simvastatin [Zocor] 40 mg PO HS@06/21/15 02/06/18 busPIRone HCL [Buspar] 30 mg PO BID@06/21/15 02/06/18 Aspirin EC [Ecotrin Low Dose] 81 mg PO HS@07/02/16 02/06/18 DULoxetine HCL [Cymbalta] 60 mg PO BID@,07/02/16 02/06/18 Econazole Nitrate 1 applic TOPICAL DAILY 07/02/16 02/06/18 Isosorbide Mononitrate ER [Imdur] 30 mg PO HS@07/02/16 02/06/18 Furosemide [Lasix] 20 mg PO DAILY@04/10/17 02/06/18 Metoprolol Succinate [Toprol XL] 50 mg PO DAILY@04/10/17 02/06/18 hydrALAZINE HCL [Apresoline] 50 mg PO TID@,04/10/17 02/06/18 Loratadine [Claritin] 10 mg PO HS@05/14/17 02/06/18 Benazepril HCl 40 mg PO DAILY@02/06/18 02/06/18 Clopidogrel [Plavix] 75 mg PO HS@02/06/18 02/06/18 Divalproex ER [Depakote ER] 250 mg PO HS@02/06/18 02/06/18 Divalproex Sodium [Depakote] 125 mg PO DAILY@02/06/18 02/06/18 Divalproex Sodium [Depakote] 250 mg PO HS@02/06/18 02/06/18 Finasteride [Proscar] 5 mg PO DAILY@08 02/06/18 02/06/18 QUEtiapine FUMARATE [SEROquel] 25 - 50 mg PO HS@20 02/06/18 02/06/18 Tamsulosin [Flomax] 0.4 mg PO BID@08,02/06/18 02/06/18 hydrOXYzine HCL [Atarax] 25 mg PO HS PRN 02/06/18 02/06/18 Allergies Allergy/AdvReac Type Severity Reaction Status Date / Time No Known Allergies Allergy Verified 02/06/18 16:13 Review of Systems ROS Statement: Those systems with pertinent positive or pertinent negative responses have been documented in the HPI. ROS Other: All systems not noted in ROS Statement are negative. Past Medical History Past Medical History: Atrial Fibrillation, Heart Failure, Dementia, Hyperlipidemia, Hypertension Additional Past Medical History / Comment(s): Recent UTI-completed ABX, recently been "choking alittle", mild mental retardation, vertigo at times, SOB at times. History of Any Multi-Drug Resistant Organisms: None Reported Past Surgical History: Unable to Obtain Additional Past Surgical History / Comment(s): Bilateral cataracts removed with lens implants, teeth extracted. Past Anesthesia/Blood Transfusion Reactions: No Reported Reaction Past Psychological History: Anxiety, Depression, PTSD Smoking Status: Former smoker Past Alcohol Use History: None Reported Past Drug Use History: None Reported - Past Family History Father History Unknown: Yes Family Medical History: Unable to Obtain Mother History Unknown: Yes Family Medical History: Blood Disorder Additional Family Medical History / Comment(s): Mother had Factor 8 disease and was a bleeder. General Exam - General Exam Comments Initial Comments: Left hip, leg is significantly shortened and rotated externally Limitations: no limitations General appearance: alert, in no apparent distress Head exam: Present: atraumatic, normocephalic, normal inspection Eye exam: Present: normal appearance, PERRL, EOMI. Absent: scleral icterus, conjunctival injection, periorbital swelling ENT exam: Present: normal exam, mucous membranes moist Neck exam: Present: normal inspection. Absent: tenderness, meningismus, lymphadenopathy Respiratory exam: Present: normal lung sounds bilaterally. Absent: respiratory distress, wheezes, rales, rhonchi, stridor Cardiovascular Exam: Present: regular rate, normal rhythm, normal heart sounds. Absent: systolic murmur, diastolic murmur, rubs, gallop, clicks GI/Abdominal exam: Present: soft, normal bowel sounds. Absent: distended, tenderness, guarding, rebound, rigid Extremities exam: Present: normal inspection, full ROM, normal capillary refill. Absent: tenderness, pedal edema, joint swelling, calf tenderness Back exam: Present: normal inspection Neurological exam: Present: alert, oriented X3, CN II-XII intact Psychiatric exam: Present: normal affect, normal mood Skin exam: Present: warm, dry, intact, normal color. Absent: rash Course Vital Signs 02/06/18 16:01 Temperature 98.3 F Pulse Rate 86 Respiratory 20 Rate Blood Pressure 171/88 O2 Sat by Pulse 99 Oximetry - Reevaluation(s) Reevaluation #1: 02/06/18 18:45 At this time patient having much improved pain control EKG Findings - EKG Comments: EKG Findings:: EKG shows sinus at a rate of 84, DE 180, QRS 80, QTC 545 Medical Decision Making - Medical Decision Making 72 male the ER significant left hip pain positive left hip fracture. Patient will be admitted for orthopedic care and evaluation - Lab Data Result diagrams: 02/06/18 16:35 02/06/18 16:35 Lab Results 02/06/18 02/06/18 02/06/18 Range/Units 16:35 16:35 16:35 WBC 14.9 H (3.8-10.6) k/uL RBC 4.68 (4.30-5.90) m/uL Hgb 14.2 (13.0-17.5) gm/dL Hct 43.0 (39.0-53.0) % MCV 92.0 (80.0-100.0) fL MCH 30.3 (25.0-35.0) pg MCHC 32.9 (31.0-37.0) g/dL RDW 13.0 (11.5-15.5) % Plt Count 210 (150-450) k/uL Neutrophils % 89 % Lymphocytes % 5 % Monocytes % 5 % Eosinophils % 1 % Basophils % 0 % Neutrophils # 13.2 H (1.3-7.7) k/uL Lymphocytes # 0.8 L (1.0-4.8) k/uL Monocytes # 0.7 (0-1.0) k/uL Eosinophils # 0.1 (0-0.7) k/uL Basophils # 0.0 (0-0.2) k/uL PT (9.0-12.0) sec INR (<1.2) APTT (22.0-30.0) sec Sodium 137 (137-145) mmol/L Potassium 4.1 (3.5-5.1) mmol/L Chloride 102 (98-107) mmol/L Carbon Dioxide 23 (22-30) mmol/L Anion Gap 12 mmol/L BUN 19 (9-20) mg/dL Creatinine 1.10 (0.66-1.25) mg/dL Est GFR (CKD-EPI)AfAm 76 (>60 ml/min/1.73 sqM) Est GFR (CKD-EPI)NonAf 66 (>60 ml/min/1.73 sqM) Glucose 162 H (74-99) mg/dL Calcium 9.3 (8.4-10.2) mg/dL Phosphorus 3.6 (2.5-4.5) mg/dL Magnesium 2.0 (1.6-2.3) mg/dL Total Bilirubin 0.4 (0.2-1.3) mg/dL AST 21 (17-59) U/L ALT 29 (21-72) U/L Alkaline Phosphatase 72 (38-126) U/L Total Creatine Kinase 82 (55-170) U/L CK-MB (CK-2) 1.1 (0.0-2.4) ng/mL CK-MB (CK-2) Rel Index 1.3 Troponin I <0.012 (0.000-0.034) ng/mL Total Protein 7.4 (6.3-8.2) g/dL Albumin 4.4 (3.5-5.0) g/dL Urine Color Urine Appearance (Clear) Urine pH (5.0-8.0) Ur Specific [place] (1.001-1.035) Urine Protein (Negative) Urine Glucose (UA) (Negative) Urine Ketones (Negative) Urine Blood (Negative) Urine Nitrite (Negative) Urine Bilirubin (Negative) Urine Urobilinogen (<2.0) mg/dL Ur Leukocyte Esterase (Negative) 02/06/18 02/06/18 Range/Units 16:35 16:35 WBC (3.8-10.6) k/uL RBC (4.30-5.90) m/uL Hgb (13.0-17.5) gm/dL Hct (39.0-53.0) % MCV (80.0-100.0) fL MCH (25.0-35.0) pg MCHC (31.0-37.0) g/dL RDW (11.5-15.5) % Plt Count (150-450) k/uL Neutrophils % % Lymphocytes % % Monocytes % % Eosinophils % % Basophils % % Neutrophils # (1.3-7.7) k/uL Lymphocytes # (1.0-4.8) k/uL Monocytes # (0-1.0) k/uL Eosinophils # (0-0.7) k/uL Basophils # (0-0.2) k/uL PT 10.2 (9.0-12.0) sec INR 1.0 (<1.2) APTT 23.6 (22.0-30.0) sec Sodium (137-145) mmol/L Potassium (3.5-5.1) mmol/L Chloride (98-107) mmol/L Carbon Dioxide (22-30) mmol/L Anion Gap mmol/L BUN (9-20) mg/dL Creatinine (0.66-1.25) mg/dL Est GFR (CKD-EPI)AfAm (>60 ml/min/1.73 sqM) Est GFR (CKD-EPI)NonAf (>60 ml/min/1.73 sqM) Glucose (74-99) mg/dL Calcium (8.4-10.2) mg/dL Phosphorus (2.5-4.5) mg/dL Magnesium (1.6-2.3) mg/dL Total Bilirubin (0.2-1.3) mg/dL AST (17-59) U/L ALT (21-72) U/L Alkaline Phosphatase (38-126) U/L Total Creatine Kinase (55-170) U/L CK-MB (CK-2) (0.0-2.4) ng/mL CK-MB (CK-2) Rel Index Troponin I (0.000-0.034) ng/mL Total Protein (6.3-8.2) g/dL Albumin (3.5-5.0) g/dL Urine Color Light Yellow Urine Appearance Clear (Clear) Urine pH 7.0 (5.0-8.0) Ur Specific [place] 1.008 (1.001-1.035) Urine Protein Negative (Negative) Urine Glucose (UA) 2+ H (Negative) Urine Ketones Negative (Negative) Urine Blood Negative (Negative) Urine Nitrite Negative (Negative) Urine Bilirubin Negative (Negative) Urine Urobilinogen <2.0 (<2.0) mg/dL Ur Leukocyte Esterase Negative (Negative) - Radiology Data Radiology results: report reviewed (X-ray left hip positive for fracture), image reviewed Disposition Clinical Impression: Fall, Closed left hip fracture Disposition: ADMITTED IP TO THIS [facility] Condition: Fair Is patient prescribed a controlled substance at d/c from ED?: No Referrals: Nonstaff,Physician [Primary Care Provider] - 1-2 days
[2018-02-06 17:23] LABS: Albumin 4.4 g/dL (3.5-5.0); Calcium 9.3 mg/dL (8.4-10.2); Creatine Kinase 82 U/L (55-170); Phosphorus 3.6 mg/dL (2.5-4.5); Potassium 4.1 mmol/L (3.5-5.1); Total Bilirubin 0.4 mg/dL (0.2-1.3); Total Protein 7.4 g/dL (6.3-8.2)
[2018-02-06 17:35] LABS: Creatine Kinase MB 1.1 ng/mL (0.0-2.4); Troponin I <0.012 ng/mL (0.000-0.034)
--- NOTE | 2018-02-06 18:27 | XR ---
EXAMINATION TYPE: XR Hip Complete LT DATE OF EXAM: 02/06/2018 COMPARISON: None HISTORY: Pain TECHNIQUE: 2 view left hip FINDINGS: There is an intertrochanteric fracture. There is avulsion of the lesser trochanter. Femoral head articulates with the acetabulum. Additional fractures are not identified. IMPRESSION: 1. Intertrochanteric fracture left hip
--- NOTE | 2018-02-06 18:30 | XR ---
EXAMINATION TYPE: XR chest 1V DATE OF EXAM: 02/06/2018 COMPARISON: 05/14/2017 INDICATION: Weakness TECHNIQUE: Single frontal view of the chest is obtained. FINDINGS: The heart size is normal. Superior mediastinum appears somewhat full. This can be related to patient positioning and rotational exam. The pulmonary vasculature is prominent. Mild diffuse increased lung markings are present. IMPRESSION: 1. Correlate for volume overload. 2. Positioning is suboptimal. Follow-up chest study is recommended to reevaluate the mediastinum.
[2018-02-06] MEDS ORDERED: MORPHINE SULFATE 4 MG/ML SYRINGE IVP STA (18:39)
[2018-02-06] MEDS ORDERED: hydrOXYzine HCL 25 MG TAB PO PRN (21:24)
[2018-02-06] MEDS ORDERED: LORazepam 2 MG/ML INJ IV PRN (21:26)
[2018-02-06 21:41] LABS: Glucose,Whole Blood 143 mg/dL (75-99)
[2018-02-06] MEDS: busPIRone HCl 10 MG TAB PO SCH (22:36)
[2018-02-06] MEDS: QUEtiapine 25 MG TAB PO SCH (22:36)
[2018-02-06] MEDS: DIVALPROEX SPRINKLE 125 MG CAP.SPRINK PO SCH (22:37)
[2018-02-06] MEDS: DULoxetine HCL 60 MG CAPSULE.DR PO SCH (22:39)
[2018-02-06] MEDS: ISOSORBIDE MONONITRATE ER 30 MG TAB.ER.24H PO SCH (22:39)
[2018-02-06] MEDS: hydrALAZINE HCL 50 MG TAB PO SCH (22:39)
[2018-02-07 00:26] LABS: T4, Free (Free Thyroxine) 1.04 ng/dL (0.78-2.19)
[2018-02-07] MEDS: MORPHINE SULFATE 4 MG/ML SYRINGE IVP PRN ×3 (03:47→21:57)
[2018-02-07] MEDS: SODIUM CHLORIDE 0.9% 1,000 ML IV SCH ×2 (04:10→21:39)
[2018-02-07] MEDS ORDERED: DULoxetine HCL 60 MG CAPSULE.DR PO SCH (08:00)
[2018-02-07] MEDS ORDERED: busPIRone HCl 10 MG TAB PO SCH (08:00)
[2018-02-07] MEDS ORDERED: hydrALAZINE HCL 50 MG TAB PO SCH (08:00)
[2018-02-07] MEDS: hydrALAZINE HCL 50 MG TAB PO SCH ×3 (09:19→21:42)
[2018-02-07] MEDS: METOPROLOL SUCCINATE (ER) 50 MG TAB.ER.24H PO SCH (09:19)
[2018-02-07] MEDS: LISINOPRIL 20 MG TAB PO SCH (09:19)
[2018-02-07] MEDS: FUROSEMIDE 20 MG TAB PO SCH (09:20)
[2018-02-07] MEDS: TAMSULOSIN 0.4 MG CAP.ER.24H PO SCH ×2 (09:20→21:56)
[2018-02-07] MEDS: DULoxetine HCL 60 MG CAPSULE.DR PO SCH ×2 (09:21→21:41)
[2018-02-07] MEDS: ENOXAPARIN 40 MG/0.4 ML SYRINGE SQ SCH (10:03)
[2018-02-07] MEDS: DIVALPROEX SPRINKLE 125 MG CAP.SPRINK PO SCH ×2 (11:35→21:56)
[2018-02-07] MEDS: FINASTERIDE 5 MG TAB PO SCH (11:35)
[2018-02-07] MEDS: busPIRone HCl 10 MG TAB PO SCH ×2 (11:35→21:57)
--- NOTE | 2018-02-07 12:01 | CONS ---
CONSULTATION Mr. Alas is a 72-year-old gentleman who is seen for preop cardiac evaluation. This patient's history obtained from the chart. Patient is rather unreliable historian and unable to give any detailed history. The patient came with a history of fall and sustained a fracture of the hip the patient has a history of hypertension and possible history of chest pain. He has been taking Imdur. The patient's physical activities are limited. There is no definite history suggestive congestive cardiac failure. Recently patient was admitted with symptoms suggestive of TIA in May. At that time, CT angiogram of the carotid artery was done, which did not show any significant abnormality. There is no history of diabetes. There is no definite prior history of myocardial infarction. According to the EMR, the patient has been told by one of the cardiologists that if any kind of cardiac intervention is done he stands a very low chance of any survival. The patient had an echocardiogram done in June of 2017 which revealed a normal left ventricular systolic function. HOME MEDICATIONS: Include Zocor, BuSpar 30 mg daily. Cymbalta 60 mg b.i.d., Lasix 20 mg daily. Imdur 30 mg daily. Toprol-XL 50 mg daily. Hydralazine 50 mg t.i.d. The patient is also on benazepril 40 mg daily. Plavix 75 mg daily. Depakote, Lasix 20 mg daily, Seroquel 25 mg daily and Atarax. PAST MEDICAL HISTORY: Includes a question of history of possible atrial fibrillation. We do not have any documentation. Dementia, hyperlipidemia, hypertension and posttraumatic stress disorder. Possible history of TIA and the mild mental retardation. Past surgical history includes bilateral cataract surgery. PHYSICAL EXAMINATION: At present reveals a 72-year-old gentleman who is not in any respiratory distress. Lying comfortably in the bed. Heart rate is 86 per minute, oxygen saturation is 99%. HEENT examination is negative. Neck is supple. There is no significant increase in jugular venous pressure. Both the carotid pulses are felt. There is no bruit. Chest is symmetrical. Heart the PMI is not felt. First and second heart sounds are normal. Lungs are clinically clear to auscultation and percussion. Abdomen is negative. Extremities: There is no evidence of any leg edema. EKG shows significant baseline artifact but appears to be sinus rhythm without any acute ischemic changes. Electrolytes and creatinine are normal. Patient's hemoglobin is 14.2, chest x-ray does not show any significant failure. FINAL IMPRESSION: This patient is admitted with left hip fracture. Clinically patient at present is comfortable. There is no history suggestive of unstable angina or evidence of congestive cardiac failure. There is a questionable history of TIA and atrial fibrillation in the past. The patient has been taking aspirin and Plavix that we will put on hold and whenever it is okay with Dr. Cheung one can proceed with the surgery in next 2-3 days. I will recommend to get an echo and Doppler study. We will continue his blood pressure medications at present. MMODL / IJN: [id number] /
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
[2018-02-07] MEDS: CLOTRIMAZOLE 1% CREAM 15 GM TUBE TOPICAL SCH (19:22)
[2018-02-07] MEDS ORDERED: DIVALPROEX SPRINKLE 125 MG CAP.SPRINK PO SCH (20:00)
[2018-02-07] MEDS ORDERED: ISOSORBIDE MONONITRATE ER 30 MG TAB.ER.24H PO SCH (20:00)
[2018-02-07] MEDS ORDERED: QUEtiapine 25 MG TAB PO SCH (20:00)
[2018-02-07] MEDS ORDERED: DIVALPROEX ER 250 MG TAB.ER.24H PO SCH (20:00)
[2018-02-07] MEDS: ASPIRIN 81 MG PO SCH (21:41)
[2018-02-07] MEDS: ATORVASTATIN 20 MG TAB PO SCH (21:41)
[2018-02-07] MEDS: ISOSORBIDE MONONITRATE ER 30 MG TAB.ER.24H PO SCH (21:42)
[2018-02-07] MEDS: LORATADINE 10 MG TAB PO SCH (21:56)
[2018-02-07] MEDS: QUEtiapine 25 MG TAB PO SCH (21:56)
--- NOTE | 2018-02-07 22:34 | PN ---
PROGRESS NOTE DATE OF SERVICE: 02/07/2018. SUBJECTIVE: A 72-year-old white male who has been cleared by Cardiology for surgery. Remains on Lovenox for blood thinner, Lipitor for cholesterol, Imdur for coronary artery disease as well as Toprol-XL, beta mauro. He has been cleared for surgery. He has a hip fracture and will need surgery. No chest pain, shortness of breath. OBJECTIVE: Temp 98, pulse 85 to 95, respiratory 15 to 20, blood pressure is 140s to 150s over 70s to 80s, O2 is 94% on room air. CARDIOVASCULAR: S1, S2. LUNGS: Clear. GI: Soft. PSYCH: Giving appropriate answers. MUSCULOSKELETAL: Difficulty with movement of the hip. ASSESSMENT: Hip fracture, coronary artery disease, hypertension, dyslipidemia, possible rheumatoid arthritis, dementia. PLAN: Continue current treatment. He is cleared for surgery per Cardiology. Monitor electrolytes and hemoglobin. TSH is a little bit high and he may need a little bit of boost to his thyroid medication. MMODL / IJN: [id number] /
[2018-02-08] MEDS: MORPHINE SULFATE 4 MG/ML SYRINGE IVP PRN ×2 (03:37→22:06)
[2018-02-08] MEDS: busPIRone HCl 10 MG TAB PO SCH ×2 (08:20→20:17)
[2018-02-08] MEDS: DULoxetine HCL 60 MG CAPSULE.DR PO SCH ×2 (08:21→20:18)
[2018-02-08] MEDS: DIVALPROEX SPRINKLE 125 MG CAP.SPRINK PO SCH ×2 (08:21→20:21)
[2018-02-08] MEDS: hydrALAZINE HCL 50 MG TAB PO SCH ×3 (08:22→20:18)
[2018-02-08] MEDS: FINASTERIDE 5 MG TAB PO SCH (08:22)
[2018-02-08] MEDS: FUROSEMIDE 20 MG TAB PO SCH (08:22)
[2018-02-08] MEDS: LISINOPRIL 20 MG TAB PO SCH (08:23)
[2018-02-08] MEDS: METOPROLOL SUCCINATE (ER) 50 MG TAB.ER.24H PO SCH (08:23)
[2018-02-08] MEDS: TAMSULOSIN 0.4 MG CAP.ER.24H PO SCH ×2 (08:24→20:18)
[2018-02-08] MEDS: CLOTRIMAZOLE 1% CREAM 15 GM TUBE TOPICAL SCH (10:21)
[2018-02-08] MEDS: ENOXAPARIN 40 MG/0.4 ML SYRINGE SQ SCH (10:21)
--- NOTE | 2018-02-08 11:19 | P.PN ---
Subjective Mr. Alas is seen and examined sitting up in bed in no acute distress. Past medical history significant for hypertension, dyslipidemia, SVT and non- rheumatic aortic regurgitation. He follows with Dr. Naqvi in the office. He fell out of bed and sustained a fracture of the left hip. He is currently on plavix secondary to CVA/TIA in the past. Orthopedics is planning for closed reduction and IM screw fixation. He recently underwent an echocardiogram in the office 2017 which revealed preserved LV systolic function with EF 50-55%, severely dilated left atrium, mild concentric left ventricular hypertrophy, mild mitral regurgitation, moderate to severe aortic regurgitation with a mean gradient of 8 mmHg, mild TR and mild pulmonic regurgitation with an RVSP of 41 mmHg. Blood pressure 132/81 heart rate 86 afebrile maintaining oxygen saturation on room air. He denies symptoms of chest pain, shortness of breath, dizziness or palpitations. Objective - Vital Signs Vital signs: Vital Signs Temp 99.3 F 02/08/18 00:15 Pulse 86 02/08/18 00:15 Resp 18 02/08/18 00:15 BP 132/81 02/08/18 00:15 Pulse Ox 93 L 02/08/18 00:15 Intake & Output 02/07/18 02/08/18 02/08/18 18:59 06:59 18:59 Intake Total 700 Output Total 1300 250 Balance -1300 450 Intake: Intake, IV Titration 400 Amount Sodium Chloride 0.9% 1, 400 000 ml @ 50 mls/hr IV . [facility] Rx#:[id number] Oral 300 Output: Urine 1300 250 Other: Voiding Method Indwelling Catheter Indwelling Catheter - Exam GENERAL: Well-appearing, well-nourished and in no acute distress. NECK: Supple without JVD or thyromegaly. LUNGS: Breath sounds clear to auscultation bilaterally. Respiration equal and unlabored. No wheezes, rales or rhonchi. HEART: Regular rate and rhythm with murmur at the base, no rubs or gallops. S1 and S2 heard. EXTREMITIES: Normal range of motion, no edema. No clubbing or cyanosis. Peripheral pulses intact. Ecchymosis noted to the left lower extremity. - Labs CBC & Chem 7: 02/06/18 16:35 02/06/18 16:35 Labs: Microbiology - Last 24 Hours (Table) 02/06/18 16:35 Urine Culture - Final Urine,Voided Assessment and Plan Assessment: ASSESSMENT Left hip fracture status post fall from bed Aortic valve insufficiency with moderate aortic regurgitation Hypertension Dyslipidemia PLAN We will not repeat an echocardiogram since he just had one in the office, report has been reviewed and I will have it placed in the patients chart. Continue current medical regimen. Stable from a cardiac perspective. We will continue to follow him in the post-operative phase. Nurse Practitioner note has been reviewed, I agree with a documented findings and plan of care. Patient was seen and examined.
[2018-02-08] MEDS: ASPIRIN 81 MG PO SCH (20:17)
[2018-02-08] MEDS: ATORVASTATIN 20 MG TAB PO SCH (20:17)
[2018-02-08] MEDS: ISOSORBIDE MONONITRATE ER 30 MG TAB.ER.24H PO SCH (20:18)
[2018-02-08] MEDS: LORATADINE 10 MG TAB PO SCH (20:18)
[2018-02-08] MEDS: QUEtiapine 25 MG TAB PO SCH (22:06)
[2018-02-08] MEDS: SODIUM CHLORIDE 0.9% 1,000 ML IV SCH (22:11)
--- NOTE | 2018-02-08 22:23 | PN ---
PROGRESS NOTE SUBJECTIVE: 72-year-old white male with left hip fracture having surgery in the morning. Cardiology is cleared for surgery. He is having no chest pain, shortness of breath. Vital signs stable. Afebrile. Cardiovascular S1, S2. Lungs clear. GI soft. ASSESSMENT: 1. Left hip fracture. 2. Hypertension. 3. Coronary artery disease. Continue current treatment. Surgery in the morning. MMODL / IJN: [id number] /
[2018-02-09] MEDS: MORPHINE SULFATE 4 MG/ML SYRINGE IVP PRN ×3 (05:00→23:19)
[2018-02-09] MEDS: ENOXAPARIN 40 MG/0.4 ML SYRINGE SQ SCH (08:31)
[2018-02-09] MEDS: TAMSULOSIN 0.4 MG CAP.ER.24H PO SCH ×2 (08:36→21:59)
[2018-02-09] MEDS: hydrALAZINE HCL 50 MG TAB PO SCH ×4 (08:36→22:09)
[2018-02-09] MEDS: METOPROLOL SUCCINATE (ER) 50 MG TAB.ER.24H PO SCH (08:36)
[2018-02-09] MEDS: FUROSEMIDE 20 MG TAB PO SCH (08:36)
[2018-02-09] MEDS: DULoxetine HCL 60 MG CAPSULE.DR PO SCH ×2 (08:36→21:57)
[2018-02-09] MEDS: busPIRone HCl 10 MG TAB PO SCH ×2 (08:36→21:57)
[2018-02-09] MEDS: DIVALPROEX SPRINKLE 125 MG CAP.SPRINK PO SCH ×2 (08:37→21:58)
[2018-02-09] MEDS: LISINOPRIL 20 MG TAB PO SCH (08:39)
[2018-02-09] MEDS: CLOTRIMAZOLE 1% CREAM 15 GM TUBE TOPICAL SCH (09:48)
[2018-02-09] MEDS: FINASTERIDE 5 MG TAB PO SCH (09:48)
--- NOTE | 2018-02-09 12:53 | ECHOF ---
Referral Reason:pre op eval MEASUREMENTS -------- HEIGHT: 157.5 cm WEIGHT: 59.0 kg BP: 132/81 RVIDd: 2.9 cm (< 3.3) IVSd: 0.9 cm (0.6 - 1.1) LVIDd: 4.8 cm (3.9 - 5.3) LVPWd: 0.9 cm (0.6 - 1.1) IVSs: 1.2 cm LVIDs: 3.4 cm LVPWs: 1.2 cm LAESV Index (A-L): 41.89 ml/m Ao Diam: 3.3 cm (2.0 - 3.7) AV Cusp: 1.6 cm (1.5 - 2.6) LA Diam: 3.2 cm (2.7 - 3.8) MV E Jabier: 1.13 m/s MV DecT: 195 ms MV A Jabier: 0.48 m/s MV E/A Ratio: 2.34 AR PHT: 460 ms RAP: 5.00 mmHg RVSP: 36.60 mmHg FINDINGS -------- Sinus rhythm. This was a technically adequate study. The left ventricular size is normal. Left ventricular wall thickness is normal. Overall left vent ricular systolic function is normal with, an EF between 55 - 60 %. The right ventricle is mildly enlarged. LA is severely dilated >40 ml/m2 RA appears enlarged. Aortic valve is trileaflet and is mildly thickened. There is moderate aortic regurgitation. There is no evidence of aortic stenosis. The mitral valve leaflets are mildly thickened. Ztjk-ey-xueutenr mitral regurgitation is present. Mild tricuspid regurgitation present. There is borderline pulmonary hypertension. The right ventr icular systolic pressure, as measured by Doppler, is 36.60mmHg. The pulmonic valve was not well visualized. The aortic root is borderline dilated, up to 3.5 cm. IVC Not well visulized. There is no pericardial effusion. CONCLUSIONS -------- 1. Sinus rhythm. 2. This was a technically adequate study. 3. The left ventricular size is normal. 4. Left ventricular wall thickness is normal. 5. Overall left ventricular systolic function is normal with, an EF between 55 - 60 %. 6. The right ventricle is mildly enlarged. 7. LA is severely dilated >40 ml/m2 8. RA appears enlarged. 9. Aortic valve is trileaflet and is mildly thickened. 10. There is moderate aortic regurgitation. 11. The mitral valve leaflets are mildly thickened. 12. Achj-vm-gsglrlwa mitral regurgitation is present. 13. Mild tricuspid regurgitation present. 14. There is borderline pulmonary hypertension. 15. The right ventricular systolic pressure, as measured by Doppler, is 36.60mmHg. 16. The pulmonic valve was not well visualized. 17. The aortic root is borderline dilated, up to 3.5 cm. 18. IVC Not well visulized. 19. There is no pericardial effusion. MANAGER CASE MANAGEMENT: Jerry Scales RDCS
[2018-02-09] MEDS: SODIUM CHLORIDE 0.9% 1,000 ML IV SCH (17:32)
[2018-02-09] MEDS ORDERED: ONDANSETRON 4 MG/2 ML VIAL IVP PRN (18:04)
[2018-02-09] MEDS ORDERED: MAGNESIUM HYDROXIDE 2,400 MG/10 ML CUP PO PRN (18:04)
[2018-02-09] MEDS ORDERED: DIAZEPAM 5 MG TAB PO PRN (18:04)
[2018-02-09] MEDS ORDERED: NALOXONE 0.4 MG/ML 1 ML VIAL IV PRN (18:04)
[2018-02-09] MEDS ORDERED: HYDROmorphone 1 MG/ML 1 ML SYRINGE IVP PRN ×3 (18:04)
[2018-02-09] MEDS ORDERED: SODIUM CHLORIDE 0.9% 1,000 ML IV SCH (18:15)
[2018-02-09] MEDS ORDERED: fentaNYL (PF) 50 MCG/ML 2 ML AMP ONE (18:24)
[2018-02-09] MEDS ORDERED: ceFAZolin 1,000 MG VIAL IVPB ONE (18:24)
[2018-02-09] MEDS ORDERED: LACTATED RINGERS 1,000 ML IV ONE (18:24)
[2018-02-09] MEDS ORDERED: PROPOFOL 10 MG/ML 20 ML VIAL IV ONE (18:24)
[2018-02-09] MEDS ORDERED: ceFAZolin 1,000 MG in SODIUM CHLORIDE 0.9% 1,000 ML IRRIGATION ONE (18:52)
--- NOTE | 2018-02-09 19:27 | P.OP ---
Date of Procedure: 02/09/18 Preoperative Diagnosis: Four-part intertrochanteric fracture left hip Postoperative Diagnosis: Four-part intertrochanteric fracture left hip Procedure(s) Performed: Close reduction and intramedullary hip screw fixation left hip Implants: [employer] intertan nail 125, 11.5 mm x 18 cm. [employer] Intertan integrated interlocking lag screw, 100 mm lag screw, 95 mm compression screw. [employer] L-P screw, 5.0 mm x 27.5 mm. Anesthesia: spinal Surgeon: Jayy Cheung Physician Assistant Primary Care #1: Fanny Brown Estimated Blood Loss (ml): 50 Pathology: none sent Condition: stable Disposition: PACU Indications for Procedure: This is a 72-year-old gentleman sustained a fall and a 4 part intratrochanteric fracture of the left hip. After medical clearance was obtained discussed the surgical nonsurgical treatment options with him at length as well as his family. Recommended a close reduction and intramedullary hip screw fixation of the left hip, and informed consent was obtained. Operative Findings: The operative findings are consistent with a four-part intertrochanteric fracture left hip Description of Procedure: The patient was seen in the preoperative area, consent was reviewed, and the operative site was marked with a skin marker. The patient was brought to the operating room and placed on the operating room table. Anesthesia was administered by the anesthesia department. 2 g of Ancef were administered intravenously. The patient was placed supine on the fracture table with the fractured extremity in traction boot. His other extremity was placed in a well leg hong and his bony prominences were padded. A universal timeout was then performed which confirmed the patient's name, surgical site, ALLERGIES, and consent. Fracture reduction was performed with traction and adduction maneuver which was confirmed with fluoroscopy. After reduction was performed, the extremity was then prepped and draped in the usual sterile fashion. Utilizing fluoroscopy to identify the tip of the greater trochanter, a 3 cm incision was made just proximal to the greater trochanter. Utilizing a curved awl, the starting hole was created at the tip of the greater trochanter and centralized in the AP plane. These locations were confirmed by fluoroscopy. Guidewire was then inserted down the medullary canal. Sequentially reaming of the femur was performed to 13 mm distally and 17 mm proximally. After reaming, appropriate size nail was inserted over the guidewire. The nail was inserted to the appropriate depth and the guidewire was removed. The lag screw targeting device was placed in the jig and a small skin incision was made and the targeting guide was placed down to bone. Utilizing the distally threaded guidewire, the guidewire was placed in the appropriate position in the femoral head, both anterior, posterior and mediolateral. Next, the drill for the second screw was then placed through the guide and drilled to the appropriate depth. The guidewire was measured and the appropriate depth was then reamed. The final size screw was placed to the appropriate depth. Traction was released and the fracture site was compressed with the aid of the second screw. The proximal drill guide was then removed and the distal drill guide was then inserted in the jig. Skin incision was made down to bone and the distal drill guide was then placed. Distal hole was then drilled and measured to the appropriate depth. Distal screw was then placed. The entire jig was then removed and final fluoroscopic x-rays were obtained. The wounds were then irrigated copiously with saline solution. Fascia was closed with 0-Vicryl. Subcutaneous tissues were closed with 2-0 Vicryl and the skin was closed with lucero. Sterile dressings were applied. The patient was transported to the recovery room in stable condition. The assistant reading teacher LIZZIE Calderón was required due the complexity of surgery the need for skilled neurosurgical physician assistant for positioning draping retraction and fracture reduction.
[2018-02-09 20:48] LABS: Basophils % (A) 0 %; Eosinophils # (A) 0.1 k/uL (0-0.7); Eosinophils % (A) 0 %; HCT 32.3 % (39.0-53.0); Lymphocytes # (A) 1.3 k/uL (1.0-4.8); Lymphocytes % (A) 10 %; MCH 31.6 pg (25.0-35.0); MCHC 33.7 g/dL (31.0-37.0); MCV 93.6 fL (80.0-100.0); Mean Platelet Volume 7.2; Monocytes # (A) 1.5 k/uL (0-1.0); Monocytes % (A) 12 %; Neutrophils # (A) 9.8 k/uL (1.3-7.7); Neutrophils % (A) 76 %; Platelet Count 266 k/uL (150-450); RBC 3.45 m/uL (4.30-5.90); WBC 12.9 k/uL (3.8-10.6)
[2018-02-09 20:55] LABS: HGB 10.9 gm/dL (13.0-17.5)
--- NOTE | 2018-02-09 21:26 | XR ---
PROCEDURE: XR Hip Limited LT, one view DATE AND TIME: 02/09/2018 7:54 PM REFERRING PHYSICIAN: Fanny Brown CLINICAL INDICATION: PHH, post op TECHNIQUE: Department protocol. COMPARISON: None FINDINGS: Postoperative views show subcutaneous emphysema and cutaneous lucero, but no unexpected po stoperative findings. The left femoral neck fracture is seen post ORIF, in anatomic positioning and a lignment. IMPRESSION: Postop left hip
[2018-02-09] MEDS: QUEtiapine 25 MG TAB PO SCH (21:57)
[2018-02-09] MEDS: ATORVASTATIN 20 MG TAB PO SCH (21:57)
[2018-02-09] MEDS: LORATADINE 10 MG TAB PO SCH (21:57)
[2018-02-09] MEDS: SENNOSIDES-DOCUSATE SODIUM 1 EACH TAB PO SCH (21:58)
[2018-02-09] MEDS: ISOSORBIDE MONONITRATE ER 30 MG TAB.ER.24H PO SCH (21:58)
[2018-02-09] MEDS: ASPIRIN 81 MG PO SCH (21:58)
[2018-02-09] MEDS: ceFAZolin IN SWFI 2 GM/20 ML SYRINGE IVP SCH (23:19)
[2018-02-10] MEDS ORDERED: SODIUM CHLORIDE 0.9% 500 ML IV ONE (03:24)
[2018-02-10] MEDS: SODIUM CHLORIDE 0.9% 1,000 ML IV SCH ×3 (04:21→12:13)
--- NOTE | 2018-02-10 06:34 | PN ---
PROGRESS NOTE SUBJECTIVE: A 72-year-old white male with left hip fracture. The patient is improved from medical standpoint. Surgery is this afternoon. He has been cleared for Cardiology for surgery. CARDIOVASCULAR: S1,S2. LUNGS: Clear. GI: Soft. Extremities show tender to palpation of the left hip. ASSESSMENT: 1. Preop left hip fracture. 2. History of coronary artery disease. 3. Hypertension. Cleared for surgery. MMODL / IJN: [id number] /
[2018-02-10] MEDS: busPIRone HCl 10 MG TAB PO SCH ×2 (09:57→20:54)
[2018-02-10] MEDS: DIVALPROEX SPRINKLE 125 MG CAP.SPRINK PO SCH ×2 (09:57→20:54)
[2018-02-10] MEDS: TAMSULOSIN 0.4 MG CAP.ER.24H PO SCH ×2 (09:58→20:07)
[2018-02-10] MEDS: METOPROLOL SUCCINATE (ER) 50 MG TAB.ER.24H PO SCH (09:58)
[2018-02-10] MEDS: LISINOPRIL 20 MG TAB PO SCH (09:58)
[2018-02-10] MEDS: FUROSEMIDE 20 MG TAB PO SCH (09:58)
[2018-02-10] MEDS: hydrALAZINE HCL 50 MG TAB PO SCH ×3 (09:58→20:08)
[2018-02-10] MEDS: CLOPIDOGREL 75 MG TAB PO SCH (09:58)
--- NOTE | 2018-02-10 09:58 | XR ---
Limited left hip HISTORY: Hip fracture 3 intraoperative C-arm images document the procedure.
[2018-02-10] MEDS: FINASTERIDE 5 MG TAB PO SCH (09:59)
[2018-02-10] MEDS: DULoxetine HCL 60 MG CAPSULE.DR PO SCH ×2 (09:59→20:07)
[2018-02-10] MEDS: CLOTRIMAZOLE 1% CREAM 15 GM TUBE TOPICAL SCH (09:59)
[2018-02-10] MEDS: ENOXAPARIN 40 MG/0.4 ML SYRINGE SQ SCH (09:59)
[2018-02-10] MEDS: HYDROcodone/APAP 5-325MG 1 EACH TAB PO PRN ×3 (10:10→23:41)
--- NOTE | 2018-02-10 10:19 | FL ---
Fluoroscopy HISTORY: Open reduction internal fixation for hip fracture 1.02 minutes fluoroscopy time supplied to the referring clinician. 3 intraoperative C-arm images doc ument the procedure. See dictated report from orthopedic surgery.
--- NOTE | 2018-02-10 10:20 | P.PN ---
Subjective Progress Note Date: 02/10/18 This is a 72-year-old male who who is status post closed reduction and intramedullary hip screw fixation of left hip. This is postoperative day #1. Patient is seen and evaluated at bedside. Patient states that this pain is well controlled. Patient denies any new symptoms or complaints. Patient denies any fever/chills, numbness, weakness, tingling, abdominal pain, shortness of breath or chest pain. Objective - Vital Signs Vital signs: Vital Signs Temp 98 F 02/10/18 08:14 Pulse 98 02/10/18 08:14 Resp 12 02/10/18 08:14 BP 126/72 02/10/18 09:56 Pulse Ox 98 02/10/18 08:14 Intake & Output 02/09/18 02/10/18 02/10/18 18:59 06:59 18:59 Intake Total 461 1275 Output Total 1325 650 100 Balance -864 625 -100 Intake: IV 301 0 Intake, IV Titration 160 1275 Amount Sodium Chloride 0.9% 1, 100 000 ml @ 100 mls/hr IV . Q10H [facility] Rx#:[id number] Sodium Chloride 0.9% 1, 160 000 ml @ 50 mls/hr IV . Q20H [facility] Rx#:[id number] Sodium Chloride 0.9% 1, 675 000 ml @ 65 mls/hr IV . [id number] [facility] Rx#:[id number] Sodium Chloride 0.9% 500 500 ml @ 999 mls/hr IV .Q31M [facility] Rx#:[id number] Output: Urine 1325 550 100 Uretheral ([place]) 1050 200 100 Estimated Blood Loss 100 Other: Voiding Method Indwelling Catheter Indwelling Catheter - Exam Patient is alert and oriented and lying comfortably in bed in no acute distress. Vital signs are stable. Calf is soft and nontender to palpation. Dressing is clean, dry, and intact. Patient has full foot and ankle motion without pain or difficulty. Neurovascular status and circulatory status are intact. - Labs CBC & Chem 7: 02/09/18 20:32 02/06/18 16:35 Labs: Abnormal Lab Results - Last 24 Hours (Table) 02/09/18 Range/Units 20:32 WBC 12.9 H (3.8-10.6) k/uL RBC 3.45 L (4.30-5.90) m/uL Hgb 10.9 L D (13.0-17.5) gm/dL Hct 32.3 L (39.0-53.0) % Neutrophils # 9.8 H (1.3-7.7) k/uL Monocytes # 1.5 H (0-1.0) k/uL Assessment and Plan (1) Closed left hip fracture Current Visit: Yes Status: Acute Code(s): S72.002A - FRACTURE OF UNSP PART OF NECK OF LEFT FEMUR, INIT SNOMED Code(s): 150393263 (2) Fall Current Visit: Yes Status: Acute Code(s): W19.XXXA - UNSPECIFIED FALL, INITIAL ENCOUNTER SNOMED Code(s): 5924847 Plan: Continue routine postop care. Continue antocoagulation with aspirin and Plavix. 50% weightbearing to the left lower extremity with a walker. Daily dressing changes. Likely discharge to rehab in the next 1-2 days.
[2018-02-10] MEDS: ceFAZolin IN SWFI 2 GM/20 ML SYRINGE IVP SCH (10:25)
--- NOTE | 2018-02-10 12:07 | P.PN ---
Subjective Mr. Alas is seen and examined sitting up in bed in no acute distress. Past medical history significant for hypertension, dyslipidemia, SVT and non- rheumatic aortic regurgitation. He follows with Dr. Naqvi in the office. He fell out of bed and sustained a fracture of the left hip. He is currently on plavix secondary to CVA/TIA in the past. Orthopedics is planning for closed reduction and IM screw fixation. He recently underwent an echocardiogram in the office 2017 which revealed preserved LV systolic function with EF 50-55%, severely dilated left atrium, mild concentric left ventricular hypertrophy, mild mitral regurgitation, moderate to severe aortic regurgitation with a mean gradient of 8 mmHg, mild TR and mild pulmonic regurgitation with an RVSP of 41 mmHg. Blood pressure 132/81 heart rate 86 afebrile maintaining oxygen saturation on room air. He denies symptoms of chest pain, shortness of breath, dizziness or palpitations. 02/10/2018 Mr. Alas is seen and examined sitting up in bed eating breakfast. He underwent closed reduction and IM screw fixation of the left hip yesterday. He denies symptoms of chest pain, shortness of breath, dizziness or palpitations. Blood pressure 126/72 heart rate 98 afebrile maintaining oxygen saturation on room air. He is maintained on aspirin, atorvastatin, Plavix has been resumed, Lasix, hydralazine, Imdur, lisinopril, metoprolol. Objective - Vital Signs Vital signs: Vital Signs Temp 98 F 02/10/18 08:14 Pulse 98 02/10/18 08:14 Resp 12 02/10/18 08:14 BP 126/72 02/10/18 09:56 Pulse Ox 98 02/10/18 08:14 Intake & Output 02/09/18 02/10/18 02/10/18 18:59 06:59 18:59 Intake Total 461 1275 Output Total 1325 650 100 Balance -864 625 -100 Intake: IV 301 0 Intake, IV Titration 160 1275 Amount Sodium Chloride 0.9% 1, 100 000 ml @ 100 mls/hr IV . Q10H [facility] Rx#:[id number] Sodium Chloride 0.9% 1, 160 000 ml @ 50 mls/hr IV . Q20H [facility] Rx#:[id number] Sodium Chloride 0.9% 1, 675 000 ml @ 65 mls/hr IV . [id number] [facility] Rx#:[id number] Sodium Chloride 0.9% 500 500 ml @ 999 mls/hr IV .Q31M [facility] Rx#:[id number] Output: Urine 1325 550 100 Uretheral ([place]) 1050 200 100 Estimated Blood Loss 100 Other: Voiding Method Indwelling Catheter Indwelling Catheter - Exam GENERAL: Well-appearing, well-nourished and in no acute distress. NECK: Supple without JVD or thyromegaly. LUNGS: Breath sounds clear to auscultation bilaterally. Respiration equal and unlabored. No wheezes, rales or rhonchi. HEART: Regular rate and rhythm with murmur at the base, no rubs or gallops. S1 and S2 heard. EXTREMITIES: Normal range of motion, no edema. No clubbing or cyanosis. Peripheral pulses intact. Ecchymosis noted to the left lower extremity. - Labs CBC & Chem 7: 02/09/18 20:32 02/06/18 16:35 Labs: Abnormal Lab Results - Last 24 Hours (Table) 02/09/18 Range/Units 20:32 WBC 12.9 H (3.8-10.6) k/uL RBC 3.45 L (4.30-5.90) m/uL Hgb 10.9 L D (13.0-17.5) gm/dL Hct 32.3 L (39.0-53.0) % Neutrophils # 9.8 H (1.3-7.7) k/uL Monocytes # 1.5 H (0-1.0) k/uL Assessment and Plan Assessment: ASSESSMENT Left hip fracture status post fall from bed Aortic valve insufficiency with moderate aortic regurgitation Hypertension Dyslipidemia PLAN Stable from a cardiac perspective. Continue current medical regimen. Follow-up with Dr. Naqvi in 2-3 weeks. Nurse Practitioner note has been reviewed, I agree with a documented findings and plan of care. Patient was seen and examined.
[2018-02-10] MEDS: ATORVASTATIN 20 MG TAB PO SCH (20:06)
[2018-02-10] MEDS: LORATADINE 10 MG TAB PO SCH (20:06)
[2018-02-10] MEDS: SENNOSIDES-DOCUSATE SODIUM 1 EACH TAB PO SCH (20:06)
[2018-02-10] MEDS: ASPIRIN 81 MG PO SCH (20:07)
[2018-02-10] MEDS: ISOSORBIDE MONONITRATE ER 30 MG TAB.ER.24H PO SCH (20:07)
[2018-02-10] MEDS: QUEtiapine 25 MG TAB PO SCH (20:54)
--- NOTE | 2018-02-10 22:28 | PN ---
PROGRESS NOTE SUBJECTIVE: This is a 72-year-old white male, status post left hip fracture, hypertension, obesity, having no chest pain or shortness of breath. CARDIOVASCULAR: S1, S2. LUNGS: Clear. GI: Soft. MUSCULOSKELETAL: Left hip tenderness to palpation. ASSESSMENT: 1. Left hip fracture. 2. Hypertension. 3. Coronary artery disease. Continue with current treatment. Follow up in the next 24 to 48 hours. PT/OT. Possible rehab center for physical therapy. MMODL / IJN: [id number] /
[2018-02-11] MEDS: SODIUM CHLORIDE 0.9% 1,000 ML IV SCH ×5 (01:29→23:22)
[2018-02-11] MEDS: HYDROcodone/APAP 5-325MG 1 EACH TAB PO PRN ×2 (05:18→19:54)
[2018-02-11 06:51] LABS: Basophils % (A) 0 %; Eosinophils # (A) 0.1 k/uL (0-0.7); Eosinophils % (A) 1 %; HCT 22.4 % (39.0-53.0); Lymphocytes # (A) 1.3 k/uL (1.0-4.8); Lymphocytes % (A) 12 %; MCH 32.1 pg (25.0-35.0); MCHC 33.9 g/dL (31.0-37.0); MCV 94.6 fL (80.0-100.0); Monocytes # (A) 1.4 k/uL (0-1.0); Monocytes % (A) 13 %; Neutrophils # (A) 7.8 k/uL (1.3-7.7); Neutrophils % (A) 72 %; Platelet Count 192 k/uL (150-450); RBC 2.37 m/uL (4.30-5.90); RDW 13.6 % (11.5-15.5); WBC 10.8 k/uL (3.8-10.6)
[2018-02-11 06:52] LABS: HGB 7.6 gm/dL (13.0-17.5)
[2018-02-11] MEDS: TAMSULOSIN 0.4 MG CAP.ER.24H PO SCH ×2 (10:44→19:55)
[2018-02-11] MEDS: hydrALAZINE HCL 50 MG TAB PO SCH ×3 (10:44→19:49)
[2018-02-11] MEDS: DULoxetine HCL 60 MG CAPSULE.DR PO SCH ×2 (10:44→19:55)
[2018-02-11] MEDS: CLOPIDOGREL 75 MG TAB PO SCH (10:44)
[2018-02-11] MEDS: LISINOPRIL 20 MG TAB PO SCH ×2 (10:44→11:37)
[2018-02-11] MEDS: FUROSEMIDE 20 MG TAB PO SCH (10:44)
[2018-02-11] MEDS: FINASTERIDE 5 MG TAB PO SCH (10:44)
[2018-02-11] MEDS: busPIRone HCl 10 MG TAB PO SCH ×2 (10:45→20:00)
[2018-02-11] MEDS: ENOXAPARIN 40 MG/0.4 ML SYRINGE SQ SCH (10:46)
[2018-02-11] MEDS: CLOTRIMAZOLE 1% CREAM 15 GM TUBE TOPICAL SCH (10:46)
[2018-02-11] MEDS: DIVALPROEX SPRINKLE 125 MG CAP.SPRINK PO SCH ×2 (10:46→20:01)
[2018-02-11] MEDS ORDERED: SODIUM FERRIC GLUCONAT-SUCROSE 125 MG in SODIUM CHLORIDE 0.9% 100 ML IVPB ONE (11:00)
[2018-02-11] MEDS: METOPROLOL SUCCINATE (ER) 50 MG TAB.ER.24H PO SCH (11:37)
[2018-02-11] MEDS: FERROUS SULFATE 325 MG TAB PO SCH (11:39)
--- NOTE | 2018-02-11 13:15 | P.DS ---
Providers Date of admission: 02/06/18 18:37 Expected date of discharge: 02/11/18 Attending physician: Jayy Cheung Consults: 02/06/18 18:37 Consult Physician Routine Consulting Provider: Maciel Medeiros Consult Reason/Comments: med Do you want consulting provider notified?: Yes 02/06/18 21:27 Consult Physician Routine Consulting Provider: Luis Cee Consult Reason/Comments: pre op clearance Do you want consulting provider notified?: Yes, Notify in am Primary care physician: Physician Nonstaff - Discharge Diagnosis(es) (1) Closed left hip fracture Current Visit: Yes Status: Acute (2) Fall Current Visit: Yes Status: Acute Hospital Course: This is a 72-year-old male who sustained a left hip fracture after a fall. The patient presents for evaluation. After discussion and consideration the patient 's family elect to proceed with closed reduction and intramedullary hip screw fixation left hip. The patient is seen preoperatively by Dr. Cheung and medically cleared for surgery by internal medicine. Patient is admitted to [facility] on 02/06/2018 and closed reduction and intramedullary hip screw fixation of the left hip was performed on 2017. The procedures performed without complication or sequelae. The patient is doing well postoperatively. Labs and vital signs are stable on day of discharge. On day of discharge patient's hip incision is healing well. There is minimal erythema. There is minimal drainage noted at this time. There is minimal soft tissue swelling to the hip and thigh. Patient has full foot and ankle motion without difficulty or pain. Neurovascular status to the left lower extremity is intact. Patient is discharged to rehab in good condition. Please see med rec for accurate list of home medications. Patient Condition at Discharge: Fair Plan - Discharge Summary Discharge Rx Participant: No New Discharge Prescriptions: New HYDROcodone/APAP 5-325MG [[place] 5-325] 1 - 2 tab PO Q4-6H PRN #84 tab PRN Reason: Pain Sennosides [Senokot] 1 tab PO BID #60 tablet Aspirin [Adult Low Dose Aspirin EC] 81 mg PO DAILY #30 tablet. Clopidogrel [Plavix] 75 mg PO DAILY #30 tablet Aspirin 325 mg PO DAILY #30 tab Discontinued Aspirin EC [Ecotrin Low Dose] 81 mg PO HS@20 No Action Simvastatin [Zocor] 40 mg PO HS@20 busPIRone HCL [Buspar] 30 mg PO BID@08,20 DULoxetine HCL [Cymbalta] 60 mg PO BID@08,20 Econazole Nitrate 1 applic TOPICAL DAILY Isosorbide Mononitrate ER [Imdur] 30 mg PO HS@20 Furosemide [Lasix] 20 mg PO DAILY@08 hydrALAZINE HCL [Apresoline] 50 mg PO TID@,, Metoprolol Succinate [Toprol XL] 50 mg PO DAILY@08 Loratadine [Claritin] 10 mg PO HS@20 hydrOXYzine HCL [Atarax] 25 mg PO HS PRN PRN Reason: ITCH/ANXIETY QUEtiapine FUMARATE [SEROquel] 25 - 50 mg PO HS@20 Divalproex ER [Depakote ER] 250 mg PO HS@20 Divalproex Sodium [Depakote] 250 mg PO HS@20 Divalproex Sodium [Depakote] 125 mg PO DAILY@08 Benazepril HCl 40 mg PO DAILY@08 Finasteride [Proscar] 5 mg PO DAILY@08 Tamsulosin [Flomax] 0.4 mg PO BID@08, Clopidogrel [Plavix] 75 mg PO HS@20 Discharge Medication List Simvastatin [Zocor] 40 mg PO HS@20 06/21/15 [History] busPIRone HCL [Buspar] 30 mg PO BID@08,20 06/21/15 [History] DULoxetine HCL [Cymbalta] 60 mg PO BID@08,20 07/02/16 [History] Econazole Nitrate 1 applic TOPICAL DAILY 07/02/16 [History] Isosorbide Mononitrate ER [Imdur] 30 mg PO HS@20 07/02/16 [History] Furosemide [Lasix] 20 mg PO DAILY@08 04/10/17 [History] Metoprolol Succinate [Toprol XL] 50 mg PO DAILY@08 04/10/17 [History] hydrALAZINE HCL [Apresoline] 50 mg PO TID@,14,20 04/10/17 [History] Loratadine [Claritin] 10 mg PO HS@20 05/14/17 [History] Benazepril HCl 40 mg PO DAILY@08 02/06/18 [History] Clopidogrel [Plavix] 75 mg PO HS@20 02/06/18 [History] Divalproex ER [Depakote ER] 250 mg PO HS@02/06/18 [History] Divalproex Sodium [Depakote] 125 mg PO DAILY@02/06/18 [History] Divalproex Sodium [Depakote] 250 mg PO HS@02/06/18 [History] Finasteride [Proscar] 5 mg PO DAILY@02/06/18 [History] QUEtiapine FUMARATE [SEROquel] 25 - 50 mg PO HS@02/06/18 [History] Tamsulosin [Flomax] 0.4 mg PO BID@02/06/18 [History] hydrOXYzine HCL [Atarax] 25 mg PO HS PRN 02/06/18 [History] Aspirin 325 mg PO DAILY #30 tab 02/11/18 [Rx] Aspirin [Adult Low Dose Aspirin EC] 81 mg PO DAILY #30 tablet. 02/11/18 [Rx] Clopidogrel [Plavix] 75 mg PO DAILY #30 tablet 02/11/18 [Rx] HYDROcodone/APAP 5-325MG [[place] 5-325] 1 - 2 tab PO Q4-6H PRN #84 tab 02/11/18 [ Rx] Sennosides [Senokot] 1 tab PO BID #60 tablet 02/11/18 [Rx] Follow up Appointment(s)/Referral(s): Emilio Naqvi MD [STAFF PHYSICIAN] - 03/01/18 1:30 pm Nonstaff,Physician [Primary Care Provider] - 1-2 days Jayy Cheung DO [Doctor of Osteopathic Medicine] - 02/22/18 1:00 pm (with Gina) Activity/Diet/Wound Care/Special Instructions: 50% weightbearing with walker. Daily dressing changes. Emily to be removed in 10-14 days. Patient may shower in 24-48 hours if no drainage from the incision. Follow-up with [facility] in 2 weeks, please call with any questions or concerns [phone] Discharge Disposition: TRANSFER TO SNF/ECF
[2018-02-11 13:31] LABS: Glucose,Whole Blood 146 mg/dL (75-99)
[2018-02-11 15:10] LABS: Glucose,Whole Blood 90 mg/dL (75-99)
[2018-02-11] MEDS: METOPROLOL SUCCINATE (ER) 25 MG TAB.ER.24H PO SCH (16:19)
--- NOTE | 2018-02-11 16:51 | CT ---
EXAMINATION TYPE: CT chest angio for PE DATE OF EXAM: 02/11/2018 COMPARISON: NONE HISTORY: SOB CT DLP: 173.3 mGycm. Automated Exposure Control for Dose Reduction was Utilized. CONTRAST: CTA scan of the thorax is performed with IV Contrast, patient injected with 70 mL of Isovue 370, pulm onary embolism protocol. MIP Images are created on CT scanner and reviewed. FINDINGS: LUNGS: There is biapical pleural-parenchymal thickening and a calcified right upper lobe pulmonary gr anuloma. Noncalcified right lower lobe pulmonary nodule is seen on series 5 image 88 measuring 5 mm. Left basilar consolidation is high density in comparison to the paraspinal musculature and therefore likely relates to subsegmental atelectasis. Focal pleural thickening is seen along the left lung base on series 5 image 85 measuring 4 mm. Scattered areas of atelectasis are noted throughout. There is a lso intralobular septal thickening likely on the basis of mild interstitial pulmonary edema and in th e setting of cardiomegaly may relate to cardiogenic fluid overload. No suspicious pulmonary mass. T here is no pleural effusion or pneumothorax seen. MEDIASTINUM: There is aneurysmal dilatation of the ascending thoracic aorta measuring 4.1 cm and aort ic root measuring 4.4 cm. Descending thoracic aorta is within normal limits measuring 2.6 cm. Althoug h contrast timing is suboptimal there is no gross evidence of dissection of the thoracic aorta. There is satisfactory enhancement of the pulmonary artery and its branches, there is no CT evidence for pu lmonary embolism. There are no greater than 1 cm hilar or mediastinal lymph nodes. Calcified mediast inal lymph nodes are noted, benign. Heart is enlarged. No pericardial effusion. OTHER: Dystrophic calcifications likely from fat necrosis are seen within the the upper outer quadran t of the left chest extending into the axilla. Step-off of the inferior sternum relates to motion art ifact as this is also seen at the skin surface. Multilevel mild degenerative changes of the thoracic spine are noted. IMPRESSION: 1. No evidence of pulmonary embolus. 2. Ascending thoracic aortic aneurysm and dilatation of the aortic root. No gross evidence of dissect ion of the thoracic aorta. 3. Findings suggesting mild interstitial pulmonary edema, likely related to congestive heart failure in the setting of global cardiomegaly. 4. 5 mm right basilar pulmonary nodule and 4 mm left-sided pleural thickening thickened urinary evalu ated in 6-12 months for stability.
[2018-02-11] MEDS: SENNOSIDES-DOCUSATE SODIUM 1 EACH TAB PO SCH (19:55)
[2018-02-11] MEDS: ATORVASTATIN 20 MG TAB PO SCH (19:55)
[2018-02-11] MEDS: ISOSORBIDE MONONITRATE ER 30 MG TAB.ER.24H PO SCH (19:55)
[2018-02-11] MEDS: LORATADINE 10 MG TAB PO SCH (19:55)
[2018-02-11] MEDS: QUEtiapine 25 MG TAB PO SCH (20:01)
--- NOTE | 2018-02-11 22:56 | PN ---
PROGRESS NOTE SUBJECTIVE: This is a 72-year-old white male with left hip fracture, hypertension. Medications have been adjusted. He will be sent to rehab center today. CARDIOVASCULAR: S1, S2. LUNGS: Clear. GI: Soft. HEMATOLOGY: Negative Homans. ASSESSMENT: 1. Left hip fracture. 2. Generalized debility. Continue with PT, OT, rehab at [facility]. MMODL / IJN: [id number] /
[2018-02-12] MEDS: HYDROcodone/APAP 5-325MG 1 EACH TAB PO PRN ×3 (04:34→19:32)
[2018-02-12] MEDS: SODIUM CHLORIDE 0.9% 1,000 ML IV SCH ×2 (04:35→16:11)
--- NOTE | 2018-02-12 07:55 | P.PN ---
Subjective Progress Note Date: 02/12/18 This is a 72-year-old male who who is status post closed reduction and intramedullary hip screw fixation of left hip. This is postoperative day #3. Patient is seen and evaluated at bedside. Per the nurses, the patient became short of breath yesterday right after his iron infusion. A CT of the chest was done and is negative for pulmonary embolism. Patient's O2 sats are 97% on 4 L of oxygen. Patient denies any new symptoms or complaints today. Patient denies any fever/chills, numbness, weakness, tingling, abdominal pain, shortness of breath or chest pain. Objective - Vital Signs Vital signs: Vital Signs Temp 98.5 F 02/11/18 23:19 Pulse 88 02/11/18 23:19 Resp 20 02/11/18 23:19 BP 104/64 02/11/18 23:19 Pulse Ox 97 02/12/18 07:33 Intake & Output 02/11/18 02/12/18 02/12/18 18:59 06:59 18:59 Intake Total 1300 1250 Output Total 1350 600 Balance -50 650 Weight 48 kg Intake: Intake, IV Titration 800 1250 Amount Sodium Chloride 0.9% 1, 800 800 000 ml @ 100 mls/hr IV . Q10H [facility] Rx#:[id number] Sodium Ferric Gluconat- 450 Sucrose 125 mg In Sodium Chloride 0.9% 100 ml @ 100 mls/hr IVPB ONCE ONE Rx#:[id number] Oral 500 Output: Urine 1350 600 Straight 500 600 Uretheral ([place]) 850 Other: Voiding Method Indwelling Catheter - Exam Patient is resting comfortably in bed in no acute distress. Vital signs are stable. Calf is soft and nontender to palpation. Dressing is clean, dry, and intact. There is soft tissue swelling of the left thigh. Compartments are soft. Neurovascular status and circulatory status are intact. - Labs CBC & Chem 7: 02/11/18 06:24 02/06/18 16:35 Labs: Abnormal Lab Results - Last 24 Hours (Table) 02/11/18 Range/Units 13:29 POC Glucose (mg/dL) 146 H (75-99) mg/dL Assessment and Plan (1) Closed left hip fracture Current Visit: Yes Status: Acute Code(s): S72.002A - FRACTURE OF UNSP PART OF NECK OF LEFT FEMUR, INIT SNOMED Code(s): 824088866 (2) Fall Current Visit: Yes Status: Acute Code(s): W19.XXXA - UNSPECIFIED FALL, INITIAL ENCOUNTER SNOMED Code(s): 7821479 Plan: Continue routine postop care. Recheck hemoglobin. Continue antocoagulation with aspirin and Plavix. 50% weightbearing to the left lower extremity with a walker. Daily dressing changes. Appreciate input from medicine. Likely discharge to rehab in the next 1-2 days.
[2018-02-12] MEDS: FUROSEMIDE 20 MG TAB PO SCH (08:34)
[2018-02-12] MEDS: CLOPIDOGREL 75 MG TAB PO SCH (08:34)
[2018-02-12] MEDS: busPIRone HCl 10 MG TAB PO SCH ×2 (08:34→20:53)
[2018-02-12] MEDS: FERROUS SULFATE 325 MG TAB PO SCH (08:34)
[2018-02-12] MEDS: FINASTERIDE 5 MG TAB PO SCH (08:35)
[2018-02-12] MEDS: TAMSULOSIN 0.4 MG CAP.ER.24H PO SCH ×2 (08:35→20:54)
[2018-02-12] MEDS: ASPIRIN 325 MG TAB PO SCH (08:35)
[2018-02-12] MEDS: LISINOPRIL 20 MG TAB PO SCH (08:35)
[2018-02-12] MEDS: METOPROLOL SUCCINATE (ER) 25 MG TAB.ER.24H PO SCH (08:35)
[2018-02-12] MEDS: DULoxetine HCL 60 MG CAPSULE.DR PO SCH ×2 (08:35→20:54)
[2018-02-12] MEDS: ENOXAPARIN 40 MG/0.4 ML SYRINGE SQ SCH (08:35)
[2018-02-12] MEDS: DIVALPROEX SPRINKLE 125 MG CAP.SPRINK PO SCH ×2 (08:35→20:54)
[2018-02-12] MEDS: CLOTRIMAZOLE 1% CREAM 15 GM TUBE TOPICAL SCH (08:36)
[2018-02-12] MEDS: hydrALAZINE HCL 50 MG TAB PO SCH ×3 (08:47→20:54)
[2018-02-12 08:55] LABS: Basophils % (A) 0 %; Eosinophils % (A) 0 %; Lymphocytes # (A) 1.2 k/uL (1.0-4.8); Lymphocytes % (A) 9 %; MCH 32.3 pg (25.0-35.0); MCHC 35.5 g/dL (31.0-37.0); MCV 91.1 fL (80.0-100.0); Monocytes # (A) 1.3 k/uL (0-1.0); Monocytes % (A) 10 %; Neutrophils % (A) 79 %; Platelet Count 265 k/uL (150-450); RBC 2.16 m/uL (4.30-5.90); RDW 14.8 % (11.5-15.5); WBC 12.7 k/uL (3.8-10.6)
[2018-02-12 08:57] LABS: HCT 19.6 % (39.0-53.0)
[2018-02-12 11:50] VITALS: BMI 19.3
[2018-02-12] MEDS: QUEtiapine 25 MG TAB PO SCH (20:53)
[2018-02-12] MEDS: SENNOSIDES-DOCUSATE SODIUM 1 EACH TAB PO SCH (20:54)
[2018-02-12] MEDS: ISOSORBIDE MONONITRATE ER 30 MG TAB.ER.24H PO SCH (20:54)
[2018-02-12] MEDS: ATORVASTATIN 20 MG TAB PO SCH (20:54)
[2018-02-12] MEDS: LORATADINE 10 MG TAB PO SCH (20:54)
[2018-02-13] MEDS: SODIUM CHLORIDE 0.9% 1,000 ML IV SCH ×2 (00:56→02:15)
[2018-02-13] MEDS: HYDROcodone/APAP 5-325MG 1 EACH TAB PO PRN ×3 (02:48→18:11)
--- NOTE | 2018-02-13 08:50 | P.PN ---
Subjective Progress Note Date: 02/13/18 Principal diagnosis: Status post left hip IT nail This is a 72 year-old male post left hip IT nail. This is post-op day 4. The patient was evaluated at the bedside today. The patient denies nausea, vomiting , abdominal pain, shortness of breath, and chest pain this morning. He states his pain is controlled at this time. The patient has been up with physical therapy but has been moving slow. The patient did receive 1 unit of packed red blood cells yesterday for hemoglobin of 7.0. Objective - Vital Signs Vital signs: Vital Signs Temp 97.8 F 02/13/18 01:15 Pulse 85 02/13/18 01:15 Resp 16 02/13/18 01:15 BP 100/63 02/13/18 01:15 Pulse Ox 98 02/13/18 01:15 Intake & Output 02/12/18 02/13/18 02/13/18 18:59 06:59 18:59 Intake Total 500 1100 Output Total 1600 700 Balance -1100 400 Weight 48 kg Intake: Intake, IV Titration 500 1100 Amount Sodium Chloride 0.9% 1, 500 1100 000 ml @ 100 mls/hr IV . Q10H [facility] Rx#:[id number] Blood Product 0 Rc As-1 Unit 0 [id number] Output: Urine 1600 700 Other: Voiding Method Indwelling Catheter Indwelling Catheter - Exam The patient does not appear in acute distress. Alert and orientated x2. Dressing is clean dry and intact. Incision appears fine with no erythema or active drainage. Calf is soft and nontender. Good foot and ankle motion without difficulty. Sensation and circulatory status is intact. - Labs CBC & Chem 7: 02/13/18 08:35 02/06/18 16:35 Labs: Abnormal Lab Results - Last 24 Hours (Table) 02/12/18 02/12/18 Range/Units 08:09 10:30 WBC 12.7 H (3.8-10.6) k/uL RBC 2.16 L (4.30-5.90) m/uL Hgb 7.0 L* (13.0-17.5) gm/dL Hct 19.6 L* (39.0-53.0) % Neutrophils # 10.0 H (1.3-7.7) k/uL Monocytes # 1.3 H (0-1.0) k/uL Crossmatch See Detail Assessment and Plan (1) Status post hip surgery Current Visit: Yes Status: Acute Code(s): Z98.890 - OTHER SPECIFIED POSTPROCEDURAL STATES SNOMED Code(s): 497447305 (2) Closed left hip fracture Current Visit: Yes Status: Acute Code(s): S72.002A - FRACTURE OF UNSP PART OF NECK OF LEFT FEMUR, INIT SNOMED Code(s): 171885765 (3) Fall Current Visit: Yes Status: Acute Code(s): W19.XXXA - UNSPECIFIED FALL, INITIAL ENCOUNTER SNOMED Code(s): 3403225 Plan: 1. Continue pain control 2. Repeat CBC today 3. Anticoagulation with Lovenox per medical management 4. Continue physical therapy and ambulation 5. Anticipate discharge to skilled rehab next week
[2018-02-13 08:57] LABS: Basophils % (A) 0 %; Eosinophils # (A) 0.4 k/uL (0-0.7); Eosinophils % (A) 4 %; Lymphocytes % (A) 11 %; MCH 30.6 pg (25.0-35.0); MCHC 33.6 g/dL (31.0-37.0); MCV 91.2 fL (80.0-100.0); Mean Platelet Volume 6.9; Monocytes # (A) 0.9 k/uL (0-1.0); Monocytes % (A) 10 %; Neutrophils # (A) 7.5 k/uL (1.3-7.7); Neutrophils % (A) 75 %; Platelet Count 271 k/uL (150-450); RBC 2.15 m/uL (4.30-5.90)
[2018-02-13 08:58] LABS: HCT 19.6 % (39.0-53.0); HGB 6.6 gm/dL (13.0-17.5)
[2018-02-13] MEDS: FUROSEMIDE 10 MG/ML 4 ML VIAL IV SCH ×2 (09:47→23:31)
[2018-02-13] MEDS: TAMSULOSIN 0.4 MG CAP.ER.24H PO SCH ×2 (09:58→22:08)
[2018-02-13] MEDS: METOPROLOL SUCCINATE (ER) 25 MG TAB.ER.24H PO SCH (09:58)
[2018-02-13] MEDS: busPIRone HCl 10 MG TAB PO SCH ×2 (09:59→22:09)
[2018-02-13] MEDS: LISINOPRIL 20 MG TAB PO SCH (09:59)
[2018-02-13] MEDS: FINASTERIDE 5 MG TAB PO SCH (10:00)
[2018-02-13] MEDS: hydrALAZINE HCL 50 MG TAB PO SCH ×3 (10:00→22:07)
[2018-02-13] MEDS: DIVALPROEX SPRINKLE 125 MG CAP.SPRINK PO SCH ×2 (10:00→22:10)
[2018-02-13] MEDS: CLOTRIMAZOLE 1% CREAM 15 GM TUBE TOPICAL SCH (10:07)
[2018-02-13] MEDS: CLOPIDOGREL 75 MG TAB PO SCH (10:08)
[2018-02-13] MEDS: ASPIRIN 325 MG TAB PO SCH (10:08)
[2018-02-13] MEDS: DULoxetine HCL 60 MG CAPSULE.DR PO SCH ×2 (10:08→22:08)
[2018-02-13] MEDS: ENOXAPARIN 40 MG/0.4 ML SYRINGE SQ SCH (10:09)
[2018-02-13] MEDS: FUROSEMIDE 20 MG TAB PO SCH (13:34)
[2018-02-13] MEDS: FERROUS SULFATE 325 MG TAB PO SCH (13:38)
--- NOTE | 2018-02-13 13:40 | XR ---
EXAMINATION TYPE: XR chest 1V portable DATE OF EXAM: 02/13/2018 HISTORY: shortness of breath. REFERENCE: Previous study dated 02/06/2018. FINDINGS: The lungs appear clear. Pleural spaces are clear. Heart size upper limits of normal. There is some unfolding of the thoracic aorta. IMPRESSION: NO ACUTE INTRATHORACIC ABNORMALITY.
[2018-02-13 20:09] LABS: Glucose,Whole Blood 146 mg/dL (75-99)
[2018-02-13] MEDS: ATORVASTATIN 20 MG TAB PO SCH (22:07)
[2018-02-13] MEDS: SENNOSIDES-DOCUSATE SODIUM 1 EACH TAB PO SCH (22:08)
[2018-02-13] MEDS: ISOSORBIDE MONONITRATE ER 30 MG TAB.ER.24H PO SCH (22:08)
[2018-02-13] MEDS: LORATADINE 10 MG TAB PO SCH (22:08)
[2018-02-13] MEDS: QUEtiapine 25 MG TAB PO SCH (22:10)
--- NOTE | 2018-02-13 22:49 | PN ---
PROGRESS NOTE SUBJECTIVE: This 72-year-old white male is status post left hip fracture. He has hemoglobin down into the 6's. He is on Lovenox, Plavix and aspirin. No signs of any bleeding. We are going to give him a unit of blood. He is short of breath. Cardiology ordered Lasix 40 mg b.i.d. IVs will be cut down, give him a unit of blood, Lasix x2, check hemoglobin in the morning. Possibly will have to stop his Lovenox if any further bleeding occurs. PSYCH: Fair mood and affect. NEURO: Alert orient x3. GI: Soft. No mass. HEMATOLOGY: Negative Homans'. ASSESSMENT: 1. Left hip fracture. 2. Severe anemia, status post hip fracture. 3. History of arrhythmia. 4. Coronary artery disease. 5. Hypertension. 6. Possible dementia. Please see further orders. MMODL / IJN: [id number] /
[2018-02-14] MEDS: HYDROcodone/APAP 5-325MG 1 EACH TAB PO PRN ×4 (03:17→22:25)
[2018-02-14 08:24] LABS: Anisocytosis Slight; Basophils % (A) 0 %; Eosinophils # (A) 0.5 k/uL (0-0.7); Eosinophils % (A) 4 %; HCT 27.1 % (39.0-53.0); Lymphocytes # (A) 1.7 k/uL (1.0-4.8); Lymphocytes % (A) 12 %; MCHC 33.9 g/dL (31.0-37.0); MCV 88.6 fL (80.0-100.0); Mean Platelet Volume 6.6; Monocytes # (A) 1.1 k/uL (0-1.0); Monocytes % (A) 8 %; Neutrophils # (A) 9.9 k/uL (1.3-7.7); Neutrophils % (A) 74 %; Platelet Count 411 k/uL (150-450); RBC 3.05 m/uL (4.30-5.90); RDW 17.5 % (11.5-15.5); WBC 13.4 k/uL (3.8-10.6)
[2018-02-14 08:32] LABS: HGB 9.2 gm/dL (13.0-17.5)
[2018-02-14] MEDS: busPIRone HCl 10 MG TAB PO SCH ×2 (09:27→20:49)
[2018-02-14] MEDS: TAMSULOSIN 0.4 MG CAP.ER.24H PO SCH ×2 (09:27→20:50)
[2018-02-14] MEDS: FERROUS SULFATE 325 MG TAB PO SCH (09:27)
[2018-02-14] MEDS: LISINOPRIL 20 MG TAB PO SCH (09:27)
[2018-02-14] MEDS: hydrALAZINE HCL 50 MG TAB PO SCH ×3 (09:27→20:50)
[2018-02-14] MEDS: DIVALPROEX SPRINKLE 125 MG CAP.SPRINK PO SCH ×2 (09:27→20:49)
[2018-02-14] MEDS: FINASTERIDE 5 MG TAB PO SCH (09:27)
[2018-02-14] MEDS: METOPROLOL SUCCINATE (ER) 25 MG TAB.ER.24H PO SCH (09:27)
[2018-02-14] MEDS: DULoxetine HCL 60 MG CAPSULE.DR PO SCH ×2 (09:27→20:49)
[2018-02-14] MEDS: FUROSEMIDE 10 MG/ML 4 ML VIAL IV SCH ×2 (09:28→20:50)
[2018-02-14] MEDS: CLOTRIMAZOLE 1% CREAM 15 GM TUBE TOPICAL SCH (09:28)
--- NOTE | 2018-02-14 09:42 | P.PN ---
Subjective Progress Note Date: 02/14/18 Principal diagnosis: Status post left hip IT nail This is a 72 year-old male post left hip IT nail. This is post-op day 5. The patient was evaluated at the bedside today. The patient denies nausea, vomiting , abdominal pain, shortness of breath, and chest pain this morning. He states his pain is controlled at this time. The patient has been up with physical therapy but has been moving slow. The patient did receive 1 unit of packed red blood cells yesterday his hemoglobin this morning is 9.2. Objective - Vital Signs Vital signs: Vital Signs Temp 99.1 F 02/14/18 08:20 Pulse 89 02/14/18 08:20 Resp 14 02/14/18 08:20 BP 118/74 02/14/18 08:20 Pulse Ox 97 02/14/18 08:20 Intake & Output 02/13/18 02/14/18 02/14/18 18:59 06:59 18:59 Intake Total 540 780 Output Total 1949 1949 Balance -1410 -1170 Intake: IV 310 PRBCs 310 Intake, IV Titration 200 160 Amount Sodium Chloride 0.9% 1, 200 160 000 ml @ 100 mls/hr IV . Q10H [facility] Rx#:[id number] Oral 340 Blood Product 310 Rc As-1 Unit 310 [id number] Output: Urine 1949 1949 Straight 1949 1949 Other: Voiding Method Indwelling Catheter Indwelling Catheter Indwelling Catheter - Exam The patient does not appear in acute distress. Alert and orientated x2. Dressing is clean dry and intact. Incision appears fine with no erythema or active drainage. Calf is soft and nontender. Good foot and ankle motion without difficulty. Sensation and circulatory status is intact. - Labs CBC & Chem 7: 02/14/18 08:08 02/06/18 16:35 Labs: Abnormal Lab Results - Last 24 Hours (Table) 02/12/18 02/13/18 02/14/18 Range/Units 10:30 20:07 08:08 WBC 13.4 H (3.8-10.6) k/uL RBC 3.05 L (4.30-5.90) m/uL Hgb 9.2 L D (13.0-17.5) gm/dL Hct 27.1 L (39.0-53.0) % RDW 17.5 H (11.5-15.5) % Neutrophils # 9.9 H (1.3-7.7) k/uL Monocytes # 1.1 H (0-1.0) k/uL POC Glucose (mg/dL) 146 H (75-99) mg/dL Crossmatch See Detail Assessment and Plan (1) Status post hip surgery Current Visit: Yes Status: Acute Code(s): Z98.890 - OTHER SPECIFIED POSTPROCEDURAL STATES SNOMED Code(s): 552843584 (2) Closed left hip fracture Current Visit: Yes Status: Acute Code(s): S72.002A - FRACTURE OF UNSP PART OF NECK OF LEFT FEMUR, INIT SNOMED Code(s): 193407911 (3) Fall Current Visit: Yes Status: Acute Code(s): W19.XXXA - UNSPECIFIED FALL, INITIAL ENCOUNTER SNOMED Code(s): 1080525 Plan: 1. Continue pain control 2. Anticoagulation with Lovenox per medical management 3. Continue physical therapy and ambulation 4. Anticipate discharge to skilled rehab in the next 1-2 days if medically cleared.
[2018-02-14] MEDS: ASPIRIN 325 MG TAB PO SCH (10:19)
[2018-02-14] MEDS: CLOPIDOGREL 75 MG TAB PO SCH (10:19)
[2018-02-14] MEDS: ENOXAPARIN 40 MG/0.4 ML SYRINGE SQ SCH (10:27)
--- NOTE | 2018-02-14 19:14 | PN ---
PROGRESS NOTE SUBJECTIVE: 72-year-old white male status post hip surgery. Hemoglobin was low, given one unit of blood yesterday; hemoglobin went up to 9.2. We will give some iron through the IV today. ProBNP is 1020. We are going to take him off Lovenox due to bleeding, possible bleeding and severe anemia and keep him on his Plavix and aspirin. He is up in a chair. He is breathing better. Temp 99.1, pulse 89, respiratory 14, O2 97% on room air, blood pressure 120s over 70s. Cardiovascular S1-S2. Lungs decreased breath sounds x4. Hematology negative Homans. Psych: Fair mood and affect. He is to continue with current treatment. As mentioned stop Lovenox. Continue Plavix and aspirin. Follow up next 24 to 48 hours. MMODL / IJN: [id number] /
[2018-02-14] MEDS: ATORVASTATIN 20 MG TAB PO SCH (20:48)
[2018-02-14] MEDS: ISOSORBIDE MONONITRATE ER 30 MG TAB.ER.24H PO SCH (20:50)
[2018-02-14] MEDS: LORATADINE 10 MG TAB PO SCH (20:50)
[2018-02-14] MEDS: QUEtiapine 25 MG TAB PO SCH (20:50)
[2018-02-14] MEDS: SENNOSIDES-DOCUSATE SODIUM 1 EACH TAB PO SCH (20:50)
[2018-02-15] MEDS: HYDROcodone/APAP 5-325MG 1 EACH TAB PO PRN ×2 (04:37→12:24)
[2018-02-15 07:18] VITALS: BP 134/74; PULSE 75; RESP 14; TEMP 97.4
--- NOTE | 2018-02-15 08:33 | P.DS ---
Providers Date of admission: 02/06/18 18:37 Expected date of discharge: 02/15/18 Attending physician: Jayy Cheung Consults: 02/06/18 18:37 Consult Physician Routine Consulting Provider: Maciel Medeiros Consult Reason/Comments: med Do you want consulting provider notified?: Yes 02/06/18 21:27 Consult Physician Routine Consulting Provider: Luis Cee Consult Reason/Comments: pre op clearance Do you want consulting provider notified?: Yes, Notify in am Primary care physician: Physician Nonstaff - Discharge Diagnosis(es) (1) Closed left hip fracture Current Visit: Yes Status: Acute (2) Fall Current Visit: Yes Status: Acute Hospital Course: This is a 72-year-old male who sustained a left hip fracture after a fall. The patient presents for evaluation. After discussion and consideration the patient 's family elect to proceed with closed reduction and intramedullary hip screw fixation left hip. The patient is seen preoperatively by Dr. Cheung and medically cleared for surgery by internal medicine. Patient is admitted to [facility] on 02/06/2018 and closed reduction and intramedullary hip screw fixation of the left hip was performed on 2017. The procedures performed without complication or sequelae. The patient is doing well postoperatively. Patient had a CT of the chest that was negative for pulmonary embolism. Patient was given two units of blood and hemoglobin is stable. Labs and vital signs are stable on day of discharge. On day of discharge patient's hip incision is healing well. There is minimal erythema. There is minimal drainage noted at this time. There is minimal soft tissue swelling to the hip and thigh. Compartments are soft. Patient has full foot and ankle motion without difficulty or pain. Neurovascular status to the left lower extremity is intact. Patient is discharged to rehab in good condition. Please see med rec for accurate list of home medications. Patient Condition at Discharge: Fair Plan - Discharge Summary Discharge Rx Participant: No New Discharge Prescriptions: New HYDROcodone/APAP 5-325MG [[place] 5-325] 1 - 2 tab PO Q4-6H PRN #84 tab PRN Reason: Pain Sennosides [Senokot] 1 tab PO BID #60 tablet Aspirin [Adult Low Dose Aspirin EC] 81 mg PO DAILY #30 tablet. Clopidogrel [Plavix] 75 mg PO DAILY #30 tablet Aspirin 325 mg PO DAILY #30 tab Aspirin 325 mg PO DAILY tab Enoxaparin [Lovenox] 40 mg SQ DAILY syringe Ferrous Sulfate [Iron (65 MG Elemental)] 325 mg PO W/LUNCH tab Continue Simvastatin [Zocor] 40 mg PO HS@20 busPIRone HCL [Buspar] 30 mg PO BID@08,20 DULoxetine HCL [Cymbalta] 60 mg PO BID@08,20 Econazole Nitrate 1 applic TOPICAL DAILY Isosorbide Mononitrate ER [Imdur] 30 mg PO HS@20 Furosemide [Lasix] 20 mg PO DAILY@08 hydrALAZINE HCL [Apresoline] 50 mg PO TID@,, Metoprolol Succinate [Toprol XL] 50 mg PO DAILY@08 Loratadine [Claritin] 10 mg PO HS@20 hydrOXYzine HCL [Atarax] 25 mg PO HS PRN PRN Reason: ITCH/ANXIETY QUEtiapine FUMARATE [SEROquel] 25 - 50 mg PO HS@20 Divalproex ER [Depakote ER] 250 mg PO HS@20 Divalproex Sodium [Depakote] 250 mg PO HS@20 Divalproex Sodium [Depakote] 125 mg PO DAILY@08 Benazepril HCl 40 mg PO DAILY@08 Finasteride [Proscar] 5 mg PO DAILY@08 Tamsulosin [Flomax] 0.4 mg PO BID@08,20 Clopidogrel [Plavix] 75 mg PO HS@20 Discontinued Aspirin EC [Ecotrin Low Dose] 81 mg PO HS@20 Discharge Medication List Simvastatin [Zocor] 40 mg PO HS@20 06/21/15 [History] busPIRone HCL [Buspar] 30 mg PO BID@08,20 06/21/15 [History] DULoxetine HCL [Cymbalta] 60 mg PO BID@08,20 07/02/16 [History] Econazole Nitrate 1 applic TOPICAL DAILY 07/02/16 [History] Isosorbide Mononitrate ER [Imdur] 30 mg PO HS@20 07/02/16 [History] Furosemide [Lasix] 20 mg PO DAILY@08 04/10/17 [History] Metoprolol Succinate [Toprol XL] 50 mg PO DAILY@08 04/10/17 [History] hydrALAZINE HCL [Apresoline] 50 mg PO TID@08,14,04/10/17 [History] Loratadine [Claritin] 10 mg PO HS@05/14/17 [History] Benazepril HCl 40 mg PO DAILY@02/06/18 [History] Clopidogrel [Plavix] 75 mg PO HS@02/06/18 [History] Divalproex ER [Depakote ER] 250 mg PO HS@02/06/18 [History] Divalproex Sodium [Depakote] 125 mg PO DAILY@02/06/18 [History] Divalproex Sodium [Depakote] 250 mg PO HS@02/06/18 [History] Finasteride [Proscar] 5 mg PO DAILY@02/06/18 [History] QUEtiapine FUMARATE [SEROquel] 25 - 50 mg PO HS@02/06/18 [History] Tamsulosin [Flomax] 0.4 mg PO BID@02/06/18 [History] hydrOXYzine HCL [Atarax] 25 mg PO HS PRN 02/06/18 [History] Aspirin 325 mg PO DAILY tab 02/11/18 [Rx] Aspirin 325 mg PO DAILY #30 tab 02/11/18 [Rx] Aspirin [Adult Low Dose Aspirin EC] 81 mg PO DAILY #30 tablet. 02/11/18 [Rx] Clopidogrel [Plavix] 75 mg PO DAILY #30 tablet 02/11/18 [Rx] Enoxaparin [Lovenox] 40 mg SQ DAILY syringe 02/11/18 [Rx] Ferrous Sulfate [Iron (65 MG Elemental)] 325 mg PO W/LUNCH tab 02/11/18 [Rx] HYDROcodone/APAP 5-325MG [[place] 5-325] 1 - 2 tab PO Q4-6H PRN #84 tab 02/11/18 [ Rx] Sennosides [Senokot] 1 tab PO BID #60 tablet 02/11/18 [Rx] Follow up Appointment(s)/Referral(s): Emilio Naqvi MD [STAFF PHYSICIAN] - 03/01/18 1:30 pm Nonstaff,Physician [Primary Care Provider] - 1-2 days Jayy Cheung DO [Doctor of Osteopathic Medicine] - 02/22/18 1:00 pm (with Gina) Ambulatory/Diagnostic Orders: Complete Blood Count w/diff [LAB.AMB] Time Frame: 02/12/18, Location: None Selected Activity/Diet/Wound Care/Special Instructions: 50% weightbearing with walker. Daily dressing changes. Emily to be removed in 10-14 days. Patient may shower in 24-48 hours if no drainage from the incision. Follow-up with [facility] in 2 weeks, please call with any questions or concerns [phone] Discharge Disposition: TRANSFER TO SNF/ECF
[2018-02-15 08:46] LABS: Anisocytosis Slight; Basophils % (A) 0 %; Eosinophils # (A) 0.7 k/uL (0-0.7); Eosinophils % (A) 7 %; HCT 24.5 % (39.0-53.0); Lymphocytes # (A) 1.8 k/uL (1.0-4.8); Lymphocytes % (A) 17 %; MCH 29.7 pg (25.0-35.0); MCHC 32.8 g/dL (31.0-37.0); MCV 90.4 fL (80.0-100.0); Mean Platelet Volume 6.5; Monocytes # (A) 0.9 k/uL (0-1.0); Monocytes % (A) 9 %; Neutrophils # (A) 6.5 k/uL (1.3-7.7); Neutrophils % (A) 64 %; Platelet Count 371 k/uL (150-450); RBC 2.71 m/uL (4.30-5.90); RDW 18.4 % (11.5-15.5); WBC 10.1 k/uL (3.8-10.6)
[2018-02-15 08:59] LABS: ALT 36 U/L (21-72); AST 40 U/L (17-59); Albumin 2.5 g/dL (3.5-5.0); Alkaline Phosphatase 56 U/L (38-126); Anion Gap 6 mmol/L; Blood Urea Nitrogen 17 mg/dL (9-20); Calcium 7.9 mg/dL (8.4-10.2); Carbon Dioxide 30 mmol/L (22-30); Chloride 94 mmol/L (98-107); Glucose 103 mg/dL (74-99); Potassium 3.7 mmol/L (3.5-5.1); Sodium 130 mmol/L (137-145); Total Bilirubin 1.5 mg/dL (0.2-1.3); Total Protein 4.8 g/dL (6.3-8.2)
[2018-02-15] MEDS: METOPROLOL SUCCINATE (ER) 25 MG TAB.ER.24H PO SCH (09:02)
[2018-02-15] MEDS: DULoxetine HCL 60 MG CAPSULE.DR PO SCH (09:02)
[2018-02-15] MEDS: busPIRone HCl 10 MG TAB PO SCH (09:02)
[2018-02-15] MEDS: CLOPIDOGREL 75 MG TAB PO SCH (09:02)
[2018-02-15] MEDS: DIVALPROEX SPRINKLE 125 MG CAP.SPRINK PO SCH (09:02)
[2018-02-15] MEDS: TAMSULOSIN 0.4 MG CAP.ER.24H PO SCH (09:02)
[2018-02-15] MEDS: ASPIRIN 325 MG TAB PO SCH (09:02)
[2018-02-15] MEDS: FERROUS SULFATE 325 MG TAB PO SCH (09:02)
[2018-02-15] MEDS: LISINOPRIL 20 MG TAB PO SCH (09:03)
[2018-02-15] MEDS: hydrALAZINE HCL 50 MG TAB PO SCH (09:03)
[2018-02-15] MEDS: FUROSEMIDE 10 MG/ML 4 ML VIAL IV SCH (09:03)
[2018-02-15] MEDS: FINASTERIDE 5 MG TAB PO SCH (09:03)
[2018-02-15] MEDS: CLOTRIMAZOLE 1% CREAM 15 GM TUBE TOPICAL SCH (09:07)
--- NOTE | 2018-02-16 16:30 | CDI ---
Documentation Clarification Form Date: 02/16/2018 4:13:18 PM From: KELVIN Bass; Rere Romero [employer] Supervisor Phone: If you have a question about this query, please contact Rere Romero [employer] Supervisor at [phone] between 8am and 5pm. Admit Date: 02/06/2018 6:37:00 PM Patient Name: Alireza Alas Visit Number: [id number] Discharge Date: 02/15/2018 ATTENTION: The Clinical Documentation Specialists (CDI) and [facility] Coding Staff appreciate your assistance in clarifying documentation. Please respond to the clarification below the line at the bottom and electronically sign. The CDI & [facility] Coding staff will review the response and follow-up if needed. Please note: Queries are made part of the Legal Health Record. If you have any questions, please contact the author of this message via ITS. Maciel Moraes MD A diagnosis of anemia lacks specificity to accurately reflect your patients severity of condition and clarification is needed. History/Risk Factors: Status post hip fracture with subsequent intramedullary fixation. Clinical indicators: Shortness of breath. Hemoglobin: Post op/6.6 Preop/14.2 Hematocrit: Post op/19.6 Preop 43.0 Treatment: 1 units of PRBCs transfused, IV iron, monitoring labs In order to capture the severity of condition, please clarify the type of anemia and etiology if known: Acute blood loss anemia Acute on chronic blood loss anemia Chronic blood loss anemia Iron deficiency anemia Unable to determine Other, please specify Expected outcome of surgical procedure? Unexpected outcome of surgical procedure? MTDD
--- NOTE | 2018-02-22 11:54 | CDI ---
Last Revision, June 2017 Documentation Clarification Form Date: 02/22/2018 4:13:18 PM From: KELVIN Bass; Rere Romero Industrial Rehabilitation Consultant Phone: If you have a question about this query, please contact Rere Romero Industrial Rehabilitation Consultant at [phone] between 8am and 5pm. Admit Date: 02/06/2018 6:37:00 PM Patient Name: Alireza Alas Visit Number: [id number] Discharge Date: 02/15/2018 ATTENTION: The Clinical Documentation Specialists (CDI) and [facility] Coding Staff appreciate your assistance in clarifying documentation. Please respond to the clarification below the line at the bottom and electronically sign. The CDI & [facility] Coding staff will review the response and follow-up if needed. Please note: Queries are made part of the Legal Health Record. If you have any questions, please contact the author of this message via ITS. Maciel Moraes MD A diagnosis of anemia lacks specificity to accurately reflect your patients severity of condition and clarification is needed. History/Risk Factors: Status post hip fracture with subsequent intramedullary fixation. Clinical indicators: Shortness of breath. Hemoglobin: Post op/6.6 Preop/14.2 Hematocrit: Post op/19.6 Preop 43.0 Treatment: 1 units of PRBCs transfused, IV iron, monitoring labs In order to capture the severity of condition, please clarify the type of anemia and etiology if known: Acute blood loss anemia Acute on chronic blood loss anemia Chronic blood loss anemia Iron deficiency anemia Unable to determine Other, please specify Expected outcome of surgical procedure? Unexpected outcome of surgical procedure? MTDD
--- NOTE | 2018-02-27 07:06 | DS ---
DISCHARGE SUMMARY ADDENDUM: Please add: DISCHARGE SUMMARY: Acute blood loss anemia. MMODL / IJN: [id number] /
== END 2018-02-15 13:00 | DRG 481 ==
LOC: EC 15:57 → 3SUR 18:37
PROVIDERS: ADMIT Orthopaedic Surgery; ATTEND Orthopaedic Surgery
PROC: 0QS736Z Reposition Left Upper Femur with Intramedullary Internal Fixation Device, Percutaneous Approach (ICD-10-PCS; principal; 2018-02-09 09:30)
DX: S72.142A Displaced intertrochanteric fracture of left femur, initial encounter for closed fracture (principal); D62 Acute posthemorrhagic anemia; E78.5 Hyperlipidemia, unspecified; F03.90 Unspecified dementia, unspecified severity, without behavioral disturbance, psychotic disturbance, mood disturbance, and anxiety; F20.9 Schizophrenia, unspecified; F32.9 Major depressive disorder, single episode, unspecified; F43.10 Post-traumatic stress disorder, unspecified; F70 Mild intellectual disabilities; I08.0 Rheumatic disorders of both mitral and aortic valves; I11.0 Hypertensive heart disease with heart failure; I25.10 Atherosclerotic heart disease of native coronary artery without angina pectoris; I48.91 Unspecified atrial fibrillation; I50.9 Heart failure, unspecified; M19.90 Unspecified osteoarthritis, unspecified site; W06.XXXA Fall from bed, initial encounter; Z79.02 Long term (current) use of antithrombotics/antiplatelets; Z79.82 Long term (current) use of aspirin; Z79.899 Other long term (current) drug therapy; Z86.73 Personal history of transient ischemic attack (TIA), and cerebral infarction without residual deficits; Z87.891 Personal history of nicotine dependence; Z98.42 Cataract extraction status, left eye; Z98.41 Cataract extraction status, right eye; Z96.1 Presence of intraocular lens
CPT/HCPCS: 36415; 71045; 71275; 73501; 73502; 80053; 81003; 82550; 82553; 83735; 83880; 84100; 84439; 84443; 84484; 85025; 85610; 85730; 86850; 86900; 86901; 86920; 87086; 93005; 93306; 94760; 96361; 96374; 96375; 99285

== ENCOUNTER 2018-03-23 13:11 | Inpatient (IN) | payer MEDICARE, OTHER ==
[~2018-03-23 13:11] MED LIST: hydrALAZINE HCL 50 MG TAB PO PRN
--- NOTE | 2018-03-23 13:41 | ED ---
General Adult HPI - General Chief complaint: Recheck/Abnormal Lab/Rx Stated complaint: weakness Time Seen by Provider: 03/23/18 13:11 Source: EMS, RN notes reviewed Mode of arrival: EMS Limitations: altered mental status, physical limitation - History of Present Illness Initial comments: This is a 72-year-old male who presents emergency Department because staff believed he was having some right-sided facial droop. Patient was in doing some physical therapy and the caregiver who knows him well saw him and he had some right-sided facial droop and was confused and did not know her name. According to her her the patient is significantly mentally disabled she also states he has atrial fibrillation and hypertension. Patient didn't even recognize her according to the caregiver. Patient also low blood pressure according to the caregiver and so they called the ambulance. Patient himself states there is no states she has no complaints and he is in no pain. There's been no report of any recent fever chills. There is been no report of any cough shortness breath difficulty breathing or chest pain. Patient has had no vomiting or diarrhea. According to staff symptoms of right-sided facial droop and confusion lasted about 10 minutes and now he is back to his baseline. - Related Data Home Medications Medication Instructions Recorded Confirmed Simvastatin [Zocor] 40 mg PO HS@20 06/21/15 03/23/18 busPIRone HCL [Buspar] 30 mg PO BID@,06/21/15 03/23/18 DULoxetine HCL [Cymbalta] 60 mg PO BID@,07/02/16 03/23/18 Econazole Nitrate 1 applic TOPICAL DAILY 07/02/16 03/23/18 Isosorbide Mononitrate ER [Imdur] 30 mg PO HS@20 07/02/16 03/23/18 Furosemide [Lasix] 20 mg PO DAILY@04/10/17 03/23/18 Metoprolol Succinate [Toprol XL] 50 mg PO DAILY@04/10/17 03/23/18 hydrALAZINE HCL [Apresoline] 50 mg PO TID@08,14,20 PRN 04/10/17 03/23/18 Loratadine [Claritin] 10 mg PO HS@20 05/14/17 03/23/18 Clopidogrel [Plavix] 75 mg PO HS@20 02/06/1803/23/18 Divalproex ER [Depakote ER] 250 mg PO HS@02/06/18 03/23/18 Divalproex Sodium [Depakote] 125 mg PO DAILY@02/06/18 03/23/18 Divalproex Sodium [Depakote] 250 mg PO HS@02/06/18 03/23/18 Finasteride [Proscar] 5 mg PO DAILY@02/06/18 03/23/18 QUEtiapine FUMARATE [SEROquel] 25 - 50 mg PO HS@02/06/18 03/23/18 Tamsulosin [Flomax] 0.4 mg PO BID@02/06/18 03/23/18 Aspirin [Adult Low Dose Aspirin EC] 81 mg PO DAILY@03/10/18 03/23/18 Benazepril HCl 20 mg PO HS@03/23/18 03/23/18 Previous Rx's Medication Instructions Recorded Cephalexin [Keflex] 500 mg PO Q6HR #28 cap 03/14/18 Allergies Allergy/AdvReac Type Severity Reaction Status Date / Time No Known Allergies Allergy Verified 03/23/18 13:55 Review of Systems ROS Statement: Those systems with pertinent positive or pertinent negative responses have been documented in the HPI. ROS Other: All systems not noted in ROS Statement are negative. Past Medical History Past Medical History: Atrial Fibrillation, Heart Failure, CVA/TIA, Dementia, Hyperlipidemia, Hypertension Additional Past Medical History / Comment(s): Recent UTI-completed ABX, recently been "choking alittle" swallowing impaired from tia, mild mental retardation, vertigo at times, SOB at times, left breast/chest mass, per caregiver was supposed to have mass removed and a heart cath but they were unable to do it because a seo engineer said, "He would have 10% chance of making it alive off the table due to his heart function." History of Any Multi-Drug Resistant Organisms: None Reported Past Surgical History: Unable to Obtain Additional Past Surgical History / Comment(s): Bilateral cataracts removed with lens implants, teeth extracted. facial reconstruction, Past Anesthesia/Blood Transfusion Reactions: No Reported Reaction Past Psychological History: Anxiety, Depression, PTSD, Schizophrenia Smoking Status: Former smoker Past Alcohol Use History: None Reported Past Drug Use History: None Reported - Past Family History Father History Unknown: Yes Family Medical History: Unable to Obtain Mother History Unknown: Yes Family Medical History: Blood Disorder Additional Family Medical History / Comment(s): Mother had Factor 8 disease and was a bleeder. General Exam - General Exam Comments Initial Comments: GENERAL: Patient is well-developed and well-nourished. Patient is nontoxic and well- hydrated and is in no acute distress. ENT: Neck is soft and supple. No significant lymphadenopathy is noted. Oropharynx is clear. Moist mucous membranes. Neck has full range of motion without eliciting any pain. EYES: The sclera were anicteric and conjunctiva were pink and moist. Extraocular movements were intact and pupils were equal round and reactive to light. Eyelids were unremarkable. PULMONARY: Unlabored respirations. Good breath sounds bilaterally. No audible rales rhonchi or wheezing was noted. CARDIOVASCULAR: There is a regular rate and rhythm without any murmurs gallops or rubs. ABDOMEN: Soft and nontender with normal bowel sounds. No palpable organomegaly was noted. There is no palpable pulsatile mass. SKIN: Skin is clear with no lesions or rashes and otherwise unremarkable. NEUROLOGIC: Patient is alert and oriented 2. Cranial nerves II through XII are grossly intact. Motor and sensory are also intact. Normal speech, volume and content. Symmetrical smile. According to the caregiver patient is at his baseline. MUSCULOSKELETAL: Normal extremities with adequate strength and full range of motion. No lower extremity swelling or edema. No calf tenderness. LYMPHATICS: No significant lymphadenopathy is noted Limitations: altered mental status, physical limitation Course Vital Signs 03/23/18 03/23/18 13:32 14:08 Temperature 96.9 F L Pulse Rate 72 Pulse Rate [ 76 Sitting Manager Account Management] Pulse Rate [ 77 Standing Manager Account Management ] Pulse Rate [ 71 Supine Manager Account Management] Respiratory 18 Rate Blood Pressure 140/99 Blood Pressure 118/66 [Right Arm Sitting] Blood Pressure 114/70 [Right Arm Standing] Blood Pressure 118/65 [Right Arm Supine] O2 Sat by Pulse 93 L Oximetry Medical Decision Making - Medical Decision Making EKG shows a normal sinus rhythm at 70 bpm DC interval 224 tresses 86 Q-T intervals 428 QTC is 462. Patient's EKG does not show any ST segment elevation or depression Patient episode of diaphoresis so a second EKG was done EKG shows normal sinus rhythm at 67 bpm DC interval 236 QRS is 96 Q-T intervals 436 QTC is 460. Patient's EKG shows no ST segment elevation or depression or T wave abnormalities are noted. Chest x-ray shows no acute abnormality. CT of the brain shows no acute abnormality. I spoke with Dr. Glover he agreed to admit the patient I admitted the patient wrote admitting orders and consult to cardiology. - Lab Data Result diagrams: 03/23/18 14:16 03/23/18 14:16 Lab Results 03/23/18 03/23/18 03/23/18 Range/Units 14:16 14:16 14:16 WBC 8.4 (3.8-10.6) k/uL RBC 3.80 L (4.30-5.90) m/uL Hgb 11.5 L (13.0-17.5) gm/dL Hct 36.3 L (39.0-53.0) % MCV 95.3 (80.0-100.0) fL MCH 30.2 (25.0-35.0) pg MCHC 31.7 (31.0-37.0) g/dL RDW 18.5 H (11.5-15.5) % Plt Count 430 (150-450) k/uL Neutrophils % 69 % Lymphocytes % 11 % Monocytes % 10 % Eosinophils % 7 % Basophils % 1 % Neutrophils # 5.9 (1.3-7.7) k/uL Lymphocytes # 1.0 (1.0-4.8) k/uL Monocytes # 0.8 (0-1.0) k/uL Eosinophils # 0.6 (0-0.7) k/uL Basophils # 0.1 (0-0.2) k/uL Hypochromasia Slight Anisocytosis Slight Macrocytosis Slight PT (9.0-12.0) sec INR (<1.2) APTT (22.0-30.0) sec Sodium 133 L (137-145) mmol/L Potassium 4.5 (3.5-5.1) mmol/L Chloride 95 L (98-107) mmol/L Carbon Dioxide 29 (22-30) mmol/L Anion Gap 9 mmol/L BUN 21 H (9-20) mg/dL Creatinine 1.05 (0.66-1.25) mg/dL Est GFR (CKD-EPI)AfAm 81 (>60 ml/min/1.73 sqM) Est GFR (CKD-EPI)NonAf 70 (>60 ml/min/1.73 sqM) Glucose 93 (74-99) mg/dL Calcium 9.0 (8.4-10.2) mg/dL Total Bilirubin 0.5 (0.2-1.3) mg/dL AST 19 (17-59) U/L ALT 22 (21-72) U/L Alkaline Phosphatase 135 H (38-126) U/L Total Creatine Kinase 21 L (55-170) U/L CK-MB (CK-2) 1.1 (0.0-2.4) ng/mL CK-MB (CK-2) Rel Index 5.2 Troponin I <0.012 (0.000-0.034) ng/mL Total Protein 6.4 (6.3-8.2) g/dL Albumin 3.3 L (3.5-5.0) g/dL Urine Color Urine Appearance (Clear) Urine pH (5.0-8.0) Ur Specific [place] (1.001-1.035) Urine Protein (Negative) Urine Glucose (UA) (Negative) Urine Ketones (Negative) Urine Blood (Negative) Urine Nitrite (Negative) Urine Bilirubin (Negative) Urine Urobilinogen (<2.0) mg/dL Ur Leukocyte Esterase (Negative) 03/23/18 03/23/18 Range/Units 14:16 16:17 WBC (3.8-10.6) k/uL RBC (4.30-5.90) m/uL Hgb (13.0-17.5) gm/dL Hct (39.0-53.0) % MCV (80.0-100.0) fL MCH (25.0-35.0) pg MCHC (31.0-37.0) g/dL RDW (11.5-15.5) % Plt Count (150-450) k/uL Neutrophils % % Lymphocytes % % Monocytes % % Eosinophils % % Basophils % % Neutrophils # (1.3-7.7) k/uL Lymphocytes # (1.0-4.8) k/uL Monocytes # (0-1.0) k/uL Eosinophils # (0-0.7) k/uL Basophils # (0-0.2) k/uL Hypochromasia Anisocytosis Macrocytosis PT 10.1 (9.0-12.0) sec INR 1.0 (<1.2) APTT 27.1 (22.0-30.0) sec Sodium (137-145) mmol/L Potassium (3.5-5.1) mmol/L Chloride (98-107) mmol/L Carbon Dioxide (22-30) mmol/L Anion Gap mmol/L BUN (9-20) mg/dL Creatinine (0.66-1.25) mg/dL Est GFR (CKD-EPI)AfAm (>60 ml/min/1.73 sqM) Est GFR (CKD-EPI)NonAf (>60 ml/min/1.73 sqM) Glucose (74-99) mg/dL Calcium (8.4-10.2) mg/dL Total Bilirubin (0.2-1.3) mg/dL AST (17-59) U/L ALT (21-72) U/L Alkaline Phosphatase (38-126) U/L Total Creatine Kinase (55-170) U/L CK-MB (CK-2) (0.0-2.4) ng/mL CK-MB (CK-2) Rel Index Troponin I (0.000-0.034) ng/mL Total Protein (6.3-8.2) g/dL Albumin (3.5-5.0) g/dL Urine Color Yellow Urine Appearance Clear (Clear) Urine pH 6.5 (5.0-8.0) Ur Specific [place] 1.014 (1.001-1.035) Urine Protein Negative (Negative) Urine Glucose (UA) Negative (Negative) Urine Ketones Negative (Negative) Urine Blood Negative (Negative) Urine Nitrite Negative (Negative) Urine Bilirubin Negative (Negative) Urine Urobilinogen 2.0 (<2.0) mg/dL Ur Leukocyte Esterase Negative (Negative) Disposition Clinical Impression: TIA (transient ischemic attack) Disposition: ADMITTED IP TO THIS HOSP Referrals: Elliot Wolf MD [Primary Care Provider] - 1-2 days Time of Disposition: 16:52
[2018-03-23 14:37] LABS: Albumin 3.3 g/dL (3.5-5.0); Potassium 4.5 mmol/L (3.5-5.1); Total Bilirubin 0.5 mg/dL (0.2-1.3); Total Protein 6.4 g/dL (6.3-8.2)
[2018-03-23 14:39] LABS: Partial Thromboplastin Time 27.1 sec (22.0-30.0); Prothrombin Time 10.1 sec (9.0-12.0)
[2018-03-23 14:47] LABS: Creatine Kinase 21 U/L (55-170)
[2018-03-23 14:51] LABS: Anisocytosis Slight; Basophils # (A) 0.1 k/uL (0-0.2); Basophils % (A) 1 %; Eosinophils # (A) 0.6 k/uL (0-0.7); Eosinophils % (A) 7 %; HCT 36.3 % (39.0-53.0); HGB 11.5 gm/dL (13.0-17.5); Hypochromasia Slight; Lymphocytes % (A) 11 %; MCH 30.2 pg (25.0-35.0); MCHC 31.7 g/dL (31.0-37.0); MCV 95.3 fL (80.0-100.0); Macrocytosis Slight; Mean Platelet Volume 6.5; Monocytes # (A) 0.8 k/uL (0-1.0); Monocytes % (A) 10 %; Neutrophils # (A) 5.9 k/uL (1.3-7.7); Neutrophils % (A) 69 %; Platelet Count 430 k/uL (150-450); RDW 18.5 % (11.5-15.5); WBC 8.4 k/uL (3.8-10.6)
--- NOTE | 2018-03-23 14:59 | CT ---
EXAMINATION TYPE: CT brain wo con DATE OF EXAM: 03/23/2018 COMPARISON: 03/10/2018 HISTORY: weakness, slurred speech, ams CT DLP: 1308 mGycm Automated exposure control for dose reduction was used. FINDINGS: There is agenesis of the corpus callosum. There is cerebral atrophy. There is no mass effect nor midl ine shift. There is no sign of intracranial hemorrhage. Calvarium is intact. Periventricular low attenuation is suggestive of remote microvascular ischemia. Nasal septal deviatio n noted. Intracranial atherosclerotic changes seen. IMPRESSION: NO ACUTE HEMORRHAGE OR MASS EFFECT. 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 IF THERE IS CONCERN FOR ACUTE ISCHEMIA CONSIDER FOLLOW-UP MRI CLINICALLY WARRANTED.
[2018-03-23 15:00] LABS: Creatine Kinase MB 1.1 ng/mL (0.0-2.4); Troponin I <0.012 ng/mL (0.000-0.034)
--- NOTE | 2018-03-23 16:00 | XR ---
EXAMINATION TYPE: XR chest 2V DATE OF EXAM: 03/23/2018 COMPARISON: 03/10/[address] 03/10/2018. HISTORY: 72-year-old male with hypertensive, confusion, altered mental status TECHNIQUE: Frontal and lateral views FINDINGS: Heart borderline enlarged. Similar ectatic thoracic aorta. No consolidation or pleural effusion. IMPRESSION: Similar aneurysmal thoracic aorta. No acute cardiopulmonary process.
[2018-03-23 16:32] LABS: Appearance,Urine Clear (Clear); Bilirubin,Urine Negative (Negative); Blood,Urine Negative (Negative); Color,Urine Yellow; Glucose,Urine (UA) Negative (Negative); Ketones,Urine Negative (Negative); Leukocyte Esterase,Urine Negative (Negative); Nitrite,Urine Negative (Negative); PH, Urine 6.5 (5.0-8.0); Protein,Urine Negative (Negative); Specific Gravity,Urine 1.014 (1.001-1.035)
[2018-03-23] MEDS ORDERED: ACETAMINOPHEN TAB 325 MG TAB PO STA (18:49)
[2018-03-23] MEDS: DULoxetine HCL 60 MG CAPSULE.DR PO SCH (23:54)
[2018-03-23] MEDS: TAMSULOSIN 0.4 MG CAP.ER.24H PO SCH (23:54)
[2018-03-23] MEDS: busPIRone HCl 10 MG TAB PO SCH (23:56)
[2018-03-24] MEDS: ATORVASTATIN 20 MG TAB PO SCH ×2 (00:12→19:25)
[2018-03-24] MEDS: LISINOPRIL 20 MG TAB PO SCH ×2 (00:12→19:29)
[2018-03-24] MEDS: CLOPIDOGREL 75 MG TAB PO SCH ×2 (00:12→19:27)
[2018-03-24] MEDS: TAMSULOSIN 0.4 MG CAP.ER.24H PO SCH ×3 (00:12→19:31)
[2018-03-24] MEDS: DULoxetine HCL 60 MG CAPSULE.DR PO SCH ×3 (00:12→19:28)
[2018-03-24] MEDS: DIVALPROEX ER 250 MG TAB.ER.24H PO SCH ×2 (00:13→19:27)
[2018-03-24] MEDS: ISOSORBIDE MONONITRATE ER 30 MG TAB.ER.24H PO SCH ×2 (00:13→19:29)
[2018-03-24] MEDS: busPIRone HCl 10 MG TAB PO SCH ×4 (00:13→19:26)
[2018-03-24] MEDS: LORATADINE 10 MG TAB PO SCH ×2 (00:14→19:30)
[2018-03-24 01:37] LABS: Cholesterol 99 mg/dL (<200); HDL Cholesterol 45 mg/dL (40-60); LDL Cholesterol,Calculated 32 mg/dL (0-99); Triglycerides 112 mg/dL (<150)
[2018-03-24] MEDS ORDERED: FUROSEMIDE 20 MG TAB PO SCH (08:00)
[2018-03-24] MEDS: DIVALPROEX SPRINKLE 125 MG CAP.SPRINK PO SCH (08:28)
[2018-03-24] MEDS: METOPROLOL SUCCINATE (ER) 50 MG TAB.ER.24H PO SCH (08:29)
[2018-03-24] MEDS: FINASTERIDE 5 MG TAB PO SCH (08:29)
[2018-03-24] MEDS: CLOTRIMAZOLE 1% CREAM 15 GM TUBE TOPICAL SCH (12:01)
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
[2018-03-24] MEDS: ASPIRIN 81 MG PO SCH (19:25)
[2018-03-24] MEDS: DIVALPROEX 250 MG TABLET.DR PO SCH (19:28)
[2018-03-24] MEDS: QUEtiapine 25 MG TAB PO SCH (19:30)
--- NOTE | 2018-03-24 19:32 | US ---
EXAMINATION TYPE: US carotid duplex BILAT DATE OF EXAM: 03/24/2018 COMPARISON: NONE CLINICAL HISTORY: TIA. EXAM MEASUREMENTS: RIGHT: Peak Systolic Velocity (PSV) cm/sec ----- Right CCA: 58.1 ----- Right ICA: 71.2 ----- Right ECA: 89.8 ICA/CCA ratio: 1.2 RIGHT: End Diastole cm/sec ----- Right CCA: 17.5 ----- Right ICA: 11.0 ----- Right ECA: 16.5 LEFT: Peak Systolic Velocity (PSV) cm/sec ----- Left CCA: 68.0 ----- Left ICA: 70.1 ----- Left ECA: 94.8 ICA/CCA ratio: 1.0 LEFT: End Diastole cm/sec ----- Left CCA: 13.1 ----- Left ICA: 11.0 ----- Left ECA: 12.9 VERTEBRALS (direction of flow): Right Vertebral: Antegrade Left Vertebral: Antegrade Rhythm: Normal Severe atherosclerotic changes with no significant velocity elevations. IMPRESSION: Atherosclerotic plaque formation. Images and Measurements suggest less than 50% stenosis in both internal carotid arteries. There is antegrade flow in the vertebral arteries. No adverse c hange compared to previous exam. Criteria for Assigning % of Stenosis / Diameter reduction (Estimation based on the indirect measurements of the internal carotid artery velocities (ICA PSV). 1. Normal (no stenosis)=ICA PSV < 125 cm/s: ratio < 2.0: ICA EDV<40 cm/s. 2. Less than 50% stenosis=ICA PSV < 125 cm/s: ratio < 2.0: ICA EDV<40 cm/s. 3. 50 to 69% stenosis=ICA PSV of 125 to 230 cm/s: ration 2.0 ? 4.0: ICA EDV 40-100 cm/s. 4. Greater than 70% stenosis to near occlusion= ICA PSV > 230 cm/s: ratio > 4.0: ICA EDV > 100 cm/s. 5. Near occlusion= ICA PSV velocities may be low or undetectable: variable ratio and ICA EDV. 6. Total occlusion=unable to detect flow.
[2018-03-25] MEDS: DULoxetine HCL 60 MG CAPSULE.DR PO SCH ×2 (08:37→20:47)
[2018-03-25] MEDS: METOPROLOL SUCCINATE (ER) 50 MG TAB.ER.24H PO SCH (08:37)
[2018-03-25] MEDS: CLOTRIMAZOLE 1% CREAM 15 GM TUBE TOPICAL SCH (08:38)
[2018-03-25] MEDS: FINASTERIDE 5 MG TAB PO SCH (08:38)
[2018-03-25] MEDS: TAMSULOSIN 0.4 MG CAP.ER.24H PO SCH ×2 (08:38→20:47)
[2018-03-25] MEDS: busPIRone HCl 10 MG TAB PO SCH ×2 (08:38→20:46)
[2018-03-25] MEDS: DIVALPROEX SPRINKLE 125 MG CAP.SPRINK PO SCH (08:38)
--- NOTE | 2018-03-25 15:41 | CDI ---
Last Revision, June 2017 Documentation Clarification Form Date: 03/25/2018 3:37:13 PM From: Nicole Daly RN, CCDS Admit Date: 03/24/2018 3:52:00 PM Patient Name: Alireza Alas Visit Number: [id number] ATTENTION: The Clinical Documentation Specialists (CDI) and [facility] Coding Staff appreciate your assistance in clarifying documentation. Please respond to the clarification below the line at the bottom and electronically sign. The CDI & [facility] Coding staff will review the response and follow-up if needed. Please note: Queries are made part of the Legal Health Record. If you have any questions, please contact the author of this message via ITS. Lyndon Ochoa MD Atrial fibrillation is documented in the H&P and Consults and requires further specificity. History/Risk Factors: Atrial Fib, CVA/TIA, HTN, dementia, HTN, CHF Clinical Indicators: EKG/telemetry: NSR w/o ST elevation or depression Treatment: Toprol XL 50 mg QD Plavix 75 mg PO Q HS In your professional opinion, can you please clarify the type of atrial fibrillation, if known? Chronic/Permanent Paroxysmal Persistent Other, please specify Unable to determine Please continue to document in your progress notes and discharge summary in order to capture severity of illness and risk of mortality. Include clinical findings that support your diagnosis. MTDD
--- NOTE | 2018-03-25 16:11 | P.PN ---
Subjective Progress Note Date: 03/25/18 Patient is a pleasant 72-year-old male who is being followed by the neurology service for TIA. Patient has history of developmental delay, history of closed head injury, dementia, atrial fibrillation, CVA/TIA, and hypertension. Patient lives in a fdc. Patient was brought to [facility] after having an episode of confusion. Caregiver also noted patient to have a right-sided facial droop. Caregiver states patient did not recognize her which was unlike him. Symptoms resolved within 10 minutes. Patient is currently back to baseline. No further neurological symptoms reported. No return of confusion or facial droop. Patient was recently hospitalized approximately 1-2 weeks ago for urinary tract infection. Patient had episode with symptoms consistent with TIA at that time. Computed tomography scan of the brain last admission showed no acute process. Computed tomography scan of the brain this admission also shows no acute process. Due to second episode of possible TIA, I will order an MRI of the brain. Staff informs me we are awaiting clearance from court appointed guardian to go ahead and perform the MRI. At the time of my evaluation, patient is resting comfortably in bed and appears to be in no acute distress. Objective - Vital Signs Vital signs: Vital Signs Temp 97.1 F L 03/25/18 12:00 Pulse 68 03/25/18 12:00 Resp 18 03/25/18 12:00 BP 111/80 03/25/18 12:00 Pulse Ox 96 03/25/18 12:00 Intake & Output 03/24/18 03/25/18 03/25/18 18:59 06:59 18:59 Intake Total 10 180 Balance 10 180 Weight 51.3 kg 52.1 kg Intake: IV 10 0.9 10 Oral 180 Other: Voiding Method Bedside Commode Bedside Commode Diaper Diaper Incontinent Incontinent # Voids 2 2 # Bowel Movements 1 - Exam PHYSICAL EXAM: GENERAL APPEARANCE: Patient is a male who appears to be in no acute distress. Patient has history of developmental delay HEENT: Normocephalic, atraumatic, no obvious facial asymmetry is seen. Neck is supple with no masses felt. CARDIOVASCULAR: Regular rate and rhythm. ABDOMEN: Nontender, nondistended. EXTREMITIES: Show no edema or clubbing. NEUROLOGICAL EXAM: Patient is awake, alert, and oriented 2. Patient does not know what year this is. Speech is dysarthric due to patient being edentulous. Language is normal. Strength is full in all 4 extremities. Sensory exam to light touch is normal in all 4 extremities. No obvious facial asymmetry seen on cranial nerve testing. Patient has right pronator drift. No tremors or seizure-like activity noted. - Labs CBC & Chem 7: 03/23/18 14:16 03/23/18 14:16 Assessment and Plan Plan: Impression: 1. Transient ischemic attack with transient episode of right-sided facial droop and confusion, resolved 2. Recent urinary tract infection 3. History of mental disability, lives in a fdc 4. History of recent hip fracture and repair 5. Hypertension 6. Hyperlipidemia 7. Dementia Recommendation: It does appear patient had a transient ischemic attack with transient episode of left facial droop and confusion. Both symptoms have resolved. Caregiver states patient is back to baseline. Patient had similar episode approximately a week ago when he was being treated for urinary tract infection. Computed tomography scan of the brain showed no acute process. Due to patient's history of CVA/TIA and recurrent symptoms twice in the last 2 weeks , I will order an MRI of the brain. MRI of the brain has not yet been performed due to needing permission from court-appointed guardian. Carotid Dopplers showed less than 50% stenosis in both internal carotid arteries. EEG was done and results are pending. Serum homocystine level was normal. I recommend physical therapy, occupational therapy, and speech therapy to continue. I recommend continuing aspirin and Plavix. Continue statin therapy. Maintain blood pressure control. Continue neurological checks. I will continue to follow with you. Further recommendations to follow. Thank you for allowing me to participate in the care of your patient. If you have any questions, feel free to contact me. I performed an examination of the patient and discussed the management with the UNARMED SECURITY OFFICER. I have reviewed the UNARMED SECURITY OFFICER notes and agree with the findings and plan of care.
[2018-03-25] MEDS: CLOPIDOGREL 75 MG TAB PO SCH (20:46)
[2018-03-25] MEDS: DIVALPROEX 250 MG TABLET.DR PO SCH (20:46)
[2018-03-25] MEDS: ATORVASTATIN 20 MG TAB PO SCH (20:46)
[2018-03-25] MEDS: ASPIRIN 81 MG PO SCH (20:46)
[2018-03-25] MEDS: DIVALPROEX ER 250 MG TAB.ER.24H PO SCH (20:46)
[2018-03-25] MEDS: ISOSORBIDE MONONITRATE ER 30 MG TAB.ER.24H PO SCH (20:47)
[2018-03-25] MEDS: LISINOPRIL 20 MG TAB PO SCH (20:47)
[2018-03-25] MEDS: QUEtiapine 25 MG TAB PO SCH (20:47)
[2018-03-25] MEDS: LORATADINE 10 MG TAB PO SCH (20:47)
--- NOTE | 2018-03-25 23:14 | P.PN ---
Subjective Progress Note Date: 03/25/18 Principal diagnosis: TIA Patient is a 72-year-old male with a known history of mental disability, hypertension, hyperlipidemia, atrial fibrillation and history of CVA/TIA with residual right-sided weakness was brought to the hospital as the caregiver concerned about right-sided facial droop and patient was confused before coming to the hospital. Patient was having physical therapy and caregiver noticed that he had new right-sided facial droop and was also confused and could not recognize her. Patient was also having low blood pressure as a time and amylase was called. Patient was admitted to hospital for TIA possible and swallow evaluation was ordered.. Patient does need some assistance with feeding. No recent fever or chills. No cough or sputum production or shortness of breath or chest pain. No nausea vomiting or diarrhea. No bladder or bowel incontinence. Facial droop was completely resolved within 10 minutes and patient is back to baseline. Neurology was consulted for further evaluation. Laboratory data showed sodium 133 and chloride 95 BUN 23 EKG showed normal sinus rhythm CT head no acute hemorrhage or mass effect. 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 Chest x-ray showed similar aneurysmal thoracic Aorta. No acute cardiopulmonary process. 03/25/2018 Patient denied any comes of chest pain or shortness of breath. Left facial droop and confusion is much improved now. Patient is at baseline as per caregiver. Due to history of CVA/TIA and recurrent symptoms, MRI was ordered as per neurology's recommendations. MRI of the brain has not yet been performed due to needing permission from court-appointed guardian. Carotid Dopplers showed less than 50% stenosis in both internal carotid arteries. EEG was done and results are pending. PTOT and speech therapy was consulted. No nausea vomiting or abdominal pain. No chest pain or shortness of breath. No fever no chills. Current medications reviewed. Objective - Vital Signs Vital signs: Vital Signs Temp 97.4 F L 03/25/18 20:00 Pulse 78 03/25/18 20:00 Resp 18 03/25/18 20:00 BP 133/79 03/25/18 20:00 Pulse Ox 96 03/25/18 20:00 Intake & Output 03/25/18 03/25/18 03/26/18 06:59 18:59 06:59 Intake Total 10 580 10 Balance 10 580 10 Weight 52.1 kg Intake: IV 10 10 0.9 10 10 Oral 580 Other: Voiding Method Bedside Commode Bedside Commode Diaper Incontinent # Voids 2 - Labs CBC & Chem 7: 03/23/18 14:16 03/23/18 14:16 Assessment and Plan Assessment: Right-sided facial droop with possible TIA. Resolved now. Recurrent symptoms twice during last 2 weeks. Dehydration and volume depletion Confusion possible metabolic encephalopathy Recent urinary tract infection currently on Keflex at home History of CVA/TIA Thoracic aorta aneurysm. No new changes. Hypertension Hyperlipidemia Mentally challenged dementia Anxiety/depression Previous history of smoking DVT prophylaxis Plan: Patient will be continued on telemetry monitoring and increase oral intake. Neurology is following. Continue with aspirin and Plavix and statins. Will hold Lasix. Monitor blood pressure and follow up closely. MRI of the brain was ordered pending authorization from legal guardian. Continue with neuro checks and blood pressure medications. Prognosis is guarded. Time with Patient: Greater than 30
[2018-03-26 06:48] LABS: Anisocytosis Slight; Basophils # (A) 0.1 k/uL (0-0.2); Basophils % (A) 1 %; Eosinophils # (A) 0.6 k/uL (0-0.7); Eosinophils % (A) 5 %; HCT 30.8 % (39.0-53.0); Lymphocytes # (A) 1.1 k/uL (1.0-4.8); Lymphocytes % (A) 9 %; MCH 30.2 pg (25.0-35.0); MCHC 32.2 g/dL (31.0-37.0); MCV 93.8 fL (80.0-100.0); Mean Platelet Volume 6.4; Monocytes # (A) 1.3 k/uL (0-1.0); Monocytes % (A) 11 %; Neutrophils # (A) 8.2 k/uL (1.3-7.7); Neutrophils % (A) 72 %; Platelet Count 345 k/uL (150-450); RBC 3.29 m/uL (4.30-5.90); WBC 11.4 k/uL (3.8-10.6)
[2018-03-26 07:06] LABS: Calcium 8.8 mg/dL (8.4-10.2)
[2018-03-26 07:14] LABS: HGB 9.9 gm/dL (13.0-17.5)
[2018-03-26] MEDS: busPIRone HCl 10 MG TAB PO SCH ×2 (08:26→19:54)
[2018-03-26] MEDS: CLOTRIMAZOLE 1% CREAM 15 GM TUBE TOPICAL SCH (08:26)
[2018-03-26] MEDS: DULoxetine HCL 60 MG CAPSULE.DR PO SCH ×2 (08:26→19:56)
[2018-03-26] MEDS: FINASTERIDE 5 MG TAB PO SCH (08:26)
[2018-03-26] MEDS: METOPROLOL SUCCINATE (ER) 50 MG TAB.ER.24H PO SCH (08:26)
[2018-03-26] MEDS: DIVALPROEX SPRINKLE 125 MG CAP.SPRINK PO SCH (08:26)
[2018-03-26] MEDS: TAMSULOSIN 0.4 MG CAP.ER.24H PO SCH ×2 (08:26→20:11)
--- NOTE | 2018-03-26 10:34 | CDI ---
Last Revision, June 2017 Documentation Clarification Form Date: 03/26/2018 10:11:03 AM From: Nicole Daly RN, CCDS Admit Date: 03/24/2018 3:52:00 PM Patient Name: Alireza Alas Visit Number: [id number] ATTENTION: The Clinical Documentation Specialists (CDI) and [facility] Coding Staff appreciate your assistance in clarifying documentation. Please respond to the clarification below the line at the bottom and electronically sign. The CDI & [facility] Coding staff will review the response and follow-up if needed. Please note: Queries are made part of the Legal Health Record. If you have any questions, please contact the author of this message via ITS. Lyndon Ochoa MD A diagnosis of anemia lacks specificity to accurately reflect your patients severity of condition and clarification is needed. History/Risk Factors: Atrial Fib, CHF Clinical indicators: Hemoglobin: 11.5/9.9 Hematocrit: 36.3/30.8 Treatment: Monitoring labs ASA 81 mg PO QD In order to capture the severity of condition, please clarify the type of anemia and etiology if known: Acute on chronic blood loss anemia Chronic blood loss anemia Iron deficiency anemia Drug induced anemia Nutritional anemia Anemia of chronic disease Unable to determine Other, please specify Please continue to document in your progress notes and discharge summary in order to capture severity of illness and risk of mortality. Include clinical findings that support your diagnosis. MTDD
--- NOTE | 2018-03-26 11:16 | EEG ---
ELECTROENCEPHALOGRAM REPORT DATE OF SERVICE: 03/25/2018 REASON FOR TESTING: Transient ischemic attack. DESCRIPTION OF THE PROCEDURE: This EEG was performed using a 21 channel digital electroencephalograph, following international 10-20 system. DESCRIPTION OF THE RECORDING: From the beginning of the tracing, with the patient's eyes closed, the background rhythm was mostly consisting of 8 Hz alpha frequency in the posterior occipital leads. No obvious asymmetry is seen. Frequent muscle and movement artifacts are seen earlier during the tracing. Photic stimulation and hyperventilation were not performed. The patient does reach stage II of sleep during the tracing and occasional sleep spindles are seen. No epileptiform discharges were seen. His EKG lead showed a regular rate and rhythm. INTERPRETATION: This asleep and awake EEG can be considered within normal limits. There was no asymmetry seen. No epileptiform discharges were noticed. The absence of epileptiform discharges does not rule out the diagnosis of epilepsy; therefore clinical correlation is recommended. BERNARD / ALICJA: [id number] /
--- NOTE | 2018-03-26 12:40 | MR ---
EXAMINATION TYPE: MR brain wo con DATE OF EXAM: 03/26/2018 COMPARISON: CT brain from 3 days ago and older CT studies. HISTORY: TIA patient admitted for weakness, altered mental status, slurred speech 3 days earlier. TECHNIQUE: Multiplanar, multisequence imaging of the brain and brainstem is performed without IV cont rast. FINDINGS: Diffusion weighted images demonstrate no evidence of a recent infarct or other diffusion abnormality. There is no worrisome extra-axial fluid collection. There is stable ventricular and sulcal prominence with degree of ventricular prominence out of proportion to degree of sulcal effacement and underlyin g hydrocephalus or colpocephaly is felt present. Degree of ventricular size is not significantly beyer ged from older CTs. Underlying hydrocephalus Prominence of third and fourth ventricles remains presen t. 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 There are scattered foci of T2 hyperintensity seen throughout the deep and periventricular white matter. Lesions are nonspecific in appearance and distribution but most likely on basis of product of chronic small vessel ischemic change in patient of this age. 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 There is enlarged posterior fossa. The craniocervical junction appears within normal limits. Normal vascular flow voids are present. Mil d mucosal thickening involving ethmoid sinuses bilaterally is present. IMPRESSION: 1. No evidence of a recent infarct. 2. There is redemonstration of background agenesis of corpus callosum. 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 There is moderate underlying chronic small vessel ischemic change felt present.
[2018-03-26] MEDS ORDERED: POLYETHYLENE GLYCOL 3350 17 GM POWD.PACK PO STA (18:02)
[2018-03-26] MEDS: ASPIRIN 81 MG PO SCH (19:54)
[2018-03-26] MEDS: ATORVASTATIN 20 MG TAB PO SCH (19:54)
[2018-03-26] MEDS: CLOPIDOGREL 75 MG TAB PO SCH (19:55)
[2018-03-26] MEDS: DIVALPROEX ER 250 MG TAB.ER.24H PO SCH (19:55)
[2018-03-26] MEDS: LISINOPRIL 20 MG TAB PO SCH (19:56)
[2018-03-26] MEDS: ISOSORBIDE MONONITRATE ER 30 MG TAB.ER.24H PO SCH (19:56)
[2018-03-26] MEDS: DIVALPROEX 250 MG TABLET.DR PO SCH (19:56)
[2018-03-26] MEDS: LORATADINE 10 MG TAB PO SCH (20:10)
--- NOTE | 2018-03-26 20:49 | P.PN ---
Subjective Progress Note Date: 03/26/18 Patient is a pleasant 72-year-old male who is being followed by the neurology service for TIA. Patient has history of developmental delay, history of closed head injury, dementia, atrial fibrillation, CVA/TIA, and hypertension. Patient lives in a snf. Patient was brought to [facility] after having an episode of confusion. Caregiver also noted patient to have a right-sided facial droop. Caregiver states patient did not recognize her which was unlike him. Symptoms resolved within 10 minutes. Patient is currently back to baseline. No further neurological symptoms reported. No return of confusion or facial droop. Patient was recently hospitalized approximately 1-2 weeks ago for urinary tract infection. Patient had episode with symptoms consistent with TIA at that time. Computed tomography scan of the brain last admission showed no acute process. Computed tomography scan of the brain this admission also shows no acute process. Due to second episode of possible TIA, I will order an MRI of the brain. Staff informs me we are awaiting clearance from court appointed guardian to go ahead and perform the MRI. At the time of my evaluation, patient is resting comfortably in bed and appears to be in no acute distress. 03/26/2018 Patient is a pleasant 72-year-old male who is being followed by the neurology service for TIA. Patient is much more awake, alert, and speech is improved. According to staff, the caregiver states patient is back at baseline. EEG was done and was normal. MRI of the brain did not show any acute abnormality. At the time of my evaluation, patient's resting comfortably in bed and appears to be in no acute distress. Objective - Vital Signs Vital signs: Vital Signs Temp 97.0 F L 03/26/18 16:00 Pulse 78 03/26/18 16:00 Resp 18 03/26/18 16:00 BP 125/70 03/26/18 16:00 Pulse Ox 98 03/26/18 16:00 Intake & Output 03/26/18 03/26/18 03/27/18 06:59 18:59 06:59 Intake Total 10 480 Balance 10 480 Weight 52.6 kg Intake: IV 10 0.9 10 Oral 480 Other: Voiding Method Bedside Commode Bedside Commode # Voids 3 2 - Exam PHYSICAL EXAM: GENERAL APPEARANCE: Patient is a male who appears to be in no acute distress. Patient has history of developmental delay HEENT: Normocephalic, atraumatic, no obvious facial asymmetry is seen. Neck is supple with no masses felt. CARDIOVASCULAR: Regular rate and rhythm. ABDOMEN: Nontender, nondistended. EXTREMITIES: Show no edema or clubbing. NEUROLOGICAL EXAM: Patient is awake, alert, and oriented 2. Patient does not know what year this is. Speech is dysarthric due to patient being edentulous but speech is improved. Language is normal. Strength is full in all 4 extremities. Sensory exam to light touch is normal in all 4 extremities. No obvious facial asymmetry seen on cranial nerve testing. No tremors or seizure- like activity noted. - Labs CBC & Chem 7: 03/26/18 06:31 18 06:31 Labs: Abnormal Lab Results - Last 24 Hours (Table) 03/26/18 03/26/18 Range/Units 06:31 06:31 WBC 11.4 H (3.8-10.6) k/uL RBC 3.29 L (4.30-5.90) m/uL Hgb 9.9 L D (13.0-17.5) gm/dL Hct 30.8 L (39.0-53.0) % RDW 18.0 H (11.5-15.5) % Neutrophils # 8.2 H (1.3-7.7) k/uL Monocytes # 1.3 H (0-1.0) k/uL Sodium 131 L (137-145) mmol/L Chloride 97 L (98-107) mmol/L BUN 26 H (9-20) mg/dL Assessment and Plan Plan: Impression: 1. Transient ischemic attack with transient episode of right-sided facial droop and confusion, resolved 2. Recent urinary tract infection 3. History of mental disability, lives in a snf 4. History of recent hip fracture and repair 5. Hypertension 6. Hyperlipidemia 7. Dementia Recommendation: It does appear patient had a transient ischemic attack with transient episode of left facial droop and confusion. Both symptoms have resolved. Caregiver states patient is back to baseline. Patient had similar episode approximately a week ago when he was being treated for urinary tract infection. Computed tomography scan of the brain showed no acute process. Due to patient's history of CVA/TIA and recurrent symptoms twice in the last 2 weeks , MRI of the brain was ordered. 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 MRI also shows chronic small vessel ischemic changes. Carotid Dopplers showed less than 50% stenosis in both internal carotid arteries. EEG was done and was normal. Serum homocystine level was normal. I recommend continuing aspirin and Plavix. Continue statin therapy. Maintain blood pressure control. Continue neurological checks. Patient is stable from a neurological standpoint for discharge. I will continue to follow with you on an as as-needed basis. I performed an examination of the patient and discussed the management with the NEEDLE POLISHER. I have reviewed the NEEDLE POLISHER notes and agree with the findings and plan of care.
[2018-03-26] MEDS: QUEtiapine 25 MG TAB PO SCH (21:37)
--- NOTE | 2018-03-27 07:00 | XR ---
EXAMINATION TYPE: XR chest 2V DATE OF EXAM: 03/27/2018 HISTORY: shortness of breath. REFERENCE: Previous study dated 03/23/2018. FINDINGS: Heart size upper limits of normal. There is unfolding and ectasia of the thoracic aorta. Th e lungs appear clear. Pleural spaces are clear. IMPRESSION: BORDERLINE CARDIOMEGALY.
[2018-03-27] MEDS: busPIRone HCl 10 MG TAB PO SCH ×2 (08:31→20:01)
[2018-03-27] MEDS: DULoxetine HCL 60 MG CAPSULE.DR PO SCH ×2 (08:31→20:02)
[2018-03-27] MEDS: CLOTRIMAZOLE 1% CREAM 15 GM TUBE TOPICAL SCH (08:32)
[2018-03-27] MEDS: METOPROLOL SUCCINATE (ER) 50 MG TAB.ER.24H PO SCH (08:32)
[2018-03-27] MEDS: FINASTERIDE 5 MG TAB PO SCH (08:32)
[2018-03-27] MEDS: TAMSULOSIN 0.4 MG CAP.ER.24H PO SCH ×2 (08:32→20:03)
[2018-03-27 08:39] LABS: Anisocytosis Slight; Basophils # (A) 0.1 k/uL (0-0.2); Basophils % (A) 1 %; Eosinophils # (A) 0.5 k/uL (0-0.7); Eosinophils % (A) 6 %; HCT 31.8 % (39.0-53.0); HGB 10.1 gm/dL (13.0-17.5); Hypochromasia Slight; Lymphocytes # (A) 0.9 k/uL (1.0-4.8); Lymphocytes % (A) 10 %; MCHC 31.8 g/dL (31.0-37.0); MCV 97.5 fL (80.0-100.0); Macrocytosis Slight; Mean Platelet Volume 6.6; Monocytes # (A) 0.8 k/uL (0-1.0); Monocytes % (A) 10 %; Neutrophils % (A) 71 %; Platelet Count 305 k/uL (150-450); RBC 3.26 m/uL (4.30-5.90); WBC 8.4 k/uL (3.8-10.6)
[2018-03-27] MEDS: DIVALPROEX SPRINKLE 125 MG CAP.SPRINK PO SCH (09:53)
[2018-03-27] MEDS ORDERED: DOCUSATE 100 MG CAP PO PRN (12:04)
[2018-03-27] MEDS ORDERED: BISACODYL 10 MG SUPP RECTAL STA (12:06)
[2018-03-27] MEDS: ASPIRIN 81 MG PO SCH (20:00)
[2018-03-27] MEDS: DIVALPROEX 250 MG TABLET.DR PO SCH (20:01)
[2018-03-27] MEDS: CLOPIDOGREL 75 MG TAB PO SCH (20:01)
[2018-03-27] MEDS: DIVALPROEX ER 250 MG TAB.ER.24H PO SCH (20:01)
[2018-03-27] MEDS: ATORVASTATIN 20 MG TAB PO SCH (20:01)
[2018-03-27] MEDS: ISOSORBIDE MONONITRATE ER 30 MG TAB.ER.24H PO SCH (20:02)
[2018-03-27] MEDS: LISINOPRIL 20 MG TAB PO SCH (20:02)
[2018-03-27] MEDS: LORATADINE 10 MG TAB PO SCH (20:03)
[2018-03-27] MEDS: QUEtiapine 25 MG TAB PO SCH (21:34)
[2018-03-28] MEDS: DULoxetine HCL 60 MG CAPSULE.DR PO SCH ×2 (09:07→20:50)
[2018-03-28] MEDS: busPIRone HCl 10 MG TAB PO SCH ×2 (09:07→20:50)
[2018-03-28] MEDS: FINASTERIDE 5 MG TAB PO SCH (09:07)
[2018-03-28] MEDS: DIVALPROEX SPRINKLE 125 MG CAP.SPRINK PO SCH (09:07)
[2018-03-28] MEDS: METOPROLOL SUCCINATE (ER) 50 MG TAB.ER.24H PO SCH (09:08)
[2018-03-28] MEDS: TAMSULOSIN 0.4 MG CAP.ER.24H PO SCH ×2 (09:08→20:49)
[2018-03-28] MEDS: CLOTRIMAZOLE 1% CREAM 15 GM TUBE TOPICAL SCH (09:09)
--- NOTE | 2018-03-28 14:46 | P.PN ---
Subjective Progress Note Date: 03/26/18 Principal diagnosis: TIA Patient is a 72-year-old male with a known history of mental disability, hypertension, hyperlipidemia, atrial fibrillation and history of CVA/TIA with residual right-sided weakness was brought to the hospital as the caregiver concerned about right-sided facial droop and patient was confused before coming to the hospital. Patient was having physical therapy and caregiver noticed that he had new right-sided facial droop and was also confused and could not recognize her. Patient was also having low blood pressure as a time and amylase was called. Patient was admitted to hospital for TIA possible and swallow evaluation was ordered.. Patient does need some assistance with feeding. No recent fever or chills. No cough or sputum production or shortness of breath or chest pain. No nausea vomiting or diarrhea. No bladder or bowel incontinence. Facial droop was completely resolved within 10 minutes and patient is back to baseline. Neurology was consulted for further evaluation. Laboratory data showed sodium 133 and chloride 95 BUN 23 EKG showed normal sinus rhythm CT head no acute hemorrhage or mass effect. 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 Chest x-ray showed similar aneurysmal thoracic Aorta. No acute cardiopulmonary process. 03/25/2018 Patient denied any comes of chest pain or shortness of breath. Left facial droop and confusion is much improved now. Patient is at baseline as per caregiver. Due to history of CVA/TIA and recurrent symptoms, MRI was ordered as per neurology's recommendations. MRI of the brain has not yet been performed due to needing permission from court-appointed guardian. Carotid Dopplers showed less than 50% stenosis in both internal carotid arteries. EEG was done and results are pending. PTOT and speech therapy was consulted. No nausea vomiting or abdominal pain. No chest pain or shortness of breath. No fever no chills. 03/26/2018 Patient denied any complaints today. Tolerating oral diet. Baseline mental status as per the caregiver. EEG was normal. MRI of the brain did not show any acute abnormality. Patient is resting comfortably. No compressive chest pain or shortness of breath. No other acute overnight issues. Otherwise hemoglobin did drop. FOBT as ordered but patient is having constipation currently. Ordered stool softener as well. Monitor H&H. No fever no chills. Current medications reviewed. Objective - Vital Signs Vital signs: Vital Signs Temp 97.1 F L 03/26/18 09:00 Pulse 71 03/26/18 09:00 Resp 18 03/26/18 09:00 BP 95/54 03/26/18 09:00 Pulse Ox 99 03/26/18 09:00 Intake & Output 03/25/18 03/26/18 03/26/18 18:59 06:59 18:59 Intake Total 580 10 240 Balance 580 10 240 Weight 52.6 kg Intake: IV 10 0.9 10 Oral 580 240 Other: Voiding Method Bedside Commode # Voids 3 - Exam PHYSICAL EXAMINATION: Patient is lying in the bed comfortably, no acute distress, awake alert and oriented.. HEENT: Normocephalic. Neck is supple. Pupils reactive. Nostrils clear. Oral cavity is moist. Ears reveal no drainage. Neck reveals no JVD, carotid bruits, or thyromegaly. CHEST EXAMINATION: Trachea is central. Symmetrical expansion. Lung bazzi clear to auscultation and percussion. CARDIAC: Normal S1, S2 with no gallops. No murmurs ABDOMEN: Soft. Bowel sounds normal. No organomegaly. No abdominal bruits. Extremities: reveal no edema. No clubbing or cyanosis Neurologically awake, alert, oriented x2-3 with well-coordinated movements. Mentally challenged. Patient does have some right-sided weakness and right hand contractures. Skin: No rash or skin lesions. Psychiatric: Coperative. Could not be assessed completely. Musculoskeletal: No joint swelling or deformity. Normal range of motion. - Labs CBC & Chem 7: 03/27/18 08:17 03/26/18 06:31 Labs: Abnormal Lab Results - Last 24 Hours (Table) 03/26/18 03/26/18 Range/Units 06:31 06:31 WBC 11.4 H (3.8-10.6) k/uL RBC 3.29 L (4.30-5.90) m/uL Hgb 9.9 L D (13.0-17.5) gm/dL Hct 30.8 L (39.0-53.0) % RDW 18.0 H (11.5-15.5) % Neutrophils # 8.2 H (1.3-7.7) k/uL Monocytes # 1.3 H (0-1.0) k/uL Sodium 131 L (137-145) mmol/L Chloride 97 L (98-107) mmol/L BUN 26 H (9-20) mg/dL Assessment and Plan Assessment: Right-sided facial droop with possible TIA. Resolved now. Recurrent symptoms twice during last 2 weeks. MRA negative. Dehydration and volume depletion. Improved Anemia possible chronic blood loss. Confusion possible metabolic encephalopathy. Improved Recent urinary tract infection currently on Keflex at home History of CVA/TIA Thoracic aorta aneurysm. No new changes. Hypertension Hyperlipidemia Mentally challenged dementia Anxiety/depression Previous history of smoking DVT prophylaxis Plan: Patient will be continued on telemetry monitoring and increase oral intake. Neurology is following. Continue with aspirin and Plavix and statins. Will hold Lasix. Monitor blood pressure and follow up closely. MRI of the brain showed no acute abnormality. Patient is back to baseline. Continue with neuro checks and blood pressure medications. Prognosis is guarded. Time with Patient: Greater than 30
--- NOTE | 2018-03-28 14:47 | P.PN ---
Subjective Progress Note Date: 03/27/18 Principal diagnosis: TIA Patient is a 72-year-old male with a known history of mental disability, hypertension, hyperlipidemia, atrial fibrillation and history of CVA/TIA with residual right-sided weakness was brought to the hospital as the caregiver concerned about right-sided facial droop and patient was confused before coming to the hospital. Patient was having physical therapy and caregiver noticed that he had new right-sided facial droop and was also confused and could not recognize her. Patient was also having low blood pressure as a time and amylase was called. Patient was admitted to hospital for TIA possible and swallow evaluation was ordered.. Patient does need some assistance with feeding. No recent fever or chills. No cough or sputum production or shortness of breath or chest pain. No nausea vomiting or diarrhea. No bladder or bowel incontinence. Facial droop was completely resolved within 10 minutes and patient is back to baseline. Neurology was consulted for further evaluation. Laboratory data showed sodium 133 and chloride 95 BUN 23 EKG showed normal sinus rhythm CT head no acute hemorrhage or mass effect. 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 Chest x-ray showed similar aneurysmal thoracic Aorta. No acute cardiopulmonary process. 03/25/2018 Patient denied any comes of chest pain or shortness of breath. Left facial droop and confusion is much improved now. Patient is at baseline as per caregiver. Due to history of CVA/TIA and recurrent symptoms, MRI was ordered as per neurology's recommendations. MRI of the brain has not yet been performed due to needing permission from court-appointed guardian. Carotid Dopplers showed less than 50% stenosis in both internal carotid arteries. EEG was done and results are pending. PTOT and speech therapy was consulted. No nausea vomiting or abdominal pain. No chest pain or shortness of breath. No fever no chills. 03/26/2018 Patient denied any complaints today. Tolerating oral diet. Baseline mental status as per the caregiver. EEG was normal. MRI of the brain did not show any acute abnormality. Patient is resting comfortably. No compressive chest pain or shortness of breath. No other acute overnight issues. Otherwise hemoglobin did drop. FOBT as ordered but patient is having constipation currently. Ordered stool softener as well. Monitor H&H. No fever no chills. 03/27/2018 Patient is tolerating oral diet. Denied chest pain or short of breath. No fever no chills. Hemoglobin is fairly stable at 10.1. Patient still constipated. Stroke workup negative so far. Neurology has seen the patient. Patient be continued on current management and anticipate discharge on Thursday. Current medications reviewed. Objective - Vital Signs Vital signs: Vital Signs Temp 96.6 F L 03/27/18 12:00 Pulse 70 03/27/18 12:00 Resp 20 03/27/18 12:00 BP 97/56 03/27/18 12:00 Pulse Ox 99 03/27/18 12:00 Intake & Output 03/26/18 03/27/18 03/27/18 18:59 06:59 18:59 Intake Total 480 240 480 Output Total 300 Balance 480 -60 480 Weight 52.2 kg Intake: Oral 480 240 480 Output: Urine 300 Other: Voiding Method Bedside Commode Toilet Toilet Diaper Diaper # Voids 2 1 2 - Exam PHYSICAL EXAMINATION: Patient is lying in the bed comfortably, no acute distress, awake alert and oriented.. HEENT: Normocephalic. Neck is supple. Pupils reactive. Nostrils clear. Oral cavity is moist. Ears reveal no drainage. Neck reveals no JVD, carotid bruits, or thyromegaly. CHEST EXAMINATION: Trachea is central. Symmetrical expansion. Lung bazzi clear to auscultation and percussion. CARDIAC: Normal S1, S2 with no gallops. No murmurs ABDOMEN: Soft. Bowel sounds normal. No organomegaly. No abdominal bruits. Extremities: reveal no edema. No clubbing or cyanosis Neurologically awake, alert, oriented x2-3 with well-coordinated movements. Mentally challenged. Patient does have some right-sided weakness and right hand contractures. Skin: No rash or skin lesions. Psychiatric: Coperative. Could not be assessed completely. Musculoskeletal: No joint swelling or deformity. Normal range of motion. - Labs CBC & Chem 7: 03/27/18 08:17 03/26/18 06:31 Labs: Abnormal Lab Results - Last 24 Hours (Table) 03/27/18 Range/Units 08: RBC 3.26 L (4.30-5.90) m/uL Hgb 10.1 L (13.0-17.5) gm/dL Hct 31.8 L (39.0-53.0) % RDW 18.0 H (11.5-15.5) % Lymphocytes # 0.9 L (1.0-4.8) k/uL Assessment and Plan Assessment: Right-sided facial droop with possible TIA. Resolved now. Recurrent symptoms twice during last 2 weeks. MRA negative. Dehydration and volume depletion. Improved Anemia possible chronic blood loss. Confusion possible metabolic encephalopathy. Improved Recent urinary tract infection currently on Keflex at home History of CVA/TIA Thoracic aorta aneurysm. No new changes. Hypertension Hyperlipidemia Mentally challenged dementia Anxiety/depression Previous history of smoking DVT prophylaxis Plan: Patient will be continued on telemetry monitoring and increase oral intake. Neurology is following. Continue with aspirin and Plavix and statins. Will hold Lasix. Monitor blood pressure and follow up closely. MRI of the brain showed no acute abnormality. Patient is back to baseline. Continue with neuro checks and blood pressure medications. Prognosis is guarded. Time with Patient: Greater than 30
--- NOTE | 2018-03-28 14:49 | P.PN ---
Subjective Progress Note Date: 03/28/18 Principal diagnosis: TIA Patient is a 72-year-old male with a known history of mental disability, hypertension, hyperlipidemia, atrial fibrillation and history of CVA/TIA with residual right-sided weakness was brought to the hospital as the caregiver concerned about right-sided facial droop and patient was confused before coming to the hospital. Patient was having physical therapy and caregiver noticed that he had new right-sided facial droop and was also confused and could not recognize her. Patient was also having low blood pressure as a time and amylase was called. Patient was admitted to hospital for TIA possible and swallow evaluation was ordered.. Patient does need some assistance with feeding. No recent fever or chills. No cough or sputum production or shortness of breath or chest pain. No nausea vomiting or diarrhea. No bladder or bowel incontinence. Facial droop was completely resolved within 10 minutes and patient is back to baseline. Neurology was consulted for further evaluation. Laboratory data showed sodium 133 and chloride 95 BUN 23 EKG showed normal sinus rhythm CT head no acute hemorrhage or mass effect. 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 Chest x-ray showed similar aneurysmal thoracic Aorta. No acute cardiopulmonary process. 03/25/2018 Patient denied any comes of chest pain or shortness of breath. Left facial droop and confusion is much improved now. Patient is at baseline as per caregiver. Due to history of CVA/TIA and recurrent symptoms, MRI was ordered as per neurology's recommendations. MRI of the brain has not yet been performed due to needing permission from court-appointed guardian. Carotid Dopplers showed less than 50% stenosis in both internal carotid arteries. EEG was done and results are pending. PTOT and speech therapy was consulted. No nausea vomiting or abdominal pain. No chest pain or shortness of breath. No fever no chills. 03/26/2018 Patient denied any complaints today. Tolerating oral diet. Baseline mental status as per the caregiver. EEG was normal. MRI of the brain did not show any acute abnormality. Patient is resting comfortably. No compressive chest pain or shortness of breath. No other acute overnight issues. Otherwise hemoglobin did drop. FOBT as ordered but patient is having constipation currently. Ordered stool softener as well. Monitor H&H. No fever no chills. 03/27/2018 Patient is tolerating oral diet. Denied chest pain or short of breath. No fever no chills. Hemoglobin is fairly stable at 10.1. Patient still constipated. Stroke workup negative so far. Neurology has seen the patient. Patient be continued on current management and anticipate discharge on Thursday. 03/28/2018 Patient is tolerating oral diet. Did have small bowel movement. FOBT is negative. Neurologic workup is negative so far. Continue with PT OT and anticipate discharged to rehab on Thursday. No fever no chills. No acute overnight issues. Current medications reviewed. Objective - Vital Signs Vital signs: Vital Signs Temp 97.0 F L 03/28/18 08:00 Pulse 87 03/28/18 08:00 Resp 20 03/28/18 08:00 BP 110/63 03/28/18 08:00 Pulse Ox 98 03/28/18 08:00 Intake & Output 03/27/18 03/28/18 03/28/18 18:59 06:59 18:59 Intake Total 720 462 Output Total 800 Balance 720 -338 Weight 53.7 kg Intake: Oral 720 462 Output: Urine 800 Other: Voiding Method Toilet Toilet Toilet Diaper Diaper Diaper # Voids 2 1 # Bowel Movements 1 - Exam PHYSICAL EXAMINATION: Patient is lying in the bed comfortably, no acute distress, awake alert and oriented.. HEENT: Normocephalic. Neck is supple. Pupils reactive. Nostrils clear. Oral cavity is moist. Ears reveal no drainage. Neck reveals no JVD, carotid bruits, or thyromegaly. CHEST EXAMINATION: Trachea is central. Symmetrical expansion. Lung bazzi clear to auscultation and percussion. CARDIAC: Normal S1, S2 with no gallops. No murmurs ABDOMEN: Soft. Bowel sounds normal. No organomegaly. No abdominal bruits. Extremities: reveal no edema. No clubbing or cyanosis Neurologically awake, alert, oriented x2-3 with well-coordinated movements. Mentally challenged. Patient does have some right-sided weakness and right hand contractures. Skin: No rash or skin lesions. Psychiatric: Coperative. Could not be assessed completely. Musculoskeletal: No joint swelling or deformity. Normal range of motion. - Labs CBC & Chem 7: 03/27/18 08:17 03/26/18 06:31 Assessment and Plan Assessment: Right-sided facial droop with possible TIA. Resolved now. Recurrent symptoms twice during last 2 weeks. MRI negative. Dehydration and volume depletion. Improved Anemia possible chronic blood loss. FOBT negative. Hemoglobin stable. Confusion possible metabolic encephalopathy. Improved. At baseline now. Recent urinary tract infection currently on Keflex at home History of CVA/TIA Thoracic aorta aneurysm. No new changes. Hypertension Hyperlipidemia Mentally challenged dementia Anxiety/depression Previous history of smoking DVT prophylaxis Plan: Patient will be continued on telemetry monitoring and increase oral intake. Neurology is following. Continue with aspirin and Plavix and statins. Will hold Lasix. Monitor blood pressure and follow up closely. MRI of the brain showed no acute abnormality. Patient is back to baseline. Continue with neuro checks and blood pressure medications. Prognosis is guarded. Time with Patient: Greater than 30
[2018-03-28] MEDS: ISOSORBIDE MONONITRATE ER 30 MG TAB.ER.24H PO SCH (20:49)
[2018-03-28] MEDS: DIVALPROEX ER 250 MG TAB.ER.24H PO SCH (20:50)
[2018-03-28] MEDS: LISINOPRIL 20 MG TAB PO SCH (20:50)
[2018-03-28] MEDS: CLOPIDOGREL 75 MG TAB PO SCH (20:50)
[2018-03-28] MEDS: LORATADINE 10 MG TAB PO SCH (20:50)
[2018-03-28] MEDS: ASPIRIN 81 MG PO SCH (20:50)
[2018-03-28] MEDS: ATORVASTATIN 20 MG TAB PO SCH (20:50)
[2018-03-28] MEDS: DIVALPROEX 250 MG TABLET.DR PO SCH (20:50)
[2018-03-28] MEDS: QUEtiapine 25 MG TAB PO SCH (20:50)
[2018-03-29 05:34] VITALS: RESP 16
[2018-03-29] MEDS: DULoxetine HCL 60 MG CAPSULE.DR PO SCH (08:53)
[2018-03-29] MEDS: busPIRone HCl 10 MG TAB PO SCH (08:53)
[2018-03-29] MEDS: DIVALPROEX SPRINKLE 125 MG CAP.SPRINK PO SCH (08:53)
[2018-03-29] MEDS: METOPROLOL SUCCINATE (ER) 50 MG TAB.ER.24H PO SCH (08:54)
[2018-03-29] MEDS: FINASTERIDE 5 MG TAB PO SCH (08:54)
[2018-03-29] MEDS: TAMSULOSIN 0.4 MG CAP.ER.24H PO SCH (08:54)
[2018-03-29] MEDS: CLOTRIMAZOLE 1% CREAM 15 GM TUBE TOPICAL SCH (08:55)
[2018-03-29 11:39] VITALS: BMI 19.1
[2018-03-29 12:48] VITALS: BP 116/70; PULSE 52; TEMP 96.7
--- NOTE | 2018-03-29 14:00 | P.DS ---
Providers Date of admission: 03/24/18 15:52 Expected date of discharge: 03/29/18 Attending physician: Lyndon Glover Consults: 03/23/18 16:53 Consult Physician Routine Consulting Provider: Vinayak Lane Consult Reason/Comments: TIA Do you want consulting provider notified?: Yes Primary care physician: [facility] Course: Discharge diagnosis Right-sided facial droop with possible TIA. Resolved now. Recurrent symptoms twice during last 2 weeks. MRI negative. Dehydration and volume depletion. Improved Anemia possible chronic blood loss. FOBT negative. Hemoglobin stable. Confusion possible metabolic encephalopathy. Improved. At baseline now. Recent urinary tract infection currently on Keflex at home History of CVA/TIA Thoracic aorta aneurysm. No new changes. Hypertension Hyperlipidemia Mentally challenged dementia Anxiety/depression Previous history of smoking DVT prophylaxis Hospital course Patient is a 72-year-old male with a known history of mental disability, hypertension, hyperlipidemia, atrial fibrillation and history of CVA/TIA with residual right-sided weakness was brought to the hospital as the caregiver concerned about right-sided facial droop and patient was confused before coming to the hospital. Patient was having physical therapy and caregiver noticed that he had new right-sided facial droop and was also confused and could not recognize her. Patient was also having low blood pressure as a time and amylase was called. Patient was admitted to hospital for TIA possible and swallow evaluation was ordered.. Patient does need some assistance with feeding. No recent fever or chills. No cough or sputum production or shortness of breath or chest pain. No nausea vomiting or diarrhea. No bladder or bowel incontinence. Facial droop was completely resolved within 10 minutes and patient is back to baseline. Neurology was consulted for further evaluation. Laboratory data showed sodium 133 and chloride 95 BUN 23 EKG showed normal sinus rhythm CT head no acute hemorrhage or mass effect. 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 Chest x-ray showed similar aneurysmal thoracic Aorta. No acute cardiopulmonary process. 03/25/2018 Patient denied any comes of chest pain or shortness of breath. Left facial droop and confusion is much improved now. Patient is at baseline as per caregiver. Due to history of CVA/TIA and recurrent symptoms, MRI was ordered as per neurology's recommendations. MRI of the brain has not yet been performed due to needing permission from court-appointed guardian. Carotid Dopplers showed less than 50% stenosis in both internal carotid arteries. EEG was done and results are pending. PTOT and speech therapy was consulted. No nausea vomiting or abdominal pain. No chest pain or shortness of breath. No fever no chills. 03/26/2018 Patient denied any complaints today. Tolerating oral diet. Baseline mental status as per the caregiver. EEG was normal. MRI of the brain did not show any acute abnormality. Patient is resting comfortably. No compressive chest pain or shortness of breath. No other acute overnight issues. Otherwise hemoglobin did drop. FOBT as ordered but patient is having constipation currently. Ordered stool softener as well. Monitor H&H. No fever no chills. 03/27/2018 Patient is tolerating oral diet. Denied chest pain or short of breath. No fever no chills. Hemoglobin is fairly stable at 10.1. Patient still constipated. Stroke workup negative so far. Neurology has seen the patient. Patient be continued on current management and anticipate discharge on Thursday. 03/28/2018 Patient is tolerating oral diet. Did have small bowel movement. FOBT is negative. Neurologic workup is negative so far. Continue with PT OT and anticipate discharged to rehab on Thursday. No fever no chills. No acute overnight issues. Plan: Patient was continued on telemetry monitoring and increase oral intake. Neurology has seen the patient. Continue with aspirin and Plavix and statins. Will hold Lasix and hydralazine due to hypotension and dehydration.. Monitored blood pressure and follow up closely. MRI of the brain showed no acute abnormality. Patient is back to baseline mentation. Patient is stable to be discharged to infection care facility. Follow with primary care physician in 3-5 days. Prognosis is guarded. PHYSICAL EXAMINATION: Patient is lying in the bed comfortably, no acute distress, awake alert and oriented.. HEENT: Normocephalic. Neck is supple. Pupils reactive. Nostrils clear. Oral cavity is moist. Ears reveal no drainage. Neck reveals no JVD, carotid bruits, or thyromegaly. CHEST EXAMINATION: Trachea is central. Symmetrical expansion. Lung bazzi clear to auscultation and percussion. CARDIAC: Normal S1, S2 with no gallops. No murmurs ABDOMEN: Soft. Bowel sounds normal. No organomegaly. No abdominal bruits. Extremities: reveal no edema. No clubbing or cyanosis Neurologically awake, alert, oriented x2-3 with well-coordinated movements. Mentally challenged. Patient does have some right-sided weakness and right hand contractures. Skin: No rash or skin lesions. Psychiatric: Coperative. Could not be assessed completely. Musculoskeletal: No joint swelling or deformity. Normal range of motion. Vital Signs 03/29/18 03/29/18 08:00 12:00 Temperature 97.9 F 96.7 F L Pulse Rate [ 69 52 L Pulse Oximetery ] Respiratory 16 16 Rate Blood Pressure 105/60 116/70 [Left Arm] O2 Sat by Pulse 96 96 Oximetry Total time taken greater than 35 minutes including 18 minutes for counseling and coordination of care. Patient Condition at Discharge: Stable Plan - Discharge Summary Discharge Rx Participant: No New Discharge Prescriptions: New Docusate [Colace] 100 mg PO DAILY PRN #30 cap PRN Reason: Constipation Continue Simvastatin [Zocor] 40 mg PO HS@20 busPIRone HCL [Buspar] 30 mg PO BID@08,20 DULoxetine HCL [Cymbalta] 60 mg PO BID@08,20 Econazole Nitrate 1 applic TOPICAL DAILY Isosorbide Mononitrate ER [Imdur] 30 mg PO HS@20 Metoprolol Succinate [Toprol XL] 50 mg PO DAILY@08 Loratadine [Claritin] 10 mg PO HS@20 QUEtiapine FUMARATE [SEROquel] 25 - 50 mg PO HS@20 Divalproex ER [Depakote ER] 250 mg PO HS@20 Divalproex Sodium [Depakote] 250 mg PO HS@20 Divalproex Sodium [Depakote] 125 mg PO DAILY@08 Finasteride [Proscar] 5 mg PO DAILY@08 Tamsulosin [Flomax] 0.4 mg PO BID@08,20 Clopidogrel [Plavix] 75 mg PO HS@20 Aspirin [Adult Low Dose Aspirin EC] 81 mg PO DAILY@20 Benazepril HCl 20 mg PO HS@20 Discontinued Furosemide [Lasix] 20 mg PO DAILY@08 hydrALAZINE HCL [Apresoline] 50 mg PO TID@08,14,20 PRN PRN Reason: BP GREATER THAN 150 Cephalexin [Keflex] 500 mg PO Q6HR #28 cap Discharge Medication List Simvastatin [Zocor] 40 mg PO HS@20 12/17/15 [History] busPIRone HCL [Buspar] 30 mg PO BID@06/21/15 [History] DULoxetine HCL [Cymbalta] 60 mg PO BID@07/02/16 [History] Econazole Nitrate 1 applic TOPICAL DAILY 07/02/16 [History] Isosorbide Mononitrate ER [Imdur] 30 mg PO HS@07/02/16 [History] Metoprolol Succinate [Toprol XL] 50 mg PO DAILY@04/10/17 [History] Loratadine [Claritin] 10 mg PO HS@05/14/17 [History] Clopidogrel [Plavix] 75 mg PO HS@02/06/18 [History] Divalproex ER [Depakote ER] 250 mg PO HS@02/06/18 [History] Divalproex Sodium [Depakote] 125 mg PO DAILY@02/06/18 [History] Divalproex Sodium [Depakote] 250 mg PO HS@02/06/18 [History] Finasteride [Proscar] 5 mg PO DAILY@02/06/18 [History] QUEtiapine FUMARATE [SEROquel] 25 - 50 mg PO HS@02/06/18 [History] Tamsulosin [Flomax] 0.4 mg PO BID@02/06/18 [History] Aspirin [Adult Low Dose Aspirin EC] 81 mg PO DAILY@03/10/18 [History] Benazepril HCl 20 mg PO HS@03/23/18 [History] Docusate [Colace] 100 mg PO DAILY PRN #30 cap 03/27/18 [Rx] Follow up Appointment(s)/Referral(s): Tl Bernal, [NON-STAFF] - As Needed Elliot Wolf MD [Primary Care Provider] - 1-2 days Discharge Disposition: TRANSFER TO SNF/ECF
== END 2018-03-29 16:24 | DRG 69 ==
LOC: EC 13:11 → 6SEL 16:52 → OBSVTOIN 03-24 15:52 → 6SEL 03-29 16:23
PROVIDERS: ADMIT Internal Medicine; ATTEND Internal Medicine
DX: G45.9 Transient cerebral ischemic attack, unspecified (principal); G93.41 Metabolic encephalopathy; I69.351 Hemiplegia and hemiparesis following cerebral infarction affecting right dominant side; E78.5 Hyperlipidemia, unspecified; E86.0 Dehydration; F03.90 Unspecified dementia, unspecified severity, without behavioral disturbance, psychotic disturbance, mood disturbance, and anxiety; F20.9 Schizophrenia, unspecified; F32.9 Major depressive disorder, single episode, unspecified; F43.10 Post-traumatic stress disorder, unspecified; F70 Mild intellectual disabilities; I11.0 Hypertensive heart disease with heart failure; I48.91 Unspecified atrial fibrillation; I50.9 Heart failure, unspecified; K59.00 Constipation, unspecified; Z79.82 Long term (current) use of aspirin; Z87.891 Personal history of nicotine dependence; Z98.42 Cataract extraction status, left eye; Z98.41 Cataract extraction status, right eye; Z96.1 Presence of intraocular lens; Z87.820 Personal history of traumatic brain injury; I71.2 Thoracic aortic aneurysm, without rupture; Z87.440 Personal history of urinary (tract) infections; D50.0 Iron deficiency anemia secondary to blood loss (chronic)
CPT/HCPCS: 36415; 70450; 70551; 71046; 80048; 80053; 80061; 81003; 82272; 82550; 82553; 83090; 84484; 85025; 85610; 85730; 93005; 93880; 95819; 99285

== ENCOUNTER 2018-07-25 10:15 | Emergency (ER) | payer MEDICARE, OTHER ==
[2018-07-25 10:36] VITALS: TEMP 97.6
[2018-07-25] MEDS ORDERED: hydrALAZINE HCL 25 MG TAB PO STA (10:51)
[2018-07-25 11:11] LABS: Basophils % (A) 1 %; Eosinophils # (A) 0.3 k/uL (0-0.7); Eosinophils % (A) 5 %; HCT 43.9 % (39.0-53.0); HGB 14.8 gm/dL (13.0-17.5); Lymphocytes # (A) 1.3 k/uL (1.0-4.8); Lymphocytes % (A) 20 %; MCH 31.3 pg (25.0-35.0); MCHC 33.8 g/dL (31.0-37.0); MCV 92.7 fL (80.0-100.0); Mean Platelet Volume 6.7; Monocytes # (A) 0.5 k/uL (0-1.0); Monocytes % (A) 8 %; Neutrophils # (A) 4.2 k/uL (1.3-7.7); Neutrophils % (A) 64 %; Platelet Count 204 k/uL (150-450); RBC 4.74 m/uL (4.30-5.90); RDW 13.9 % (11.5-15.5); WBC 6.4 k/uL (3.8-10.6)
[2018-07-25 11:21] LABS: ALT 15 U/L (21-72); AST 44 U/L (17-59); Albumin 4.3 g/dL (3.5-5.0); Alkaline Phosphatase 64 U/L (38-126); Anion Gap 4 mmol/L; Blood Urea Nitrogen 20 mg/dL (9-20); Calcium 9.2 mg/dL (8.4-10.2); Carbon Dioxide 29 mmol/L (22-30); Chloride 104 mmol/L (98-107); Glucose 79 mg/dL (74-99); Sodium 137 mmol/L (137-145); Total Bilirubin 1.4 mg/dL (0.2-1.3); Total Protein 7.6 g/dL (6.3-8.2)
[2018-07-25 11:26] LABS: Potassium 6.1 mmol/L (3.5-5.1)
[2018-07-25] MEDS ORDERED: SODIUM CHLORIDE 0.9% 500 ML 500 ML IV ONE (11:42)
--- NOTE | 2018-07-25 12:33 | ED ---
Medical Clearance HPI - General Chief complaint: Medical Clearance Time Seen by Provider: 07/25/18 10:16 Source: patient, EMS Mode of arrival: EMS - History of Present Illness Initial comments: 72yo male with PMH of developmental delay, atrial fibrillation, hypertension, heart failure, hyperlipidemia and previous CVA presenting today for chief complaint of medication error. Patient is at a intermediate, he was actually given for medications of another patient's. This included methimazole 5 mg, metoprolol 25 mg, lithium 300 mg and oxycarbazepine 600mg. Pt did not receive own medications. EMS was called to bring patient for medical clearance so he can return to the intermediate. Pt denied SOB, dyspnea, dyspnea on exertion, leg swelling, chest pain, nausea, vomiting, abdominal pain upon arrival. Pt did afmit to left leg pain, but states this is daily. I spoke with caregivers who deny noting any behavior changes, fever, complaints, dyspnea or dyspenea upon exertion. They state patient is at baseline, and it is protocol to come for medication errors. Upon arrival pt BP elevated, remainder WNL. Pt appears well. Home medications: Home Medications Medication Instructions Recorded Confirmed Simvastatin [Zocor] 40 mg PO HS 06/21/15 07/25/18 busPIRone HCL [Buspar] 30 mg PO BID 06/21/15 07/25/18 DULoxetine HCL [Cymbalta] 60 mg PO BID 07/02/16 07/25/18 Econazole Nitrate 1 applic TOPICAL DAILY 07/02/16 07/25/18 Isosorbide Mononitrate ER [Imdur] 30 mg PO HS 07/02/16 07/25/18 Metoprolol Succinate [Toprol XL] 50 mg PO DAILY 04/10/17 07/25/18 Clopidogrel [Plavix] 75 mg PO HS 02/06/18 07/25/18 Divalproex ER [Depakote ER] 250 mg PO HS 02/06/18 07/25/18 Divalproex Sodium [Depakote] 125 mg PO DAILY 02/06/18 07/25/18 Divalproex Sodium [Depakote] 250 mg PO HS 02/06/18 07/25/18 Finasteride [Proscar] 5 mg PO DAILY 02/06/18 07/25/18 QUEtiapine FUMARATE [SEROquel] 25 mg PO HS 02/06/18 07/25/18 Tamsulosin [Flomax] 0.4 mg PO BID 02/06/18 07/25/18 Aspirin [Adult Low Dose Aspirin EC] 81 mg PO DAILY 03/10/18 07/25/18 Benazepril HCl 20 mg PO HS 03/23/18 07/25/18 Ferrous Sulfate [Feosol] 325 mg PO BID 07/25/18 07/25/18 LORazepam [Ativan] 0.25 mg PO BID 07/25/18 07/25/18 Melatonin 3 mg PO HS 07/25/18 07/25/18 Sennosides [Senna] 17.2 mg PO HS 07/25/18 07/25/18 hydrALAZINE HCL [Apresoline] 25 mg PO TID PRN 07/25/18 07/25/18 Allergies/Adverse reactions: Allergies Allergy/AdvReac Type Severity Reaction Status Date / Time No Known Allergies Allergy Verified 07/25/18 10:35 Review of Systems ROS Statement: Those systems with pertinent positive or pertinent negative responses have been documented in the HPI. ROS Other: All systems not noted in ROS Statement are negative. Past Medical History Past Medical History: Atrial Fibrillation, Heart Failure, CVA/TIA, Dementia, Hyperlipidemia, Hypertension Additional Past Medical History / Comment(s): Recent UTI-completed ABX, recently been "choking a little" swallowing impaired from tia, mild mental retardation, vertigo at times, SOB at times, left breast/chest mass, per caregiver was supposed to have mass removed and a heart cath but they were unable to do it because a hardware assembler said, "He would have 10% chance of making it alive off the table due to his heart function." History of Any Multi-Drug Resistant Organisms: None Reported Past Surgical History: Unable to Obtain Additional Past Surgical History / Comment(s): Bilateral cataracts removed with lens implants, teeth extracted. facial reconstruction, Past Anesthesia/Blood Transfusion Reactions: No Reported Reaction Past Psychological History: Anxiety, Depression, PTSD, Schizophrenia Smoking Status: Former smoker Past Alcohol Use History: None Reported Past Drug Use History: None Reported - Past Family History Father History Unknown: Yes Family Medical History: Unable to Obtain Mother History Unknown: Yes Family Medical History: Blood Disorder Additional Family Medical History / Comment(s): Mother had Factor 8 disease and was a bleeder. General Exam - General Exam Comments Initial Comments: General: The patient is awake and alert, in no distress, and does not appear acutely ill. Eye: +3 mm pupils are equal, round and reactive to light, extra-ocular movements are intact. No nystagmus. There is normal conjunctiva bilaterally. No signs of icterus. Ears, nose, mouth and throat: There are moist mucous membranes and no oral lesions. Neck: The neck is supple, there is no tenderness or JVD. Cardiovascular: There is a regular rate and rhythm. No murmur, rub or gallop is appreciated. Respiratory: Lungs are clear to auscultation, respirations are non-labored, breath sounds are equal. No wheezes, stridor, rales, or rhonchi. No signs of respiratory distress. Gastrointestinal: Soft, non-distended, non-tender abdomen without masses or organomegaly noted. There is no rebound or guarding present. Bowel sounds are unremarkable. Musculoskeletal: Normal ROM, no tenderness. Strength 5/5. Sensation intact. Radial and DP pulses equal bilaterally 2+. Neurological: A&O x 3. CN II-XII intact, There are no obvious motor or sensory deficits. Coordination appears grossly intact. Speech is normal. Skin: Skin is warm and dry and no rashes or lesions are noted. No LE edema. Psychiatric: Cooperative Limitations: altered mental status Course Vital Signs 07/25/18 07/25/18 07/25/18 10:26 11:34 13:12 Temperature 97.6 F Pulse Rate 73 68 Respiratory 22 20 Rate Blood Pressure 193/106 181/92 159/97 O2 Sat by Pulse 100 97 Oximetry Medical Decision Making - Medical Decision Making Of the 4 medications pt is currently prescribed metoprolol 50mg and was given 25 mg this morning (of other patients rx, both succinate). Patient was monitored emergency department. EKG within normal limits. Patient did have basic labs drawn revealing hyperkalemia however upon redraw after fluid bolus normal at 4.4. ROS (-). Pt is well appearing. Discussed case with Dr. Lundberg who reviewed labs and EKG. Agreeable with plan and discharge. She is agreeable discharged I questions at this time. Return for worse discussed at length with caretakers as well as patient. Verbalized understanding. Patient discharged stable condition. - Lab Data Result diagrams: 07/25/18 10:58 07/25/18 13:09 Lab Results 07/25/18 07/25/18 07/25/18 Range/Units 10:58 10:58 13:09 WBC 6.4 (3.8-10.6) k/uL RBC 4.74 (4.30-5.90) m/uL Hgb 14.8 (13.0-17.5) gm/dL Hct 43.9 (39.0-53.0) % MCV 92.7 (80.0-100.0) fL MCH 31.3 (25.0-35.0) pg MCHC 33.8 (31.0-37.0) g/dL RDW 13.9 (11.5-15.5) % Plt Count 204 (150-450) k/uL Neutrophils % 64 % Lymphocytes % 20 % Monocytes % 8 % Eosinophils % 5 % Basophils % 1 % Neutrophils # 4.2 (1.3-7.7) k/uL Lymphocytes # 1.3 (1.0-4.8) k/uL Monocytes # 0.5 (0-1.0) k/uL Eosinophils # 0.3 (0-0.7) k/uL Basophils # 0.0 (0-0.2) k/uL Sodium 137 (137-145) mmol/L Potassium 6.1 H* 4.4 (3.5-5.1) mmol/L Chloride 104 (98-107) mmol/L Carbon Dioxide 29 (22-30) mmol/L Anion Gap 4 mmol/L BUN 20 (9-20) mg/dL Creatinine 0.95 (0.66-1.25) mg/dL Est GFR (CKD-EPI)AfAm >90 (>60 ml/min/1.73 sqM) Est GFR (CKD-EPI)NonAf 79 (>60 ml/min/1.73 sqM) Glucose 79 (74-99) mg/dL Calcium 9.2 (8.4-10.2) mg/dL Total Bilirubin 1.4 H (0.2-1.3) mg/dL AST 44 (17-59) U/L ALT 15 L (21-72) U/L Alkaline Phosphatase 64 (38-126) U/L Total Protein 7.6 (6.3-8.2) g/dL Albumin 4.3 (3.5-5.0) g/dL - EKG Data EKG Comments: A 12-lead EKG was performed and shows the following: Rate is 78bpm, and rhythm is normal sinus. There are normal QRS complexes and normal R-wave progression. ST segments have no elevation or depression, and DC segments appear normal. Disposition Clinical Impression: Accidental medication error Disposition: HOME SELF-CARE Condition: Good Additional Instructions: Please use home medication as discussed. Please follow-up with family doctor in the next 2 days or as scheduled. Please return to emergency room if the symptoms increase or worsen or for any other concerns. Is patient prescribed a controlled substance at d/c from ED?: No Referrals: Elliot Wolf MD [Primary Care Provider] - 1-2 days Time of Disposition: 13:28
[2018-07-25 13:12] VITALS: BP 159/97; PULSE 68; RESP 20
== END 2018-07-25 14:25 | disposition home or self-care (01) ==
LOC: EC 10:15
DX: T38.2X1A Poisoning by antithyroid drugs, accidental (unintentional), initial encounter (principal); T44.7X1A Poisoning by beta-adrenoreceptor antagonists, accidental (unintentional), initial encounter; T56.891A Toxic effect of other metals, accidental (unintentional), initial encounter; T42.1X1A Poisoning by iminostilbenes, accidental (unintentional), initial encounter; M79.605 Pain in left leg; I48.91 Unspecified atrial fibrillation; E78.5 Hyperlipidemia, unspecified; I11.0 Hypertensive heart disease with heart failure; I50.9 Heart failure, unspecified; F03.90 Unspecified dementia, unspecified severity, without behavioral disturbance, psychotic disturbance, mood disturbance, and anxiety; I69.991 Dysphagia following unspecified cerebrovascular disease; F32.9 Major depressive disorder, single episode, unspecified; F41.9 Anxiety disorder, unspecified; Z87.891 Personal history of nicotine dependence; Z79.02 Long term (current) use of antithrombotics/antiplatelets; Z79.82 Long term (current) use of aspirin; Z79.899 Other long term (current) drug therapy; Y92.009 Unspecified place in unspecified non-institutional (private) residence as the place of occurrence of the external cause
CPT/HCPCS: 36415; 80053; 84132; 85025; 93005; 96360; 99284

== ENCOUNTER 2020-04-08 19:50 | Emergency (ER) | payer MEDICARE, OTHER ==
[~2020-04-08 19:50] MED LIST changes: +ALTEPLASE 50 MG VIAL IV ONE; -hydrALAZINE HCL 50 MG TAB PO PRN
[2020-04-08] MEDS ORDERED: Alteplase PER PHARMACY Stroke 1 EACH MISC MISCELLANE PRN (20:06)
[2020-04-08] MEDS ORDERED: niCARdipine 20 MG in SODIUM CHLORIDE 0.9% 192 ML IV SCH (20:15)
--- NOTE | 2020-04-08 20:16 | CT ---
EXAMINATION TYPE: CT brain wo con for TPA DATE OF EXAM: 04/08/2020 COMPARISON: 03/23/2018 HISTORY: CVA. CT DLP: 1270.8 mGycm Automated exposure control for dose reduction was used. There is enlargement of the ventricles. There is agenesis of the corpus callosum. There is no mass ef fect nor midline shift. There is no sign of intracranial hemorrhage. There is cerebral atrophy. The c alvarium is intact. IMPRESSION: No acute intracranial abnormality. No change compared to old exam.
[2020-04-08] MEDS: ALTEPLASE BOLUS 6 MG in EMPTY SYRINGE 1 SYR IV STA ×2 (20:22→20:51)
[2020-04-08] MEDS: ALTEPLASE 50 MG in EMPTY BAG 1 BAG IV STA ×2 (20:23→20:52)
[2020-04-08 20:36] LABS: Basophils % (A) 0 %; Eosinophils # (A) 0.1 k/uL (0-0.7); Eosinophils % (A) 1 %; HGB 15.6 gm/dL (13.0-17.5); Lymphocytes # (A) 1.3 k/uL (1.0-4.8); Lymphocytes % (A) 12 %; MCH 30.2 pg (25.0-35.0); MCHC 33.2 g/dL (31.0-37.0); MCV 90.9 fL (80.0-100.0); Mean Platelet Volume 6.9; Monocytes # (A) 0.5 k/uL (0-1.0); Monocytes % (A) 5 %; Neutrophils # (A) 8.7 k/uL (1.3-7.7); Neutrophils % (A) 81 %; Platelet Count 193 k/uL (150-450); RBC 5.17 m/uL (4.30-5.90); RDW 13.9 % (11.5-15.5); WBC 10.7 k/uL (3.8-10.6)
--- NOTE | 2020-04-08 20:42 | CT ---
EXAMINATION TYPE: CT angio head neck DATE OF EXAM: 04/08/2020 COMPARISON: 05/15/2017 HISTORY: CVA. CT DLP: 406.8 mGycm Automated exposure control for dose reduction was used. CONTRAST: Performed with IV Contrast, patient injected with 65 mL of Isovue 370. There are 3-D post processed images. Images were obtained from the aortic arch to the vertex of the b rain with IV contrast. There is normal branching pattern of the great vessels on the aortic arch. There is aneurysm of the a scending aorta that measures 4.2 cm. There is no sign of dissection. There is bilateral arterial flow in the subclavian arteries. There is bilateral arterial flow in the common internal and external car otid arteries. There is significant plaque formation and luminal narrowing of the distal left common carotid artery. There is estimated 30% stenosis. There is approximate 40% stenosis of the proximal ri ght internal carotid artery. There is arterial flow in both vertebral arteries. There is arterial brenton w in the vertebrobasilar artery system. There is arterial flow in the anterior middle and posterior cerebral arteries. There is diminished co ntrast in the left middle cerebral artery. There is no evidence of intracranial aneurysm or neovascul arity. There is no significant contrast seen in the distal arches of the left middle cerebral artery. The venous sinuses are relatively small. I see no filling defects. There is diminished bilateral posterior cerebral artery flow. IMPRESSION: There is aneurysm of the ascending aorta. There is bilateral plaque formation at the carotid artery b ifurcations and estimated stenosis 40% on the right side and 30% on the left side at the origins of t he internal carotid arteries. There is diminished flow in the left middle cerebral artery which could relate to distal thrombosis. This is a change compared to old exam. Stenosis in the internal carotid arteries is essentially new c ompared to old exam.
[2020-04-08 20:45] LABS: Partial Thromboplastin Time 22.1 sec (22.0-30.0); Prothrombin Time 10.7 sec (9.0-12.0)
[2020-04-08 20:47] LABS: ALT 12 U/L (4-49); AST 21 U/L (17-59); African American GFR (CKD) >90 (>60 ml/min/1.73 sqM); Albumin 4.1 g/dL (3.5-5.0); Alkaline Phosphatase 77 U/L (38-126); Anion Gap 11 mmol/L; Blood Urea Nitrogen 18 mg/dL (9-20); Calcium 8.8 mg/dL (8.4-10.2); Carbon Dioxide 22 mmol/L (22-30); Chloride 104 mmol/L (98-107); Glucose 153 mg/dL (74-99); Non-African American GFR(CKD) 80 (>60 ml/min/1.73 sqM); Potassium 4.8 mmol/L (3.5-5.1); Sodium 137 mmol/L (137-145); Total Bilirubin 0.6 mg/dL (0.2-1.3); Total Protein 6.8 g/dL (6.3-8.2)
[2020-04-08] MEDS ORDERED: LORazepam 2 MG/ML INJ IV STA ×2 (20:58→21:30)
[2020-04-08] MEDS ORDERED: SODIUM CHLORIDE 0.9% 50 ML MINI-BAG IV ONE (21:06)
--- NOTE | 2020-04-08 21:10 | ED ---
Neuro HPI - General Chief Complaint: Neuro Symptoms/Deficit Stated Complaint: CVA Time Seen by Provider: 04/08/20 19:50 Source: EMS Mode of arrival: EMS Limitations: altered mental status, physical limitation - History of Present Illness Is the patient presenting with stroke symptoms?: Yes Initial Comments: Patient is a 74-year-old male past mental history of A. fib, CVA, dementia who presents emergency department with acute altered mental state. He is brought in from assisted living facility by EMS. He reports that the patient was his normal self, ambulating with a walker between 6 - 6:30. At 6:30 pm the patient went to lay down in his bed. New staff came on at this time. They checked on the patient at 6:50 pm and found him to be hemiparesed on the right. Patient was dysarthric and force deviated to the left. Per staff he has normal communication with no chronic deficits from his previous strokes. He is on as pirin and Plavix for which she has not missed any doses. Patient is transferred to her facility and unable to provide a history. He is able to answer simple yes or no questions and responds to light stimuli. No known TPA administration recently. Patient does have a public guardian - Related Data Home Medications: Home Medications Medication Instructions Recorded Confirmed Simvastatin [Zocor] 40 mg PO HS 06/21/15 07/25/18 busPIRone HCL [Buspar] 30 mg PO BID 06/21/15 07/25/18 DULoxetine HCL [Cymbalta] 60 mg PO BID 07/02/16 07/25/18 Econazole Nitrate 1 applic TOPICAL DAILY 07/02/16 07/25/18 Isosorbide Mononitrate ER [Imdur] 30 mg PO HS 07/02/16 07/25/18 Metoprolol Succinate [Toprol XL] 50 mg PO DAILY 04/10/17 07/25/18 Clopidogrel [Plavix] 75 mg PO HS 02/06/18 07/25/18 Divalproex ER [Depakote ER] 250 mg PO HS 02/06/18 07/25/18 Divalproex Sodium [Depakote] 125 mg PO DAILY 02/06/18 07/25/18 Divalproex Sodium [Depakote] 250 mg PO HS 02/06/18 07/25/18 Finasteride [Proscar] 5 mg PO DAILY 02/06/18 07/25/18 QUEtiapine FUMARATE [SEROquel] 25 mg PO HS 02/06/18 07/25/18 Tamsulosin [Flomax] 0.4 mg PO BID 02/06/18 07/25/18 Aspirin [Adult Low Dose Aspirin EC] 81 mg PO DAILY 03/10/18 07/25/18 Benazepril HCl 20 mg PO HS 03/23/18 07/25/18 Ferrous Sulfate [Feosol] 325 mg PO BID 07/25/18 07/25/18 LORazepam [Ativan] 0.25 mg PO BID 07/25/18 07/25/18 Melatonin 3 mg PO HS 07/25/18 07/25/18 Sennosides [Senna] 17.2 mg PO HS 07/25/18 07/25/18 hydrALAZINE HCL [Apresoline] 25 mg PO TID PRN 07/25/18 07/25/18 Allergies/Adverse Reactions: Allergies Allergy/AdvReac Type Severity Reaction Status Date / Time No Known Allergies Allergy Verified 04/08/20 22:23 Review of Systems ROS Statement: Those systems with pertinent positive or pertinent negative responses have been documented in the HPI. ROS Other: All systems not noted in ROS Statement are negative. General Exam Limitations: altered mental status, physical limitation General appearance: alert, in no apparent distress, anxious Head exam: Present: atraumatic, normocephalic Pupils: Present: other (deviated to left) ENT exam: Present: mucous membranes moist, other (right facial droop) Neck exam: Present: normal inspection. Absent: tenderness, meningismus, lymphadenopathy Respiratory exam: Present: wheezes. Absent: respiratory distress Cardiovascular Exam: Present: tachycardia, irregular rhythm GI/Abdominal exam: Present: soft, normal bowel sounds. Absent: distended, tenderness, guarding, rebound, rigid Neurological exam: Present: other (Patient will respond to verbal stimuli. He does answer yes or no questions. He does have significant dysarthric speech. He has 0 out of 5 strength of his right upper extremity. One out of 5 strength of his bilateral lower extremities) Psychiatric exam: Present: flat affect Skin exam: Present: warm, dry, intact, normal color. Absent: rash Stroke MDM - Lab Data Result diagrams: 04/08/20 20:20 04/08/20 20:20 Lab Results 04/08/20 04/08/20 04/08/20 Range/Units 19:52 20:20 20:20 WBC 10.7 H (3.8-10.6) k/uL RBC 5.17 (4.30-5.90) m/uL Hgb 15.6 (13.0-17.5) gm/dL Hct 47.0 (39.0-53.0) % MCV 90.9 (80.0-100.0) fL MCH 30.2 (25.0-35.0) pg MCHC 33.2 (31.0-37.0) g/dL RDW 13.9 (11.5-15.5) % Plt Count 193 (150-450) k/uL Neutrophils % 81 % Lymphocytes % 12 % Monocytes % 5 % Eosinophils % 1 % Basophils % 0 % Neutrophils # 8.7 H (1.3-7.7) k/uL Lymphocytes # 1.3 (1.0-4.8) k/uL Monocytes # 0.5 (0-1.0) k/uL Eosinophils # 0.1 (0-0.7) k/uL Basophils # 0.0 (0-0.2) k/uL PT 10.7 (9.0-12.0) sec INR 1.0 (<1.2) APTT 22.1 (22.0-30.0) sec Sodium (137-145) mmol/L Potassium (3.5-5.1) mmol/L Chloride (98-107) mmol/L Carbon Dioxide (22-30) mmol/L Anion Gap mmol/L BUN (9-20) mg/dL Creatinine (0.66-1.25) mg/dL Est GFR (CKD-EPI)AfAm (>60 ml/min/1.73 sqM) Est GFR (CKD-EPI)NonAf (>60 ml/min/1.73 sqM) Glucose (74-99) mg/dL POC Glucose (mg/dL) 129 H (75-99) mg/dL POC Glu Fretted Instrument Maker Hand ID Juani Ibarra Calcium (8.4-10.2) mg/dL Total Bilirubin (0.2-1.3) mg/dL AST (17-59) U/L ALT (4-49) U/L Alkaline Phosphatase (38-126) U/L Troponin I (0.000-0.034) ng/mL Total Protein (6.3-8.2) g/dL Albumin (3.5-5.0) g/dL Valproic Acid ug/mL 04/08/20 04/08/20 04/08/20 Range/Units 20:20 20:20 20:20 WBC (3.8-10.6) k/uL RBC (4.30-5.90) m/uL Hgb (13.0-17.5) gm/dL Hct (39.0-53.0) % MCV (80.0-100.0) fL MCH (25.0-35.0) pg MCHC (31.0-37.0) g/dL RDW (11.5-15.5) % Plt Count (150-450) k/uL Neutrophils % % Lymphocytes % % Monocytes % % Eosinophils % % Basophils % % Neutrophils # (1.3-7.7) k/uL Lymphocytes # (1.0-4.8) k/uL Monocytes # (0-1.0) k/uL Eosinophils # (0-0.7) k/uL Basophils # (0-0.2) k/uL PT (9.0-12.0) sec INR (<1.2) APTT (22.0-30.0) sec Sodium 137 (137-145) mmol/L Potassium 4.8 (3.5-5.1) mmol/L Chloride 104 (98-107) mmol/L Carbon Dioxide 22 (22-30) mmol/L Anion Gap 11 mmol/L BUN 18 (9-20) mg/dL Creatinine 0.93 (0.66-1.25) mg/dL Est GFR (CKD-EPI)AfAm >90 (>60 ml/min/1.73 sqM) Est GFR (CKD-EPI)NonAf 80 (>60 ml/min/1.73 sqM) Glucose 153 H (74-99) mg/dL POC Glucose (mg/dL) (75-99) mg/dL POC Glu Fretted Instrument Maker Hand ID Calcium 8.8 (8.4-10.2) mg/dL Total Bilirubin 0.6 (0.2-1.3) mg/dL AST 21 (17-59) U/L ALT 12 (4-49) U/L Alkaline Phosphatase 77 (38-126) U/L Troponin I <0.012 (0.000-0.034) ng/mL Total Protein 6.8 (6.3-8.2) g/dL Albumin 4.1 (3.5-5.0) g/dL Valproic Acid 48.0 ug/mL - Medical Decision Making Upon arrival an NIH stroke scale is performed. Patient does have a score of 22. He is immediately sent to CT straight from the ambulance bay. Case is discussed with Dr. Austin while patient is in CT. Dr. Diaz will review films. I informed him that TPA will be delayed should the patient be a candidate due to elevated blood pressure. Dr. Diaz does review the CT of the brain and it does demonstrate a dense MCA sign on the left. He does recommend TPA. TPA is ordered as well as Cardene. Pharmacy is notified that TPA will be given and Cardene is needed as soon as possible. The patient does have blood pressure over 220 systolic upon presentation. Multiple blood pressure rechecks continue to demonstrate elevated blood pressures of 190-220 systolic/110-140 diastolic. The patient has significant contracturing of his extremities during evaluation of his blood pressures. I did attempt arterial line placement bilaterally however I am unsuccessful as the patient continues to contract his arms. Because of this, I gave the patient 1 mg of Ativan. Pharmacy does sent the Cardene and we initiated the drip at 5 mg per hour. TPA bolus delayed due to elevated blood pressures higher than 180/90 systolic. We do obtain acceptable blood pressure goal after Cardene was running and the TPA bolus was allowed to be given at 20:50. Dr. Diaz requests patient be transferred to [facility] for thrombectomy. TPA gtt hung on patient. Spoke with Dr. Forbes from [facility] who accepted transfer. Patient transferred lights and sirens to [facility]. EKG demonstrates afib with a rate of 111. QRS 88. QTC of 478. No acute ST segment elevations or depressions concerning for ischemia or infarction. Based artifact in the inferior leads Past Medical History Past Medical History: Atrial Fibrillation, Heart Failure, CVA/TIA, Dementia, Hyperlipidemia, Hypertension Additional Past Medical History / Comment(s): Recent UTI-completed ABX, recently been "choking a little" swallowing impaired from tia, mild mental retardation, vertigo at times, SOB at times, left breast/chest mass, per caregiver was supposed to have mass removed and a heart cath but they were unable to do it because a porcelain buildup assistant said, "He would have 10% chance of making it alive off the table due to his heart function." History of Any Multi-Drug Resistant Organisms: None Reported Past Surgical History: Unable to Obtain Additional Past Surgical History / Comment(s): Bilateral cataracts removed with lens implants, teeth extracted. facial reconstruction, Past Anesthesia/Blood Transfusion Reactions: No Reported Reaction Past Psychological History: Anxiety, Depression, PTSD, Schizophrenia Smoking Status: Unknown if ever smoked Past Alcohol Use History: None Reported Past Drug Use History: None Reported - Past Family History Father History Unknown: Yes Family Medical History: Unable to Obtain Mother History Unknown: Yes Family Medical History: Blood Disorder Additional Family Medical History / Comment(s): Mother had Factor 8 disease and was a bleeder. Course Vital Signs 04/08/20 04/08/20 04/08/20 19:53 20:00 20:15 Temperature 98 F 98 F 98.6 F Pulse Rate 118 H 121 H 112 H Respiratory 20 22 22 Rate Blood Pressure 146/120 145/125 151/138 O2 Sat by Pulse 86 L 89 L 100 Oximetry 04/08/20 22:36 Temperature 98.6 F Pulse Rate 106 H Respiratory 22 Rate Blood Pressure 122/110 O2 Sat by Pulse 100 Oximetry - Reevaluation(s) Reevaluation #1: Spoke with Dr. Diaz in regards to patients presenting symptoms. Will perform CT brain and CTA 04/08/20 20:01 Reevaluation #2: Spoke with Dr. Diaz again - he visualizes a dense MCA sign on the left - recommends TPA. Aware that BP is high and will need to control before TPA administration. TPA and Cardene ordered from pharmacy 04/08/20 21:14 Reevaluation #3: Spoke with public guardian who agrees to any treatment necessary 04/08/20 20:15 Reevaluation #4: Spoke with Dr. Diaz again who states as soon as BP is controlled to initiate TPA bolus and send to [place] for thrombectomy 04/08/20 20:18 Reevaluation #5: Spoke with Dr. Joe Estevez 04/08/20 20:25 Critical Care Time Critical Care Time: Yes Critical Care Time: 42 minutes Disposition Clinical Impression: Cerebrovascular accident (CVA) Disposition: OTHER INSTITUTION NOT DEFINED Condition: Serious Is patient prescribed a controlled substance at d/c from ED?: No Referrals: Elliot Wolf MD [Primary Care Provider] - 1-2 days - Out of Hospital Transfer - Req. Specs Out of Hospital Transfer - Requested Specifics: Other Emergency Center ([facility])
[2020-04-08 21:24] VITALS: RESP 22
[2020-04-08 21:25] VITALS: TEMP 98.6
--- NOTE | 2020-04-08 21:50 | XR ---
EXAMINATION TYPE: XR chest 1V portable DATE OF EXAM: 04/08/2020 COMPARISON: 03/27/2018 HISTORY: Short of breath altered mental status TECHNIQUE: FINDINGS: There is no heart failure nor confluent pneumonic infiltrate. Costophrenic angles are clear . There are chest leads. Bony thorax is intact. IMPRESSION: No active cardiopulmonary disease. No change.
[2020-04-08 22:37] VITALS: BP 122/110; PULSE 106
[2020-04-11 07:14] LABS: Glucose,Whole Blood 129 mg/dL (75-99)
== END 2020-04-08 21:38 | disposition other institution (70) ==
LOC: EC 19:50
DX: I63.9 Cerebral infarction, unspecified (principal); R29.722 NIHSS score 22; I11.0 Hypertensive heart disease with heart failure; I50.9 Heart failure, unspecified; I48.91 Unspecified atrial fibrillation; E78.5 Hyperlipidemia, unspecified; F41.9 Anxiety disorder, unspecified; F32.9 Major depressive disorder, single episode, unspecified; F43.10 Post-traumatic stress disorder, unspecified; F20.9 Schizophrenia, unspecified; Z79.899 Other long term (current) drug therapy; Z79.02 Long term (current) use of antithrombotics/antiplatelets; Z79.82 Long term (current) use of aspirin; Z79.890 Hormone replacement therapy; Z86.73 Personal history of transient ischemic attack (TIA), and cerebral infarction without residual deficits
CPT/HCPCS: 93005; 80164; 36415; 80053; 84484; 85025; 85610; 85730; 71045; 70496; 70450; 70498; 99285; 96365; 96367; 96366 ×2; 96375 ×2; J2997; J2060; Q9967